=== PATIENT | female | born 1955 | race Caucasian/White ===

== ENCOUNTER → 2021-01-30 15:25 | Outpatient (BNVA) | payer OTHER, SELFPAY | PROVIDERS: PCP Physician Assistant Medical; Visit Provider Anesthesiology ==

== ENCOUNTER 2021-05-16 10:35 | Day surgery (SDC) | payer OTHER, SELFPAY ==
[2021-05-08 15:32] VITALS: BMI 35.6
--- NOTE | 2021-05-14 13:18 | P.CONAN_ITS ---
Documented by User: Patricia Cabreraney 05/14/21 13:19 HPI - Anesthesia Eval Consult details Narrative: 65yo F for Right Diagnostic Sacroiliac Joint Innervation Injection chronic prn opioids PMFSH Active Problems Active Problems: All Active Problems (Updated 05/08/21 @ 15:35 by Nieves Blake) Sacroiliitis (Acute) Chronic pain syndrome (Acute) Spondylosis (Acute) Postlaminectomy syndrome of lumbar region (Acute) Past Medical History Medical History Arrhythmia Back pain Chronic pain syndrome GERD (gastroesophageal reflux disease) HTN (hypertension) Hx of migraine headaches Hx of seasonal allergies Postlaminectomy syndrome of lumbar region Sacroiliitis Sleep apnea Spondylosis Surgical History Surgical History H/O colonoscopy History of back surgery Hx of cholecystectomy Hx of foot surgery Social History Social History Are you a primary specialist wound care to a significant other at home: No Do you presently have visiting nurse or other home services: No Patient Tobacco Use Status: Never used Tobacco Use of substances other than those prescribed or required for medical reasons: No Have you been hit, kicked, punched, or otherwise hurt by someone within the past year? If so, by whom?: No Are you DNR?: No Advance Directives Information Provided: No Recently lost weight without trying: No Eating poorly because of decreased appetite: No Nutrition Risks: No Nutritional Risk Patient : No Poor oral hygiene: No Meds Allergies Allergy/AdvReac Type Severity Reaction Status Date / Time sulfamethoxazole Allergy Intermediate HIVES Verified 05/08/21 15:03 [From Bactrim] trimethoprim [From Bactrim] Allergy Intermediate HIVES Verified 05/08/21 15:03 COMBID Allergy Intermediate EYE Uncoded 05/08/21 15:03 MUSCLES AFFECTED Home Medications Medication Instructions Recorded Confirmed Last Taken Type colestipol 1 gram tablet 1 g PO BID 01/30/21 05/08/21 Unknown History diclofenac sodium 1 % topical gel TOPICAL 01/30/21 01/30/21 Unknown History duloxetine 60 mg capsule,delayed 60 mg PO DAILY 01/30/21 05/08/21 Unknown History release lidocaine 5 % topical patch 1 patch TOPICAL DAILY 01/30/21 05/08/21 Unknown History losartan 50 mg tablet 100 mg PO DAILY 01/30/21 05/08/21 Unknown History montelukast 10 mg tablet 10 mg PO BEDTIME 01/30/21 05/08/21 Unknown History omeprazole 20 mg capsule,delayed 20 mg PO DAILY 01/30/21 05/08/21 Unknown History release oxycodone-acetaminophen 10 mg-325 1 tab PO TID PRN 01/30/21 05/08/21 Unknown History mg tablet topiramate 100 mg tablet 100 mg PO BEDTIME 01/30/21 05/08/21 Unknown History amlodipine 2.5 mg PO DAILY 05/08/21 05/08/21 Unknown History fexofenadine [Sonja] 180 mg PO BEDTIME 05/08/21 05/08/21 Unknown History naratriptan 2.5 mg PO Q4H PRN 05/08/21 05/08/21 Unknown History triamcinolone acetonide [Nasacort] 1 spray INTRANASAL DAILY 05/08/21 05/08/21 Unknown History Exam Exam Date and Time: May 14, 2021 1318 Height,Weight and Vital Signs: Height 5 ft 2 in Weight 88.451 kg Assessment and Plan Assessment Anesthesia Assessment: Chart Reviewed Documented by User: Gisselle Shaw 05/16/21 11:26 [facility] Past Medical History Medical History Arrhythmia Back pain Chronic pain syndrome GERD (gastroesophageal reflux disease) HTN (hypertension) Hx of migraine headaches Hx of seasonal allergies Postlaminectomy syndrome of lumbar region Sacroiliitis Sleep apnea Spondylosis Family History Family history of problems with anesthesia: No Surgical History Surgical History H/O colonoscopy History of back surgery Hx of cholecystectomy Hx of foot surgery History of Problems with Anesthesia: No Social History Social History Are you a primary specialist wound care to a significant other at home: No Do you presently have visiting nurse or other home services: No Patient Tobacco Use Status: Never used Tobacco Use of substances other than those prescribed or required for medical reasons: No Have you been hit, kicked, punched, or otherwise hurt by someone within the past year? If so, by whom?: No Are you DNR?: No Advance Directives Information Provided: No Recently lost weight without trying: No Eating poorly because of decreased appetite: No Nutrition Risks: No Nutritional Risk Patient : No Poor oral hygiene: No Meds Allergies Allergy/AdvReac Type Severity Reaction Status Date / Time sulfamethoxazole Allergy Intermediate HIVES Verified 05/08/21 15:03 [From Bactrim] trimethoprim [From Bactrim] Allergy Intermediate HIVES Verified 05/08/21 15:03 COMBID Allergy Intermediate EYE Uncoded 05/08/21 15:03 MUSCLES AFFECTED Home Medications Medication Instructions Recorded Confirmed Last Taken Type colestipol 1 gram tablet 1 g PO BID 01/30/21 05/08/21 Unknown History diclofenac sodium 1 % topical gel TOPICAL 01/30/21 01/30/21 Unknown History duloxetine 60 mg capsule,delayed 60 mg PO DAILY 01/30/21 05/08/21 Unknown History release lidocaine 5 % topical patch 1 patch TOPICAL DAILY 01/30/21 05/08/21 Unknown History losartan 50 mg tablet 100 mg PO DAILY 01/30/21 05/08/21 Unknown History montelukast 10 mg tablet 10 mg PO BEDTIME 01/30/21 05/08/21 Unknown History omeprazole 20 mg capsule,delayed 20 mg PO DAILY 01/30/21 05/08/21 Unknown History release oxycodone-acetaminophen 10 mg-325 1 tab PO TID PRN 01/30/21 05/08/21 Unknown History mg tablet topiramate 100 mg tablet 100 mg PO BEDTIME 01/30/21 05/08/21 Unknown History amlodipine 2.5 mg PO DAILY 05/08/21 05/08/21 Unknown History fexofenadine [Sonja] 180 mg PO BEDTIME 05/08/21 05/08/21 Unknown History naratriptan 2.5 mg PO Q4H PRN 05/08/21 05/08/21 Unknown History triamcinolone acetonide [Nasacort] 1 spray INTRANASAL DAILY 05/08/21 05/08/21 Unknown History Exam Height,Weight and Vital Signs: Vital Signs Temp Pulse Resp BP Pulse Ox 05/16/21 11:18 98.5 F 89 16 152/70 H 99 Airway Mallampati Class: II TM Dist: >3cm Neck ROM: Full Loose/Missing/Broken Teeth: Yes (Extractions) Heart: RRR Lungs: CTAB Assessment and Plan Assessment Anesthesia Assessment: Anesthesia Plan Discussed and Chart Reviewed Final Anesthetic Review NPO: Yes ASA Class: III Final Preanesthetic Review: No Changes in Pt Med Stat, Meds/Allgs Chart Reviewed, Consent Obtained/Reviewed and Anes Risks/Benef Reviewed Patient Risk: Intermediate Procedure Risk: Low Assessment/Block/Sedation in SS: Assess/Block/Sedation-SS Anesthetic Plan Anesthetic Plan: GA and MAC: Disposition: Standard PACU
--- NOTE | ~2021-05-16 | FL_ITS ---
EXAMINATION: XR FLUOROSCOPY WITH IMAGES CLINICAL INFORMATION: SI joint innervation/injection. COMPARISON: None. TECHNIQUE: Fluoroscopy performed by Dr. Manolo Tesfaye. Fluoroscopy time: 0.4 minutes DAP: 5.70 mGycm2 Images: 1 FINDINGS: There is normal symmetry of bilateral SI joints without any bony erosive changes. No visible acute fracture or lytic process seen. There are bilateral pedicular screws at L5 vertebra interconnecting kirsten superiorly. There is a disc prosthesis at the L4-L5 disc level. There are small metallic wires overlying the left sacrum. Fluoroscopy was provided for pain management. FL/FL guidance in OR IMPRESSION: Fluoroscopy was provided to referring physician for SI joint injection/pain management.
[2021-05-16 11:18] VITALS: BP 152/70; PULSE 89; RESP 16; TEMP 36.9; O2SAT 99
[2021-05-16] MEDS: Lactated Ringers 1,000 ML 100 ML IVCONT (11:41)
--- NOTE | 2021-05-16 12:50 | MHC.SHP ---
Pre-Procedural Eval Section A Date of Service: 05/16/21 Section B Chief Complaint: Postlaminectomy syndrome of lumbar region Details of Present Illness: postlaminectomy syndrome. sacroiliitis . Allergies: Allergies Allergy/AdvReac Type Severity Reaction Status Date / Time sulfamethoxazole Allergy Intermediate HIVES Verified 05/08/21 15:03 [From Bactrim] trimethoprim [From Bactrim] Allergy Intermediate HIVES Verified 05/08/21 15:03 COMBID Allergy Intermediate EYE Uncoded 05/08/21 15:03 MUSCLES AFFECTED Review of Systems Sugical H&P ROS: Negative: Cardiovascular, Neurological, Psychiatric, Hem-Onc, Allergic/Immunologic, Gastrointestinal, Genitourinary, Integumentary, Endocrine and Eyes/Ears/Nose/Throat and Yes, Specify: Constitution ( Obesity), Respiratory ( obstructive sleep apnea) and Musculoskeletal ( sacroiliitis) Exam Surgical H&P Exam: Normal: HEENT, Normal: Heart, Normal: Lungs, Normal: Extremities, Normal: Abdomen, Normal: Skin and Normal: Neurological Plan Diagnosis/Plan: Unchanged I have reviewed the history and physical and performed a pertinent physical examination on my patient. No changes have occurred unless specified.
[2021-05-16 14:00] VITALS: BP 158/97; PULSE 97; RESP 24; TEMP 36.2; O2SAT 96
[2021-05-16 14:05] VITALS: BP 122/80; PULSE 97; RESP 16; O2SAT 96
--- NOTE | 2021-05-16 14:05 | PM.OP ---
Brief Operative Note Date of Service: 05/16/21 Pre-op diagnosis: Postlaminectomy syndrome. Sacroiliitis Post-op diagnosis: same Procedure: right sacroiliac joint innervation injection. Implants: None Surgeon: Manolo Tesfaye MD Anesthesia: GETA Was an Employee Training Specialist used for this Procedure?: No Estimated blood loss (mL): 2 Condition: stable Disposition: PACU
--- NOTE | 2021-05-16 14:06 | P.OP_ITS ---
Operative Note Operative Note Date of Service: 05/16/21 Narrative: Right SI joint innervation injection. Informed consent was explained thoroughly to the patient. All questions about benefits and risks for the procedure were answered. Patient came to the operating room she was positioned prone on the operating table with the pillow under her pelvis. [employer] [place] [employer]hes[employer] monitors were applied and patient was induced with GETA and transfered prone on the ORT. All pressure points were protected. Opioids and ketamine were avoided during the sedation. Her lower back and buttocks was prepped with ChloraPrep prepped and draped with sterile towels. Sterilely draped C-arm was brought over the operating field and sq picture of patient's pelvis was demonstrated on the screen. extensive hardware was noted in the lumbar spine Hardware was obstructing the view of the right L5 pedicle and surrounding area of the right transvers and superior articilar process. The point of interests were delineated 1st: Point A as Right S1 superior articular process at it's connection with sacral alae. The point B was determined as the lowest point of the Right sacroiliac joint on sacral side of the joint. The rest of the point of interests were determined as the line between the point a endpoint be . The needles between point a endpoint bewere planned to insert in the straight line in palisade fashion. The skin in the projection of the points of interest were injected with small amount of local lidocaine 2%, after that 22 gauge 3-1/2 inch needles were driven to the point of interest in tunnel vision fashion. When needles gently contacted the bone- the each point of interest small amount of bupivacaine 0.5% less than 1 cc was injected each needle. Upon completion of the injections the needles were removed sterile dressing was applied. The patient tolerated procedure well. She went outside of the operating room to PACU where she recovered uneventfully. She went home without immediate complications.
[2021-05-16 14:10] VITALS: BP 141/93; PULSE 86; RESP 16; O2SAT 96
[2021-05-16 14:16] VITALS: BP 116/62; PULSE 98; RESP 16; O2SAT 96
[2021-05-16 14:30] VITALS: BP 136/74; PULSE 87; RESP 16; TEMP 36.2; O2SAT 96
== END 2021-05-16 14:58 | disposition home or self-care (01) ==
PROVIDERS: PCP Physician Assistant Medical; Visit Provider Anesthesiology
PROC: (CPT 64451; principal; 2021-05-16 11:30)
DX: M96.1 Postlaminectomy syndrome, not elsewhere classified (principal); M46.1 Sacroiliitis, not elsewhere classified; G89.29 Other chronic pain; I10 Essential (primary) hypertension; G47.33 Obstructive sleep apnea (adult) (pediatric); Z79.899 Other long term (current) drug therapy; Z99.89 Dependence on other enabling machines and devices
CPT/HCPCS: 64451; J0330; J1100; J2250; J2405

== ENCOUNTER → 2021-05-22 09:36 | Outpatient (BNVA) | payer OTHER, SELFPAY | PROVIDERS: PCP Physician Assistant Medical; Visit Provider Anesthesiology ==

== ENCOUNTER 2021-07-11 08:53 | Day surgery (SDC) | payer OTHER, SELFPAY ==
--- NOTE | 2021-07-10 17:12 | MHC.SHP ---
Pre-Procedural Eval Section A Date of Service: 07/11/21 Section B Chief Complaint: Sacroiliac Joint Dysfunction of Right Side Details of Present Illness: as above Relevant Family History (Specify if Yes): No Relevant Social History: None Present Medications: see Short Stay Collaborative assessment Medical History: No relevant PMH History of Previous Operations: No relevant previous surgery Allergies: Allergies Allergy/AdvReac Type Severity Reaction Status Date / Time sulfamethoxazole Allergy Intermediate HIVES Verified 05/22/21 09:37 [From Bactrim] trimethoprim [From Bactrim] Allergy Intermediate HIVES Verified 05/22/21 09:37 COMBID Allergy Intermediate EYE Uncoded 05/08/21 15:03 MUSCLES AFFECTED Review of Systems Sugical H&P ROS: Negative: Constitution, Cardiovascular, Respiratory, Neurological, Psychiatric, Hem-Onc, Allergic/Immunologic, Gastrointestinal, Genitourinary, Musculoskeletal, Integumentary, Endocrine and Eyes/Ears/Nose/Throat Exam Surgical H&P Exam: Normal: HEENT, Normal: Heart, Normal: Lungs, Normal: Extremities, Normal: Abdomen, Normal: Skin and Normal: Neurological Plan Diagnosis/Plan: Unchanged I have reviewed the history and physical and performed a pertinent physical examination on my patient. No changes have occurred unless specified.
--- NOTE | ~2021-07-11 | FL_ITS ---
EXAMINATION: XR FLUOROSCOPY WITH IMAGES CLINICAL INFORMATION: SI joint fusion. COMPARISON: Previous exam May 2021 TECHNIQUE: Fluoroscopy performed by Dr. Manolo Tesfaye. Fluoroscopy time: 1.1 minutes DAP: 13 mGy-cm2 Images: 2 FINDINGS: There is posterior fusion hardware in the lower lumbar spine. There is a new surgical device projecting over the proximal right sacroiliac joint. FL/FL guidance in OR IMPRESSION: Fluoroscopic guidance for sacroiliac joint procedure.
[2021-07-11 09:11] VITALS: BMI 35.6
[2021-07-11 09:17] VITALS: BP 171/77; PULSE 85; RESP 16; TEMP 36.4; O2SAT 98
--- NOTE | 2021-07-11 09:53 | HO.ANESPROP2 ---
HPI - Anesthesia Eval Consult details Narrative: Chronic SI joint pain PMFSH Active Problems Active Problems: All Active Problems (Updated 05/22/21 @ 10:01 by Manolo Tesfaye MD) Sacroiliac joint dysfunction of right side (Acute) Sacroiliitis (Acute) Chronic pain syndrome (Acute) Spondylosis (Acute) Postlaminectomy syndrome of lumbar region (Acute) Past Medical History Medical History Arrhythmia Back pain Chronic pain syndrome GERD (gastroesophageal reflux disease) HTN (hypertension) Hx of migraine headaches Hx of seasonal allergies Postlaminectomy syndrome of lumbar region Sacroiliac joint dysfunction of right side Sacroiliitis Sleep apnea Spondylosis Family History Family history of problems with anesthesia: No Surgical History Surgical History H/O colonoscopy History of back surgery Hx of cholecystectomy Hx of foot surgery History of Problems with Anesthesia: No Social History Social History Are you a primary child day care teacher to a significant other at home: No Do you presently have visiting nurse or other home services: No Patient Tobacco Use Status: Never used Tobacco Use of substances other than those prescribed or required for medical reasons: No Are you DNR?: No Advance Directives: No Advance Directives Information Provided: Yes Meds Allergies Allergy/AdvReac Type Severity Reaction Status Date / Time sulfamethoxazole Allergy Intermediate HIVES Verified 07/11/21 09:11 [From Bactrim] trimethoprim [From Bactrim] Allergy Intermediate HIVES Verified 07/11/21 09:11 COMBID Allergy Intermediate EYE Uncoded 05/08/21 15:03 MUSCLES AFFECTED Active Medications: Current Medications Generic Name Dose Route Start Last Admin Trade Name Freq PRN Reason Stop Dose Admin Fentanyl 50 mcg 07/11/21 09:51 Fentanyl Citrate/Pf 100 Mcg/2 Ml Vial IVPUSH Q5M PRN Pain, Severe (Pain Scale 7-10) Protocol Hydromorphone HCl 0.5 mg 07/11/21 09:51 Hydromorphone Hcl 0.5 Mg/0.5 Ml Syringe IVPUSH Q5M PRN Pain, Severe (Pain Scale 7-10) Protocol Lactated Ringer's 1,000 mls @ 50 mls/hr 07/11/21 10:00 Lr IVCONT .Q20H JESSICA Promethazine HCl 6.25 mg/ 50.25 mls @ 201 mls/hr 07/11/21 09:51 Sodium Chloride IV ONCE PRN Nausea and Vomiting Ondansetron HCl 4 mg 07/11/21 09:51 Ondansetron Hcl 4 Mg/2 Ml Vial IVPUSH ONCE PRN Nausea and Vomiting Oxycodone HCl 10 mg 07/11/21 09:51 Oxycodone Hcl Immed Release 5 Mg Tablet PO ONCE PRN Pain, Severe (Pain Scale 7-10) Home Medications Medication Instructions Recorded Confirmed Last Taken Type colestipol 1 gram tablet 1 g PO BID 01/30/21 05/08/21 Unknown History diclofenac sodium 1 % topical gel TOPICAL 01/30/21 01/30/21 Unknown History duloxetine 60 mg capsule,delayed 60 mg PO DAILY 01/30/21 05/08/21 07/11/21 06:30 History release lidocaine 5 % topical patch 1 patch TOPICAL DAILY 01/30/21 05/08/21 Unknown History losartan 50 mg tablet 100 mg PO DAILY 01/30/21 05/08/21 Unknown History montelukast 10 mg tablet 10 mg PO BEDTIME 01/30/21 05/08/21 Unknown History omeprazole 20 mg capsule,delayed 20 mg PO DAILY 01/30/21 05/08/21 07/11/21 06:30 History release oxycodone-acetaminophen 10 mg-325 1 tab PO TID PRN 01/30/21 05/08/21 07/11/21 08:30 History mg tablet Half 0630, Half 0830 topiramate 100 mg tablet 100 mg PO BEDTIME 01/30/21 05/08/21 Unknown History amlodipine 2.5 mg tablet 2.5 mg PO DAILY 05/08/21 05/08/21 05/16/21 09:00 History fexofenadine 180 mg tablet 180 mg PO BEDTIME 05/08/21 05/08/21 Unknown History naratriptan 2.5 mg tablet 2.5 mg PO Q4H PRN 05/08/21 05/08/21 Unknown History triamcinolone acetonide 55 mcg 1 spray INTRANASAL DAILY 05/08/21 05/08/21 Unknown History nasal spray aerosol (Nasacort) Exam Exam Date and Time: July 11, 2021 0953 Height,Weight and Vital Signs: Height 5 ft 2 in Weight 88.451 kg Last Vital Signs Temp 97.5 F 07/11/21 09:17 Pulse 85 07/11/21 09:17 Resp 16 07/11/21 09:17 BP 171/77 H 07/11/21 09:17 Pulse Ox 98 07/11/21 09:17 Airway Mallampati Class: II TM Dist: >3cm Neck ROM: Full Loose/Missing/Broken Teeth: No Heart: [id number] Lungs: cta b/l Assessment and Plan Assessment Anesthesia Assessment: Anesthesia Plan Discussed, PAT Visit and Chart Reviewed Final Anesthetic Review Family History of Problems with Anesthesia: No History of Problems with Anesthesia: No NPO: Yes ASA Class: III Final Preanesthetic Review: No Changes in Pt Med Stat, Meds/Allgs Chart Reviewed, Consent Obtained/Reviewed and Anes Risks/Benef Reviewed Patient Risk: Intermediate Procedure Risk: Low Assessment/Block/Sedation in SS: Assess/Block/Sedation-SS Anesthetic Plan Anesthetic Plan: GA and Agree w/ Assess. and Plan Disposition: Standard PACU
[2021-07-11] MEDS: Lactated Ringers 1,000 ML 50 ML IVCONT (09:54)
--- NOTE | 2021-07-11 12:46 | PM.OP ---
Brief Operative Note Date of Service: 07/11/21 Pre-op diagnosis: Postlaminectomy syndrome sacroiliitis right Procedure: Sacroiliac joint fusion right Implants: Cadaver bone sacroiliac joint wedge. Surgeon: Manolo Tesfaye MD Anesthesia: GETA Was an Soaking Tank Worker used for this Procedure?: No Estimated blood loss (mL): 85 Pathology: none sent Condition: stable Disposition: PACU
[2021-07-11 12:50] VITALS: BP 110/64; PULSE 91; RESP 14; TEMP 36.2; O2SAT 97
[2021-07-11 12:55] VITALS: BP 123/64; PULSE 98; RESP 16; O2SAT 98
--- NOTE | 2021-07-11 12:56 | W.PM.OPN ---
Operative Note Operative Note Date of Service: 07/11/21 Narrative: Sacroiliac joint stabilisation procedure. 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 The patient was administered 2 grams cefazolin IV approximately 15 minutes before the start of the procedure.?Time-out was performed delineating correct site, side, and nature of the procedure, name and date of of the patient, risk of fire, need for DVT prophylaxis, need for antibiotics.? The patient was transferred?on?radiolucent table. All pressure points were protected again. Lower back and bilateral buttocks were prepped with ChloraPrep and draped with full body drape. 3. 5 cm posterior midline incision over the projection of the right S1 foramina was performed.? Soft tissue dissection done to sacroiliac joint and thorough blind dissection was made in the direction of the?sacroiliac joint.? K-wire pin was inserted into the sacroiliac joint and guiding instrument was inserted into the joint using the pin as a guide and advanced into the joint on the intermittent anterior posterior and lateral views.??? After that pin was removed and rasping device was inserted to broach and rasp sacroiliac joint.? Once joint was prepared and inserted the structural allograft implant was hammered into the joint . It was packed with ortho biologics in and around the implant to provide better opportunity? for bones fusion.? Surgery was concluded by performing standard suture closing technique.? The position of the allograft was confirmed radiographically.? The wound was irrigated hemostasis was achieved wound was closed in 2 layers. Five mary were applied. Sterile?dressing was applied with bacitracin ointment The patient tolerated procedure well she was awaken and taken outside of the operating room to PACU where she recovered uneventfully. She went home without immediate complications. She will be wearing an SI joint fixation belt for the 6 weeks after the procedure.
[2021-07-11 13:00] VITALS: BP 109/62; PULSE 86; RESP 16; O2SAT 96
[2021-07-11 13:05] VITALS: BP 118/64; PULSE 90; RESP 16; O2SAT 98
[2021-07-11] MEDS: oxyCODONE HCl Immed Release 5 MG TABLET 10 MG PO (13:19)
[2021-07-11 13:20] VITALS: BP 139/66; PULSE 98; RESP 16; TEMP 36.2; O2SAT 97
== END 2021-07-11 14:03 | disposition home or self-care (01) ==
PROVIDERS: PCP Physician Assistant Medical; Visit Provider Anesthesiology
PROC: (CPT 27279; principal; 2021-07-11 10:30)
DX: M53.3 Sacrococcygeal disorders, not elsewhere classified (principal); M46.1 Sacroiliitis, not elsewhere classified; G89.4 Chronic pain syndrome; M96.1 Postlaminectomy syndrome, not elsewhere classified; I10 Essential (primary) hypertension; G47.33 Obstructive sleep apnea (adult) (pediatric); Z79.899 Other long term (current) drug therapy; Z88.2 Allergy status to sulfonamides
CPT/HCPCS: 27279; C1713; J0690; J1100; J2250; J2370; J2405; J3010; J3370

== ENCOUNTER → 2021-07-17 10:56 | Outpatient (BNVA) | payer OTHER, SELFPAY | PROVIDERS: PCP Physician Assistant Medical; Visit Provider Anesthesiology ==

== ENCOUNTER → 2021-07-23 13:37 | Outpatient (BNVA) | payer OTHER, SELFPAY | PROVIDERS: PCP Physician Assistant Medical; Visit Provider Anesthesiology ==

== ENCOUNTER → 2021-08-25 12:59 | Outpatient (BNVA) | payer OTHER, SELFPAY | PROVIDERS: PCP Physician Assistant Medical; Visit Provider Anesthesiology ==

== ENCOUNTER 2021-09-15 08:42 | Outpatient (REF) | payer OTHER, SELFPAY ==
--- NOTE | ~2021-09-15 | XR_ITS ---
EXAMINATION: XR PELVIS CLINICAL INFORMATION: Sacrococcygeal disorder, not elsewhere classified. COMPARISON: None TECHNIQUE: AP view of the pelvis. FINDINGS: The bony alignments are intact. The cortices are intact. Both SI joints and hip joints as well as symphysis pubis appear unremarkable. Postsurgical changes are noted within the included visualized lower lumbar spine. There is a radiopaque density seen projecting over the right-sided ala of the sacrum, not optimally evaluated on this single frontal view. The soft tissues are unremarkable. XR/XR pelvis min 3V IMPRESSION: 1. Single frontal view of the pelvis shows postsurgical changes within the lower lumbar spine with intact visualized hardware. 2. Radiopaque density projecting over the right-sided ala of the sacrum, not optimally evaluated on this single frontal projection 3. Unremarkable radiographic appearance of both SI joints, symphysis pubis and both hips. 4. Unremarkable soft tissues.
== END 2021-09-15 08:43 | disposition home or self-care (01) ==
LOC: HO.XRAY 08:42
PROVIDERS: PCP Physician Assistant Medical; Visit Provider Anesthesiology
DX: M53.3 Sacrococcygeal disorders, not elsewhere classified (principal); M54.2 Cervicalgia; Z98.1 Arthrodesis status; Z98.890 Other specified postprocedural states
CPT/HCPCS: 72190

== ENCOUNTER 2021-09-22 12:27 | Outpatient (REF) | payer MEDICARE, SELFPAY ==
--- NOTE | ~2021-09-22 | XR_ITS ---
EXAMINATION: XR PELVIS CLINICAL INFORMATION: Pain COMPARISON: Previous x-ray 09/15/2021 TECHNIQUE: Lateral view of the pelvis FINDINGS: There is orthopedic hardware with posterior rods and interpedicular screws in the lower spine at L4 and L5. The sacrum and coccyx are normal-appearing. The radiopaque density projecting over the right proximal sacrum on 09/15/2021 AP pelvis x-ray is not identified on the lateral view. XR/XR pelvis 1-2V IMPRESSION: Postsurgical changes to the lower lumbar spine. Normal-appearing sacrum.
== END 2021-09-22 12:28 | disposition home or self-care (01) ==
LOC: HO.XRAY 12:27
PROVIDERS: PCP Physician Assistant Medical; Visit Provider Anesthesiology
DX: M53.3 Sacrococcygeal disorders, not elsewhere classified (principal); M46.1 Sacroiliitis, not elsewhere classified; G89.4 Chronic pain syndrome
CPT/HCPCS: 72170

== ENCOUNTER → 2021-09-29 09:18 | Outpatient (BNVA) | payer MEDICARE, SELFPAY | PROVIDERS: PCP Physician Assistant Medical; Visit Provider Anesthesiology | DX: Z51.81 Encounter for therapeutic drug level monitoring (principal); M53.3 Sacrococcygeal disorders, not elsewhere classified | CPT/HCPCS: 99212 ==

== ENCOUNTER 2021-09-30 06:32 | Outpatient (REF) | payer MEDICARE, SELFPAY | END 2021-09-30 06:33 | disposition home or self-care (01) | LOC: HO.RADIR 06:32 | PROVIDERS: Visit Provider Anesthesiology | DX: Z13.89 Encounter for screening for other disorder (principal) ==

== ENCOUNTER 2025-06-01 10:59 | Outpatient (AMB) | payer MEDICARE, SELFPAY ==
--- NOTE | 2025-06-01 11:02 | A.SPINEOV_ITS ---
Vital Signs 06/01/25 11:06 Height 5 ft 2 in Weight 230 lb BMI 42.1 Intake Visit Reasons: pain left side of back going leg Intake Note: Ms. Styles is here today c/o Low back pain on the left side going down the leg. 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 Allergies sulfamethoxazole (From Bactrim) Allergy (Intermediate, Verified 06/01/25 11:07) HIVES trimethoprim (From Bactrim) Allergy (Intermediate, Verified 06/01/25 11:07) HIVES COMBID Allergy (Intermediate, Uncoded 05/08/21 15:03) EYE MUSCLES AFFECTED Physical Exam Vital Signs: BMI result Body Mass Index 42.1 Assessment & Plan Assessment & Plan (1) Lumbar back pain with radiculopathy affecting left lower extremity: Code(s): M54.16 - Radiculopathy, lumbar region Category: Medical (2) Neural foraminal stenosis of lumbar spine: Code(s): M48.061 - Spinal stenosis, lumbar region without neurogenic claudication Category: Medical Plan Dear colleague Thank you for referring Martha Styles to the office today with a chief complaint of left leg pain. HPI: This 69-year-old female is status post 3 level lumbar fusion 2018. She states that proximally 3 months ago she developed left leg pain that radiates into the groin to the outside of her thigh lower leg and to the top of her foot. The pain is severe and constant. No numbness or weakness. A 2nd complaint is bilateral pain in the SI joint regions. She can not lay on her side. The pain wakes her up at night. She had a bilateral nerve block done by Dr. Monsalve but has not noted any difference. She opted her oxycodone from her half tablet they to 1.5 tablets a day to control her pain. In addition she uses Voltaren cream, Cymbalta PMH: Hypertension, prediabetes and allergies Medications: Vitamin-B, buprenorphine, coenzyme Q10, diclofenac gel, duloxetine, fexofenadine, indapamide, lidocaine 5% patch, losartan, montelukast, nasal cord p.r.n., omeprazole, oxycodone 08/10/2025, pregabalin, tirzepatide weekly Allergies: Combid and Bactrim Social history: . Nonsmoker Physical Exam: Pleasant female in agony. She walks with a flexed position. Straight leg raise produces pain down her left leg in an L5 distribution. There is pain over the bilateral SI joints. However provocative SI joint tests are negative. No motor or sensory deficits. Radiological Studies: MRI done at [facility] on 01/08/2025 shows status post L2-L5 lumbar fusion. More importantly there is severe left L5 foraminal stenosis due to bone spur. Impression/Plan: This patient is suffering from a left L5 lumbar radiculopathy explained by a left L5 foraminal stenosis. She also is experiencing some symptoms of sacroiliitis. However the left lumbar radiculopathy is new and debilitating to the patient. I offered her foraminotomy to decompress the nerve root. She is tentatively scheduled for 07/12/2025. She will get preoperative clearance from the primary care physician. She needs to stop her tirzepatide 1 week prior to surgery Thank you for allowing me to participate in your patients care. total time spent was 50 minutes in counseling ,coordination of plan, personal review of imaging, surgical decision making and subsequent plan Juarez Elizabeth MD, PhD Spine Fellowship Trained Neurosurgeon Director, [facility] Coding Level of Care Code New Pt Level 4 (32210) Diagnoses Lumbar back pain with radiculopathy affecting left lower extremity M54.16 Neural foraminal stenosis of lumbar spine M48.061
[2025-06-01 11:06] VITALS: BMI 42.1
--- OUTSIDE RECORDS SUMMARY | 2025-06-01 11:09 | XMS_ITS | Patient Health Record ---
[facility] [place] Address [address] [place] [id number] Care Team Providers Care Demo Coordinator Name Role Phone Colin Leiva MD Primary Care Provider Ricardo Lo Unavailable [phone] Allergies Allergen (clinical drug ingredient) Drug/Non Drug Allergy documented on EMR Reaction Allergy Type Onset Date Status Information temporarily unavailable combid eye trouble Drug Allergy Active Information temporarily unavailable sulfa hives Drug Allergy Active Reason For Referral No Information Medications Medication SIG (Take, Route, Frequency, Duration) Notes Start Date End Date Status Nabumetone 750 MG 1 tablet Orally ONCE A DAY WITH FOOD; Duration: 30 day(s) Active Sonja Active Topamax 100 mg qd Activ e hydroCHLOROthiazide 25 mg qd Active Fluticasone Furoate 27.5 MCG/SPRAY 2 puffs in each nostril Nasally Once a day; Duration: 30 day(s) Active Physical Therapy 3-4x per week for 3- 4 weeks 10/28/2011 Active Problems Problem Type SNOMED Code ICD Code Onset Dates Problem Status W/U Status Risk Notes Problem Plantar Fasciitis (728.71) Active confirmed Plan Of Treatment Pending Test Test Name Order Date [id number] TENDON SHEATH/LIGAMENT 1 12/16/2010 Insurance Providers Payer Name Payer Address Payer Phone Subscriber Number Group Number Insured Name Patient Relationship to Insured Coverage Start Date Coverage End Date [facility] [address] [place] [address] [phone] [id number] Martha Styles Self - patient is the insured Medical (General) History Medical History History ICD Code mumps measles hypertension headaches/migraines back, hip, knee pain asthma Surgical History Surgery Date(Month/Year) cholecystectomy tubal ligation topaz left foot
--- OUTSIDE RECORDS SUMMARY | 2025-06-01 11:09 | XMS_ITS | Clinical Summary ---
Author Organization [facility] [address] [place] [address] [place] [phone] Phone Care Team Providers Care Medical Transcription Supervisor Name Role Phone Petros Wren Primary Care Provider [phone] Allergies Active Allergy Reactions Criticality Noted Date Comments Other Other 02/10/2006 Combid, Eyes rolled back in head Sulfa (Sulfonamide Antibiotics) Hives Medium 12/17/2006 RASH Medications MULTIVITAMIN ORAL Take by mouth 1 (one) time each day. With iron Active diclofenac (VOLTAREN) 1 % topical gel Apply 3 g topically 3 (three) times a day. 11/12/19 23 Active fexofenadine (ROXANE) 180 mg tablet Take 1 tablet (180 mg total) by mouth 1 (one) time each day. Active lidocaine (LIDODERM) 5 % patch Place 3 patches on the skin 1 (one) time each day. for 360 days. Apply for no more than 12 hours in any 24 hour period. 05/17/20 23 Active oxyCODONE-acet aminophen (PERCOCET) 10-325 mg per tablet Take 1 tablet by mouth every 8 (eight) hours if needed (Pain). 01/28/20 24 Active triamcinolone (Nasacort) 55 mcg nasal inhaler Administer 1 spray into affected nostril(s) 1 (one) time each day. 12/22/19 17 Active buprenorphine (BUTRANS) 20 mcg/hour Place 1 patch on the skin 1 (one) time per week. Active indapamide (LOZOL) 2.5 mg tablet Take 1 tablet (2.5 mg total) by mouth 1 (one) time each day in the morning. 90 tablet 3 09/25/20 Active montelukast (SINGULAIR) 10 mg tablet Take 1 tablet (10 mg total) by mouth 1 (one) time each day. 90 tablet 3 09/25/20 24 Active DULoxetine (CYMBALTA) [address] capsule Take 1 capsule (60 mg total) by mouth 1 (one) time each day. 90 capsule 3 09/25/20 24 Active coenzyme Q-10 30 mg capsule Take 1 capsule (30 mg total) by mouth 1 (one) time each day. Active B complex tablet Take 1 tablet by mouth 1 (one) time each day. Active magnesium oxide (MAG-OX) 400 mg magnesium tablet Take 1 tablet (400 mg total) by mouth 1 (one) time each day. Active pregabalin (LYRICA) 100 mg capsule 1 capsule (100 mg total) 3 (three) times a day. 03/01/20 Active tiZANidine (ZANAFLEX) 4 mg tablet 03/01/20 Active tirzepatide (MOUNJARO) 2.5 mg/0.5 mL injection Inject 0.5 mL (2.5 mg total) under the skin every 7 (seven) days. 6 mL 3 03/26/20 Active Additional Information Patient not taking.Reported on 05/17/2025 losartan (COZAAR) 100 mg tablet TAKE 1 TABLET BY MOUTH DAILY 90 tablet 1 05/24/20 Active omeprazole (PriLOSEC) [address] capsule TAKE 1 CAPSULE BY MOUTH DAILY 90 capsule 1 05/24/20 25 Active losartan (COZAAR) 100 mg tablet Take 1 tablet (100 mg total) by mouth 1 (one) time each day. 03/21/20 025 Discontinued omeprazole (PriLOSEC) [address] capsule Take 1 capsule (20 mg total) by mouth 1 (one) time each day. 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 S/p 30 day loop 09/2018. Normal TTE 08/2018 Migraine 06/28/2018 Class 2 obesity 06/09/2018 Nocturnal hypoxemia 04/13/2017 Obstructive sleep apnea 04/12/2017 Overview (08/15/2024): Allergy 05/18/2016 Overview (08/15/2024): Dr ya Levoscoliosis 04/17/2016 Lumbar degenerative disc disease 04/17/2016 Osteoarthritis of spine with radiculopathy, lumb ar region 04/17/2016 Heartburn 05/21/2014 Plantar fasciitis 03/20/2011 Overview (08/15/2024): FOLLOWED BY DR JENNIFER ESTEVEZ Essential hypertension, benign 10/22/2005 Headache 10/22/2005 Encounters Date Type Department Care Team Description 05/29/2025 8:47 AM EDT Anesthesia Event [facility] [address] [place] [phone] Lion Teran MD Gomes, Sheldon B, MD 05/29/2025 8:35 AM EDT - 05/29/2025 11:59 PM EDT Hospital Encounter [facility] Xray [address] [place] [phone] Pain Discharge Disposition: Home or Self Care 05/29/2025 7:37 AM EDT Hospital Encounter [facility] [address] [place] [phone] Nasir Monsalve DO Slanda, Summer, STONE OPERATOR Radiculopathy, lumbar region 05/04/2025 [facility] [place] [address] [phone] Perla Cordero MD dme request 03/26/2025 10:30 AM EDT Office Visit [address] [phone] Petros Wren PA Type 2 diabetes mellitus without complication, without long-term current use of insulin (CMS/[facility] V24, CMS/[facility] V28) (Primary Dx); Obstructive sleep apnea; Essential hypertension, benign; Heartburn; PAC (premature atrial contraction); Class 2 obesity from Last 3 Months Immunizations Name Administration Dates Next Due Influenza Quadravalent, MDCK , 0.5ml, preservative free (Flucelvax) 6mo and older 08/05/2022,09/09/2021,09/30/2020,09/25,10/05/2018 Influenza trivalent, 0.5mL ( Fluad) 65yo and older 09/25/2024 Moderna SARS-CoV-2 COVID-19, mRNA, LNP-S, preservative free 12/08/2021,07/06/2021,06/08/2021 Pneumococcal conjugate 20 va lent (Prevnar 20, PCV 20) 2mo and older 02/10/2023 Pneumococcal polysaccharide 23 valent (Pneumovax 23) 2yo and older 11/18/2016 Td Tetanus diptheria (Tdvax) 7yo and older 09/30/2020 Tdap Tetanus diptheria acell ular pertussis (Boostrix; Adacel) 7yo and older 09/15/2010 Zoster recombinant (Shingrix ) 19yo and older 08/09/2019,06/10/2019 Surgical History Surgery Date Site/Laterality Comments CHOLECYSTECTOMY PROCEDURE: HISTORICAL CHOLECYSTECTOMY; COMMENT: 2004 OTHER SURGICAL HISTORY 12/15/11 PROCEDURE: HISTORY OTHER; COMMENT: left partial plantar fasciectomy - Dr. Carson TUBAL LIGATION PROCEDURE: HISTORICAL TUBAL LIGATION ELBOW SURGERY Right PROCEDURE: HISTORICAL ELBOW SURGERY; COMMENT: right FOOT SURGERY Left PROCEDURE: HISTORICAL FOOT SURGERY; COMMENT: left tarsal tunnel WISDOM TOOTH EXTRACTION PROCEDURE: HISTORICAL WISDOM TEETH EXTRACTION BACK SURGERY 01/2019 PROCEDURE: HISTORICAL BACK SURGERY; COMMENT: Fusion L3/4/5 COLONOSCOPY 07/11/2019 PROCEDURE: HISTORICAL COLONOSCOPY; COMMENT: normal Medical History Medical History Date Comments Obesity, unspecified 10/22/2005 DX:Obesity, unspecified Essential hypertension, benign 10/22/2005 D X:Essential hypertension, benign Headache(784.0) 10/22/2005 DX:Headache(784. 0) Otalgia, unspecified 10/22/2005 DX:Otalgia, unspecified Plantar fasciitis 03/20/2011 DX:Plantar fas ciitis Chronic low back pain 11/26/2015 DX:Chronic low back pain Allergy 05/18/2016 DX:Allergy; COMM ENT: Dr ya PAC (premature atrial contraction) 10/05/2018 DX:PAC (premature atrial contraction); COMMENT: No atrial fib. S/p 30 day loop 09/2018. Normal TTE 08/2018 Sleep apnea GERD (gastroesophageal reflux disease) Joint pain Arthritis Levoscoliosis of lumbar spine Family History Medical History Relation Name Comments Hypertension Brother 1 Coronary artery disease Brother 2 had a stent, [place] Coronary artery disease Father DC @ 58 Stroke Maternal Grandmother Arthritis Mother Hypertension Mother Brain Aneurysm Paternal Grandmother Arthritis Sister 1 Other: prediabetes Sister 2 Breast cancer Neg Hx Colon cancer Neg Hx Ovarian cancer Neg Hx Relation Name Status Comments Brother 1 Alive htn Brother 2 Alive cad stent Father (Age 58) mi Maternal Grandmother Mother (Age 81) renal fail ure dm htn Paternal Grandmother Sister 1 Alive Sister 2 Alive diabetic Social History Tobacco Use Types Packs/Day Years Used Date Smoking Tobacco: Never Smokeless Tobacco: Never Tobacco Cessation:Counseling Given: Not Answered Alcohol Use Standard Drinks/Week Comments No 0 (1 standard drink = 0.6 oz pur e alcohol) Housing Instability Answer Date Recorde d Are you worried that in the next 2 months you may not have stable housing? No 03/26/2025 Food Access & Nutrition Answer Date Rec orded Do you have access to a vari ety of food including fruits and vegetables? Yes 03/26/2025 Health Literacy Answer Date Recorded How often do you need to hav e someone help you when you read instructions, pamphlets, or other written material from your doctor or pharmacy? Never 03/26/2025 Caregiver: How often do you need to have someone help you when you read instructions, pamphlets, or other written material from your doctor or pharmacy? Not on file 03/26/2025 Financial Risk Answer Date Recorded How hard is it for you to pa y for the very basics like food, housing, medical care, and air conditioning / heating? Not very hard 03/26/2025 Transportation Answer Date Recorded Has the lack of transportati on kept you from meetings, work, or from getting things needed for daily living? No Has the lack of transportati on kept you from medical appointments or from getting medications? No 03/26/2025 Social Isolation Answer Date Recorded How often do you feel lonely or isolated from th ose around you? Never 03/26/2025 Food Risk Answer Date Recorded Within the past 12 months we worried whether our food would run out before we got money to buy more. Never true 03/26/2025 Within the past 12 months th e food we bought just didn't last and we didn't have money to get more. Never true 03/26/2025 Dependent Care Answer Date Recorded Do you need help finding or paying for care for your loved ones. For example, child care associate or elderly care for an older adult? No 03/26/2025 Education Answer Date Recorded Do you think completing more education or training, like finishing a GED, going to college, or learning a trade, would be helpful for you? No 03/26/2025 Employment and Income Answer Date Recor ded During the last four weeks, have you been actively looking for work? No 03/26/2025 Living Situation Answer Date Recorded What is your living situation? 0 03/26/2025 Interpersonal Safety Answer Date Record ed Physical Abuse 05/29/2025 Verbal Abuse 05/29/2025 Comments No Sex and Gender Information Value Date Recorded Sex Assigned at Female 12/04/2024 3:23 PM EST Legal Sex Female 1:28 AM EST Gender Identity Female 12/04/2024 3:23 PM EST Sexual Orientation Straight 12/05/2024 6: 30 AM EST Obstetrics History Para Term AB IAB SAB Ectopic Multiple Livin g Live Births 2 2 2 2 Date Outcome GA Total Labor Labor/2nd/3rd Weight Sex Type Anes PTL Beti A1 A5 Name Clin Term Term Last Filed Vital Signs Vital Sign Reading Time Taken Comments Blood Pressure 145/95 05/29/2025 9:21 AM EDT Pulse 74 05/29/2025 9:21 AM EDT Temperature 36.5 C (97.7 F) 05/29/2025 9:11 AM EDT Respiratory Rate 18 05/29/2025 9:11 AM EDT Oxygen Saturation 97% 05/29/2025 9:21 AM EDT Inhaled Oxygen Concentration - - Weight 104 kg (230 lb) 05/29/2025 7:49 AM EDT Height 157.5 cm (5' 2 ) 05/29/2025 7:49 AM EDT Body Mass Index 42.07 05/29/2025 7:49 AM EDT Plan of Treatment Upcoming Encounters Date Type Department Care Team (Late st Contact Info) Description 06/08/2025 10:45 AM EDT Office Visit Pulmonolgy - [place] [facility] [address] [place] [phone] Perla Cordero MD [address] [address] 10/01/2025 10:30 AM EST Office Visit [facility] - [address] [phone] Petros Wren PA [address] [place] [phone] 02/20/2026 10:40 AM EDT Appointment Radiology Department - [address] [phone] Health Maintenance Due Date Last Done Comments RSV Immunization Adult Patients (1 - Risk 60-74 years 1-dose series) 2017 Medicare Annual Wellness Visit 10/17/2022 COVID-19 Vaccine ( season) 2024 12/08/2021, 07/06/2021, 06/08/2021 Diabetes: Annual Foot Exam 07/06/2025 07/06/2024 Influenza Vaccine (#1) 2025 , 08/05/2022, 09/09/2021, Additional history exists Diabetes: Blood Sugar Control Test (HGBA1C) 09/26/2025 03/26/2025, 10/26/2024, 07/06/2024, Additional history exists Diabetes: Annual Retina Eye Exam 03/21/2026 03/21/2025, 03/15/2024 Diabetes: Annual Urine Albumin-Creatinine Ratio (uACR) 03/26/2026 03/26/2025, 10/26/2024, 03/21/2024 Diabetes: Annual GFR (Glomerular Filtration Rate) 03/26/2026 03/26/2025, 10/26/2024, 03/21/2024, Additional history exists Hypertension/CHF/CAD Annual BMP Blood Test 03/26/2026 03/26/2025, 10/26/2024, 03/21/2024, Additional history exists Social Influencers of Health Screening 03/26/2026 03/26/2025 Falls Risk Assessment 05/29/2026 05/29/2025 Breast Cancer Screening 02/16/2027 02/17/20 25, 02/07/2024, 01/28/2023, Additional history exists Colorectal Cancer Screening: Colonoscopy 07/11/2029 07/11/2019 Cholesterol Screening (Lipid Panel) 03/26/2030 03/26/2025, 10/26/2024, 03/21/2024, Additional history exists DTaP,Tdap,and Td Vaccines (3 - Td or Tdap) 09/30/2030 09/30/2020, 09/15/2010 Osteoporosis Screening (Bone Density Screening) 01/26/2033 01/26/2023 Hepatitis C Screening Completed 05/17/2013 Zoster Vaccines Completed 08/09/2019, 06/10/2019 Pneumococcal Vaccine: 50+ Years Completed 02/10/2023, 11/18/2016 Depression Screening Completed 03/26/2025 HIB Vaccines Aged Out No longer eligi ble based on patient's age to complete this topic HPV Vaccines Aged Out No longer eligi ble based on patient's age to complete this topic Hepatitis A Vaccines Aged Out No long er eligible based on patient's age to complete this topic Hepatitis B Vaccines Aged Out No long er eligible based on patient's age to complete this topic IPV Vaccines Aged Out No longer eligi ble based on patient's age to complete this topic MMR Vaccines Aged Out No longer eligi ble based on patient's age to complete this topic Meningococcal ACWY Vaccine Aged Out N o longer eligible based on patient's age to complete this topic Meningococcal B Vaccine Aged Out No l onger eligible based on patient's age to complete this topic RSV Immunization Patients Under 20 months Aged Out No longer eligible based on patient's age to complete this topic Varicella Vaccines Aged Out No longer eligible based on patient's age to complete this topic Procedures Procedure Name Priority Date/Time Associated Diagnosis Comments LIPID PANEL WITH REFLEX TO DIRECT LDL Routine 03/26/2025 11:15 AM EDT Type 2 diabetes mellitus without complication, without long-term current use of insulin ([facility] V24, [facility] V28) Obstructive sleep apnea Essential hypertension, benign Heartburn PAC (premature atrial contraction) Class 2 obesity MICROALBUMIN CREATININE URINE RATIO Routine 03/26/2025 11:15 AM EDT Type 2 diabetes mellitus without complication, without long-term current use of insulin ([facility] V24, [facility] V28) Obstructive sleep apnea Essential hypertension, benign Heartburn PAC (premature atrial contraction) Class 2 obesity COMPREHENSIVE METABOLIC PANEL Routine 03/26/2025 11:15 AM EDT Type 2 diabetes mellitus without complication, without long-term current use of insulin ([facility] V24, [facility] V28) Obstructive sleep apnea Essential hypertension, benign Heartburn PAC (premature atrial contraction) Class 2 obesity HEMOGLOBIN A1C Routine 03/26/2025 11:15 AM EDT Type 2 diabetes mellitus without complication, without long-term current use of insulin ([facility] V24, [facility] V28) Obstructive sleep apnea Essential hypertension, benign Heartburn PAC (premature atrial contraction) Class 2 obesity MG MAMMO DIGITAL SCREENING W AKHIL BILAT Routine 02/16/2025 10:24 AM EDT Encounter for screening mammogram for breast cancer DIABETES FOOT EXAM Routine 07/06/2024 DIABETES EYE EXAM Routine 03/15/2024 DXA BONE DENSITY STUDY 1+ SITS AXIAL SKEL Routine 01/26/2023 11:11 AM EDT Abnormal findings on diagnostic imaging of other parts of musculoskeletal system COLONOSCOPY Routine 07/11/2019 HEPATITIS C SCREENING Routine 05/17/2013 from Last 3 Months or Most Recently Relevant to Health Maintenance Results * (ABNORMAL) Lipid panel with reflex to direct LDL (03/26/2025 11:15 AM EDT) Cholesterol 212(H) 0 - 200 mg/dL LAB CHEMISTRY METHOD 03/26/2025 6:20 PM EDT [facility] Triglycerides 125 0 - 150 mg/dL LAB CHEMISTRY METHOD 03/26/2025 6:20 PM EDT [facility] HDL 85 >=40 mg/dL LAB CHEMISTRY METHOD 03/26/2025 6:20 PM EDT [facility] LDL Calculated 102(H) 0 - 100 mg/dL LAB CHEMISTRY METHOD 03/26/2025 6:20 PM EDT [facility] VLDL Cholesterol Ramesh 25 mg/dL LAB CHEMISTRY METHOD 03/26/2025 6:20 PM EDT [facility] Non HDL Chol. (LDL+VLDL) 127 <145 mg/dL LAB CHEMISTRY METHOD 03/26/2025 6:20 PM EDT [facility] Chol/HDL Ratio 2.5 0.0 - 4.4 LAB CHEMISTRY METHOD 03/26/2025 6:20 PM EDT [facility] Blood Venous blood specimen / Unknown Venipuncture / Unknown 03/26/2025 11:15 AM EDT 03/26/2025 11:15 AM EDT us Petros OGDEN LAB BLOOD ORDERABLES Brissa sorensen Result [facility] [address] [place] [address], * (ABNORMAL) Microalbumin creatinine urine ratio (03/26/2025 11:15 AM EDT) Creatinine, Urine 16.0 mg/dL LAB CHEMISTRY METHOD 03/26/2025 2:51 PM EDT [facility] Microalb, Ur 5.0 0.0 - 29.0 mg/L LAB CHEMISTRY METHOD 03/26/2025 2:51 PM EDT [facility] Microalb/Creat Ratio 31(H) <30 mg/g creat LAB CHEMISTRY METHOD 03/26/2025 2:51 PM EDT [facility] Urine Urine specimen obtained by clean catch procedure / Unknown Non-blood Collection / Unknown 03/26/2025 11:15 AM EDT 03/26/2025 11:15 AM EDT Petros OGDEN LAB URINE ORDERABLES Brissa l Result Performing Organization Address City/[facility]/ZIP Co de Phone Number [facility] [address] [place] [address], [place] [phone] * (ABNORMAL) Hemoglobin A1c (03/26/2025 11:15 AM EDT) [facility] Hemoglobin A1C 6.8(H) <6.5 % LAB CHEMISTRY METHOD 03/26/2025 9:54 PM EDT [facility] Mean Bld Glu Estim. 148 mg/dL LAB CHEMISTRY METHOD 03/26/2025 9:54 PM EDT [facility] Blood Venous blood specimen / Unknown Venipuncture / Unknown 03/26/2025 11:15 AM EDT 03/26/2025 11:15 AM EDT Petros OGDEN LAB BLOOD ORDERABLES Brissa l Result [facility] [address] [place] [address], [place] [phone] * (ABNORMAL) Comprehensive metabolic panel (03/26/2025 11:15 AM EDT) Sodium 137 133 - 145 mmol/L LAB CHEMISTRY METHOD 03/26/2025 6:15 PM [facility] Potassium 4.2 3.5 - 5.5 mmol/L LAB CHEMISTRY METHOD 03/26/2025 6:15 PM [facility] Chloride 99 96 - 110 mmol/L LAB CHEMISTRY METHOD 03/26/2025 6:15 PM [facility] CO2 32 21 - 32 mmol/L LAB CHEMISTRY METHOD 03/26/2025 6:15 PM [facility] Anion Gap 6 3 - 11 LAB CHEMISTRY METHOD 03/26/2025 6:15 PM [facility] Glucose 85 70 - 100 mg/dL LAB CHEMISTRY METHOD 03/26/2025 6:15 PM [facility] BUN 12 5 - 25 mg/dL LAB CHEMISTRY METHOD 03/26/2025 6:15 PM [facility] Creatinine 0.64 0.50 - 1.10 mg/dL LAB CHEMISTRY METHOD 03/26/2025 6:15 PM [facility] eGFR 97 >=60 mL/min/1. 73m2 LAB CHEMISTRY METHOD 03/26/2025 6:15 PM [facility] Comment:Calculation based on the Chronic Kidney Disease Epidemiology Collaboration (CKD-EPI) equation refit without adjustment for race. BUN/Creatinine Ratio 18.8 LAB CHEMISTRY METHOD 03/26/2025 6:15 PM [facility] Calcium 9.5 8.5 - 10.5 mg/dL LAB CHEMISTRY METHOD 03/26/2025 6:15 PM [facility] AST (SGOT) 21 10 - 42 unit/L LAB CHEMISTRY METHOD 03/26/2025 6:15 PM [facility] ALT (SGPT) 34 10 - 60 unit/L LAB CHEMISTRY METHOD 03/26/2025 6:15 PM [facility] Alkaline Phosphatase 161(H) 42 - 121 unit/L LAB CHEMISTRY METHOD 03/26/2025 6:15 PM EDT [facility] Total Protein 7.7 6.0 - 8.0 g/dL LAB CHEMISTRY METHOD 03/26/2025 6:15 PM EDT [facility] Albumin 3.9 3.2 - 5.0 g/dL LAB CHEMISTRY METHOD 03/26/2025 6:15 PM EDT [facility] Total Bilirubin 0.4 0.0 - 1.4 mg/dL LAB CHEMISTRY METHOD 03/26/2025 6:15 PM EDT [facility] Blood Venous blood specimen / Unknown Venipuncture / Unknown 03/26/2025 11:15 AM EDT 03/26/2025 11:15 AM EDT Petros OGDEN LAB BLOOD ORDERABLES Brissa sorensen Result [facility] [address] [place] [address], [place] [phone] * MG Mammo Digital Screening w Akhil bilat (02/16/2025 10:24 AM EDT) Anatomical Region Laterality Modality Breast Bilateral Mammography 02/16/2025 2:20 PM EDT Impressions 02/16/2025 2:25 PM EDT Benign. BI-RADS CATEGORY: 1 - NEGATIVE RECOMMENDATION: Screening bilateral mammogram is recommended in 1 year. Mammo Location: [facility], [address] [place] [address], [phone], . -------- FINAL REPORT -------- Dictated By: Aline Pro Dictated Date: 02/16/2025 14:20 ET Assigned Physician: Aline Pro Reviewed and Electronically Signed By: Aline Pro Signed Date: 02/16/2025 14:25 ET Workstation ID: [id number] Transcribed By: Self Edit Transcribed Date: 02/16/2025 14:20 ET Narrative 02/16/2025 2:25 PM EDT CLINICAL: 69 years old, Female, routine annual exam. COMPARISON: Mammograms dating back to 10/08/2020... Recent of 02/07/2024. TECHNIQUE: Bilateral MLO and CC views were obtained digitally with 3-D mammogram (digital breast tomosynthesis). Computer-aided detection was utilized in evaluation of this exam (CAD). FINDINGS: There is no evidence of suspicious mass or architectural distortion. No worrisome calcifications are evident. Benign asymmetric densities in both breasts are again noted. There has been no significant change from prior exam(s). BREAST DENSITY: B - There are scattered areas of fibroglandular density. Procedure Note Aline Pro MD - 02/16/2025 CLINICAL: 69 years old, Female, routine annual exam. COMPARISON: Mammograms dating back to 10/08/2020... Recent of 02/07/2024. TECHNIQUE: Bilateral MLO and CC views were obtained digitally with 3-Dmammogram (digital breast tomosynthesis). Computer-aided detection wasutilized in evaluation of this exam (CAD). FINDINGS: There is no evidence of suspicious mass or architectural distortion. Noworrisome calcifications are evident. Benign asymmetric densities in bothbreasts are again noted. There has been no significant change from priorexam(s). BREAST DENSITY: B - There are scattered areas of fibroglandular density. IMPRESSION: Benign. BI-RADS CATEGORY: 1 - NEGATIVE RECOMMENDATION: Screening bilateral mammogram is recommended in 1 year. Mammo Location: [facility], [address] [place] [address], [phone], . -------- FINAL REPORT -------- Dictated By: Aline Pro Dictated Date: 02/16/2025 14:20 ET Assigned Physician: Aline Pro Reviewed and Electronically Signed By: Aline Pro Signed Date: 02/16/2025 14:25 ET Workstation ID: [id number] Transcribed By: Self Edit Transcribed Date: 02/16/2025 14:20 ET us Petros D Starop[place] PA IMG BI PROCEDURES Final R esult * Diabetes Foot Exam (07/06/2024) Pathologist [facility] Diabetes: Annual Foot Exam Abstracted Historical Provider MD HEALTH MAINTENANCE Final Result * Diabetes Eye Exam (03/15/2024) Pathologist [facility] Diabetes: Annual Retina Eye Exam Abstracted Historical Provider PR HEALTH MAINTENANCE Final Result * DXA BONE DENSITY STUDY 1+ SITS AXIAL SKEL (01/26/2023 11:11 AM EDT) Anatomical Region Laterality Modality Bone Densitometr y 11/12/2022 10:5 7 AM EST Narrative 01/26/2023 3:38 PM EDT BONE DENSITY LEFT WRIST T-score is +2.4 (SD relative to 20-29 y/o adult) Z-score is +4.0 (SD relative to age matched peers) This is normal by criteria defined by the WHO. Left Hip T-score is +2.7 Z-score is +3.9 This is normal by criteria defined by the WHO. Comparison exam(s): significant decrease in bone density of hip when compared to most recent bone density examination Confidence level is +/-95%. Impression: Based on the World Health Organization criteria, Martha Styles should be classified as having normal bone density. The [facility] Department of Internal Medicine recommends using National Osteoporosis Foundation (NOF) guidelines in treatment decisions related to osteoporosis. NOF guidelines suggest considering treatment for postmenopausal women and men aged 50 or older presenting with the following: History of hip or vertebral fracture. T-score less than or equal to -2.5 (DXA) at the femoral neck, total hip, or spine, after appropriate evaluation to exclude secondary causes. Low bone mass (T-score between -1.0 and -2.5 at the femoral neck or spine) AND a 10-year probability of a hip fracture greater than or equal to 3% OR a 10-year probability of a major osteoporosis-related fracture greater than or equal to 20% based on the [place]-adapted WHO algorithm Please note that all treatment decisions require clinical judgment and consideration of individual patient factors, including patient preferences, co-morbidities, previous drug use, risk factors not captured in the FRAX model (e.g., frailty, falls, vitamin D deficiency, increased bone turnover, interval significant decline in bone density) and possible under- or over-estimation of fracture risk by FRAX. Procedure Note Irma Knowles MD - 12/13/2023 BONE DENSITY LEFT WRIST T-score is +2.4 (SD relative to 20-29 y/o adult) Z-score is +4.0 (SD relative to age matched peers) This is normal by criteria defined by the WHO. Left Hip T-score is +2.7 Z-score is +3.9 This is normal by criteria defined by the WHO. Comparison exam(s): significant decrease in bone density of hip whencompared to most recent bone density examination Confidence level is +/-95%. Impression: Based on the World Health Organization criteria, Martha Styles should beclassified as having normal bone density. The [facility] Department of Internal Medicine recommendsusing National Osteoporosis Foundation (NOF) guidelines in treatmentdecisions related to osteoporosis. NOF guidelines suggest consideringtreatment for postmenopausal women and men aged 50 or older presentingwith the following: History of hip or vertebral fracture. T-score less than or equal to -2.5 (DXA) at the femoral neck, total hip,or spine, after appropriate evaluation to exclude secondary causes. Low bone mass (T-score between -1.0 and -2.5 at the femoral neck or spine)AND a 10-year probability of a hip fracture greater than or equal to 3% ORa 10-year probability of a major osteoporosis-related fracture greaterthan or equal to 20% based on the [place]-adapted WHO algorithm Please note that all treatment decisions require clinical judgment andconsideration of individual patient factors, including patientpreferences, co-morbidities, previous drug use, risk factors not capturedin the FRAX model (e.g., frailty, falls, vitamin D deficiency, increasedbone turnover, interval significant decline in bone density) and possibleunder- or over-estimation of fracture risk by FRAX. us Sarai Alan BERNAL DXA PROCEDURES Final Result * Colonoscopy (07/11/2019) Colonoscopy No interpretation , abstracted Anatomical Region Laterality Modality Other Historical Provider HEALTH MAINTENANCE Final Result * Hepatitis C Screening (05/17/2013) Hepatitis C Screening Abstracted Historical Provider HEALTH MAINTENANCE Final Result from Last 3 Months or Most Recently Relevant to Health Maintenance Insurance [place] [address] Advance Directives Documents on File Type Date Recorded Patient Rest Room Maid Expl anation Health Care Decision (hx) 01/28/2019 AD KAPOOR DIRECTIVE Health Care Decision (hx) 01/28/2019 AD KAPOOR DIRECTIVE Health Care Decision (hx) 01/28/2019 AD KAPOOR DIRECTIVE Health Care Decision (hx) 01/28/2019 AD KAPOOR DIRECTIVE Health Care Decision (hx) 01/28/2019 AD KAPOOR DIRECTIVE Health Care Decision (hx) 01/28/2019 AD KAPOOR DIRECTIVE Health Care Decision (hx) 01/28/2019 AD KAPOOR DIRECTIVE Health Care Decision (hx) 01/28/2019 AD KAPOOR DIRECTIVE Health Care Decision (hx) 01/26/2019 AD KAPOOR DIRECTIVE Health Care Decision (hx) 01/26/2019 AD KAPOOR DIRECTIVE Health Care Decision (hx) 01/26/2019 AD KAPOOR DIRECTIVE Health Care Decision (hx) 01/26/2019 AD KAPOOR DIRECTIVE Health Care Decision (hx) 01/26/2019 AD KAPOOR DIRECTIVE Health Care Decision (hx) 01/26/2019 AD KAPOOR DIRECTIVE Health Care Decision (hx) 01/26/2019 AD KAPOOR DIRECTIVE Health Care Decision (hx) 01/26/2019 AD KAPOOR DIRECTIVE Care Teams Medical Transcription Supervisor Relationship Specialty Start Date End Date Petros Wren PA [address] [place] [address] PCP - General Internal Medicine 09/25/24
--- OUTSIDE RECORDS SUMMARY | 2025-06-01 11:09 | XMS_ITS | Clinical Summary ---
Author Organization [facility] Address [address] [place] [address] Care Team Providers Care Channel Turner Name Role Phone Colin Leiva MD Primary Care Provider [phone] Social History Tobacco Use Types Packs/Day Years Used Date Smoking Tobacco: Never Assessed Sex and Gender Information Value Date Recorded Sex Assigned at Not on file Gender Identity Not on file Sexual Orientation Not on file Job Start Date Occupation Industry Not on file Not on file Not on file Plan of Treatment Health Maintenance Due Date Last Done Comments Hepatitis C Screening 1957 COVID-19 Vaccine (#1) 03/04/1958 Depression Screening 1969 Preventative Health Evaluation 1975 DTap / Tdap / Td (1 - Tdap) 1976 Colon Cancer Screening (Colonoscopy) 2002 Breast Cancer Screening (Mammogram) 2007 Shingrix-Zoster Vaccine (1 of 2) 2007 Fall Risk Assessment 2022 Osteoporosis Screening (DEXA Scan) 2022 Pneumococcal Vaccine (1 of 1 - PCV) 2022 Influenza Vaccine (#1) 2025 RSV Adult > 60+ Yrs or Pregn ant (1 - 1-dose 75+ series) 2032 Hepatitis B Vaccines Aged Out No long er eligible based on patient's age to complete this topic RSV Ped < 20 months Aged Out No longe r eligible based on patient's age to complete this topic Care Teams Channel Turner Relationship Specialty Start Date End Date Colin Leiva MD PCP - General Nanotechnology Technician 10/07/18
== END 2025-06-01 12:08 | disposition home or self-care (01) ==
LOC: HO.HNS 11:00
PROVIDERS: PCP Physician Assistant Medical; Visit Provider Neurological Surgery
DX: M54.16 Radiculopathy, lumbar region (principal); M48.061 Spinal stenosis, lumbar region without neurogenic claudication
CPT/HCPCS: 99204

== ENCOUNTER → 2025-06-01 10:59 | Outpatient (BNVA) | payer MEDICARE, SELFPAY | PROVIDERS: PCP Physician Assistant Medical; Visit Provider Neurological Surgery | DX: M54.16 Radiculopathy, lumbar region (principal); M48.061 Spinal stenosis, lumbar region without neurogenic claudication | CPT/HCPCS: 99202 ==

== ENCOUNTER 2025-06-25 11:52 | Outpatient (AMB) | payer MEDICARE, SELFPAY ==
--- OUTSIDE RECORDS SUMMARY | 2025-06-25 13:09 | XMS_ITS | Encounter Summary ---
Author Organization [facility] Address [address] [place] [address] Care Team Providers Care Furnace Installer Helper Name Role Phone Petros Wren Primary Care Provider [phone] Reason for Visit * Reason Onset Date Comments Pre-op Visit 06/01/2025 Encounter Details Date Type Department Care Team (Late st Contact Info) Description 06/01/2025 Telephone Adult Medicine [facility] [address] [place] [phone] Petros Wren PA [address] [place] [address] Pre-op Visit Social History Tobacco Use Types [...] for your loved ones. For example, child protection specialist or elderly care for an older [...] Dr.Fredrick Donovan Office phone number of surgeon: [phone] Fax # for surgeons office: [phone] (Required) Where is surgery being performed? [facility] Diagnosis/problem for surgery: foraminotomy Is an EKG required for the pre-op workup? yes PCP: MELVI Gunn Did you verify that the insurance below is correct? yes Patients insurance: Payor: [employer] MEDICARE / Plan: [employer] MEDICARE ADVANTAGE / Product Type: *No Product type* / documented in this encounter Plan of Treatment Upcoming Encounters Date Type Department Care Team (Late st Contact Info) Description 06/27/2025 10:00 AM EDT Consult Adult Medicine [address] [phone] Petros Wren PA [address] [place] [address] 10/01/2025 10:30 AM EST Office Visit Adult Medicine [address] [phone] Petros Wren PA [address] [place] [address] 02/20/2026 10:40 AM EDT Appointment Radiology Department - [address] [phone] 06/07/2026 10:00 AM EDT Office Visit Pulmonolgy - [place] 175 [facility] [address] [place] [phone] Perla Cordero MD 175 [facility] [place] [facility] [address] [place] [address] documented as of this encounter Visit Diagnoses Not on filedocumented in this encounter Additional Health Concerns Assessment Noted Time PHQ-9 Depression Total Score: 0 03/26/20 10:35 AM EDT documented as of this encounter Care Teams Furnace Installer Helper Relationship Specialty Start Date End Date Petros Wren PA [address] [place] [address] PCP - General Internal Medicine 09/25/24 documented as of this encounter
--- OUTSIDE RECORDS SUMMARY | 2025-06-25 13:10 | XMS_ITS | Clinical Summary ---
Author Organization [facility] Address [address] [place] [address] Care Team Providers Care Rn X Ray Name Role Phone Colin Leiva MD Primary Care Provider [phone] Social History Tobacco Use Types Packs/Day Years [...] age to complete this topic Care Teams Rn X Ray Relationship Specialty Start Date End Date Colin Leiva MD PCP - General Ship Erector 10/07/18
--- OUTSIDE RECORDS SUMMARY | 2025-06-25 13:10 | XMS_ITS | Patient Health Record ---
Author Organization [facility] [place] Address [address] [place] [phone] Care Team Providers Care Scarf And Anneal Operator Name Role Phone Colin Leiva MD Primary Care Provider Ricardo Lo Unavailable [phone] Allergies Allergen (clinical drug ingredient) Drug/Non Drug [...] Treatment Pending Test Test Name Order Date [id number] TENDON SHEATH/LIGAMENT 1 12/16/2010 Insurance Providers Payer Name Payer Address Payer Phone Subscriber Number Group Number Insured Name Patient Relationship to Insured Coverage Start Date Coverage End Date [facility] [address] [place] [address] [phone] [id number] Martha Styles Self - patient is the insured Medical (General) History Medical History History ICD Code mumps measles hypertension headaches/migraines back, hip, knee pain asthma Surgical History Surgery Date(Month/Year) cholecystectomy tubal ligation topaz left foot
== END 2025-06-25 11:53 | disposition home or self-care (01) ==
LOC: HO.HMGAL 11:52
PROVIDERS: PCP Physician Assistant Medical; Visit Provider Registered Nurse Emergency
DX: J30.89 Other allergic rhinitis (principal)
CPT/HCPCS: 95117; 95165

== ENCOUNTER 2025-07-12 06:54 | Day surgery (SDC) | payer MEDICARE, SELFPAY ==
--- OUTSIDE RECORDS SUMMARY | 2025-06-05 12:18 | XMS_ITS | Encounter Summary ---
Author Organization [facility] Address [address] [place] [address] Care Team Providers Care Sales Program Coordinator Name Role Phone Petros Wren Primary Care Provider [phone] Reason for Visit * Reason Onset Date Comments Pre-op Visit 06/01/2025 Encounter Details Date Type Department Care Team (Late st Contact Info) Description 06/01/2025 Telephone Adult Medicine [facility] [address] [place] [phone] Petros Wren PA [address] [place] [address] Pre-op Visit Social History Tobacco Use Types Packs/Day Years Used Date Smoking Tobacco: Never Smokeless Tobacco: Never Alcohol Use Standard Drinks/Week Comments No 0 [...] care for your loved ones. For example, early childhood specialist or elderly care for an older adult? [...] Orientation Straight 12/05/2024 6: 30 AM EST documented as of this encounter Progress Notes * Avni Monk - 06/01/2025 2:37 PM EDT Patient requires Preoperative Assessment: Date of surgery: July 12 2025 What surgery is patient having (gall bladder, cataract, appendix, etc...)?: Left l5 foraminotomy Surgeon's name: Dr.Fredrick Donovan Office phone number of surgeon: [phone] Fax # for surgeons office: [phone] (Required) Where is surgery being performed? [facility] Diagnosis/problem for surgery: foraminotomy Is an EKG required for the pre-op workup? yes PCP: MELVI Gunn Did you verify that the insurance below is correct? yes Patients insurance: Payor: [employer] MEDICARE / Plan: [facility] MEDICARE ADVANTAGE / Product Type: *No Product type* / documented in this encounter Plan of Treatment Upcoming Encounters Date Type Department Care Team (Late st Contact Info) Description 06/08/2025 10:45 AM EDT Office Visit Pulmonolgy - [place] [address] [facility] [address] [place] [phone] Perla Cordero MD [address] [address] 06/27/2025 10:00 AM EDT Consult Adult Medicine [address] [phone] Petros Wren PA [address] [place] [address] 10/01/2025 10:30 AM EST Office Visit Adult Medicine [address] [phone] Petros Wren PA [address] [place] [address] 02/20/2026 10:40 AM EDT Appointment Radiology Department - [address] [phone] documented as of this encounter Visit Diagnoses Not on filedocumented in this encounter Additional Health Concerns Assessment Noted Time PHQ-9 Depression Total Score: 0 03/26/20 10:35 AM EDT documented as of this encounter Care Teams Sales Program Coordinator Relationship Specialty Start Date End Date Petros Wren PA [address] [place] [address] PCP - General Internal Medicine 09/25/24 documented as of this encounter
--- OUTSIDE RECORDS SUMMARY | 2025-06-05 12:18 | XMS_ITS | Clinical Summary ---
Author Organization [facility] Address [address] [place] [address] Care Team Providers Care Signal Engineer Name Role Phone Colin Leiva MD Primary Care Provider [phone] Social History Tobacco Use Types Packs/Day Years [...] age to complete this topic Care Teams Signal Engineer Relationship Specialty Start Date End Date Colin Leiva MD PCP - General Instructor Bridge 10/07/18
--- OUTSIDE RECORDS SUMMARY | 2025-06-05 12:18 | XMS_ITS | Patient Health Record ---
[facility] Address [address] [place] [phone] Care Team Providers Care Offset Lithographic Press Setter Name Role Phone Colin Leiva MD Primary Care Provider Ricardo Lo Unavailable [phone] Allergies Allergen (clinical drug ingredient) Drug/Non Drug [...] Treatment Pending Test Test Name Order Date [id number] TENDON SHEATH/LIGAMENT 1 12/16/2010 Insurance Providers Payer Name Payer Address Payer Phone Subscriber Number Group Number Insured Name Patient Relationship to Insured Coverage Start Date Coverage End Date [facility] [address] [place] [address] [phone] [id number] Martha Styles Self - patient is the insured Medical (General) History Medical History History ICD Code mumps measles hypertension headaches/migraines back, hip, knee pain asthma Surgical History Surgery Date(Month/Year) cholecystectomy tubal ligation topaz left foot
[2025-07-05 12:18] VITALS: BP 165/79; PULSE 71; RESP 20; O2SAT 96; BMI 42.7
[2025-07-05 13:45] LABS: Hematocrit 35.3 % (37.0-47.0); Hemoglobin 10.8 g/dl (12.0-16.0); Mean Corpuscular HGB Conc 30.6 g/dl (31.0-35.0); Mean Corpuscular Hemoglobin 23.8 pg (27.0-33.0); Mean Corpuscular Volume 77.9 fL (80.0-98.0); NRBC Abs Auto 0.000 X10*3/uL (0.0-0.012); NRBC Pct Auto 0.0 /100WBC (0.0-0.2); Platelet Count 410 X10*3/uL (160-400); Red Blood Count 4.53 X10*6/uL (4.20-5.50); White Blood Count 7.7 X10*3/uL (4.8-10.8)
[2025-07-12] VITALS (7 sets, daily range): BP systolic 135–170; BP diastolic 63–92; PULSE 66–85; RESP 15–20; TEMP 36.2–36.4; O2SAT 94–100; BMI 42.6
--- NOTE | ~2025-07-12 | FL_ITS ---
EXAMINATION: XR FLUOROSCOPY WITH IMAGES CLINICAL INFORMATION: Left L5 foraminotomy. COMPARISON: None available. TECHNIQUE: Fluoroscopy provided to: Dr. Elizabeth Fluoroscopy time: 0.0 minutes DAP: 0.737 Gycm2 Images: 1 FINDINGS: Solitary spot image obtained during left L5 foraminotomy. Please refer to the full operative report for details. FL/FL guidance in OR IMPRESSION: Fluoroscopic guidance. Electronically signed by: Duane Rivera MD 07/12/2025 10:21 AM EDT
--- NOTE | 2025-07-12 07:19 | P.HPSUR_ITS ---
Pre-Procedural Eval Section A - 24 Hr Update-Section A only Date of Service: 07/12/25 The patient is an INPATIENT: No Changes since office visit: No Cold of Flu in the past 2 weeks, No New Medical Problems, No Changes in Medication and No Patient answered all questions The patient has been examined within 24 hours of the surgical procedure. The History & Physical has been completed within 30 days and I have reviewed it.: No Section B - Complete if H&P > 30 days Chief Complaint: Spinal stenosis, lumbar region without neurogenic Allergies: Allergies Allergy/AdvReac Type Severity Reaction Status Date / Time sulfamethoxazole (From Allergy Intermediate HIVES Verified 06/01/25 11:07 Bactrim) trimethoprim (From Bactrim) Allergy Intermediate HIVES Verified 06/01/25 11:07 COMBID Allergy Intermediate eye Uncoded 07/05/25 12:04 muscles affected Review of Systems Sugical H&P ROS: Negative: Constitution, Cardiovascular, Respiratory, Neurological, Psychiatric, Hem-Onc, Allergic/Immunologic, Gastrointestinal, Genitourinary, Musculoskeletal, Integumentary, Endocrine and Eyes/Ears/Nose/T hroat Exam Surgical H&P Exam: Normal: HEENT, Normal: Heart, Normal: Lungs, Normal: Extremities, Normal: Abdomen, Normal: Skin and Normal: Neurological (awake, alert,oriented x 3 ) Plan Diagnosis/Plan: Unchanged left L5 foraminotomy Time Spent With Patient Time: Total time managing care of this patient today _5___ minutes.
[2025-07-12] MEDS: Lactated Ringers 1,000 ML 100 ML IVCONT (07:31)
--- NOTE | 2025-07-12 08:06 | HO.ANESPROP2 ---
Documented by User: Patricia Hinson NP 07/06/25 13:49 HPI - Anesthesia Eval Consult details Narrative: 69yo F for Left L5 Foraminotomy Medically optimized per PCP Follows Kelin turner for PATRICIA (on CPAP) PMFSH Active Problems Active Problems: All Active Problems Neural foraminal stenosis of lumbar spine (Acute) Lumbar back pain with radiculopathy affecting left lower extremity (Acute) Coccydynia (Acute) Sacroiliac joint dysfunction of left side (Acute) Sacroiliac joint dysfunction of right side (Acute) Sacroiliitis (Acute) Chronic pain syndrome (Acute) Spondylosis (Acute) Postlaminectomy syndrome of lumbar region (Acute) Past Medical History Medical History Pre-diabetes Asthma PAC (premature atrial contraction) Hiatal hernia Arthritis Coccydynia Sacroiliac joint dysfunction of left side Sacroiliac joint dysfunction of right side Back pain Sleep apnea Arrhythmia GERD (gastroesophageal reflux disease) HTN (hypertension) Sacroiliitis Chronic pain syndrome Spondylosis Postlaminectomy syndrome of lumbar region Family History Family history of problems with anesthesia: No Surgical History Surgical History History of esophagogastroduodenoscopy (EGD) Hx of elbow surgery History of surgery Hx of cholecystectomy H/O colonoscopy History of back surgery Hx of foot surgery History of Problems with Anesthesia: No Social History Social History Are you a primary day care worker to a significant other at home: No Do you presently have visiting nurse or other home services: No Patient Tobacco Use Status: Never used Tobacco Use of substances other than those prescribed or required for medical reasons: No Have you been hit, kicked, punched, or otherwise hurt by someone within the past year? If so, by whom?: No Spiritual Healthcare Practices: no Restorationism Healthcare Practices: no Cultural Healthcare Practices: no Are you DNR?: No Advance Directives on File: No FDLMP: n/a Poor oral hygiene: No (temporary [id number] left) Meds Allergies Allergy/AdvReac Type Severity Reaction Status Date / Time sulfamethoxazole (From Allergy Intermediate HIVES Verified 07/12/25 07:35 Bactrim) trimethoprim (From Bactrim) Allergy Intermediate HIVES Verified 07/12/25 07:35 COMBID Allergy Intermediate eye Uncoded 07/05/25 12:04 muscles affected Home Medications ?Medication ?Instructions ?Recorded ?Confirmed ?Last Taken ?Type diclofenac sodium 1 % topical gel 1 ea topical DAILY 01/30/21 07/05/25 Unknown History duloxetine 60 mg capsule,delayed 60 mg PO QAM 01/30/21 07/05/25 07/11/21 06:30 History release lidocaine 5 % topical patch 1 patch topical DAILY 01/30/21 07/05/25 Unknown History losartan 50 mg tablet 100 mg PO QAM 01/30/21 07/05/25 Unknown History montelukast 10 mg tablet 10 mg PO BEDTIME allergy symptoms 01/30/21 07/05/25 Unknown History omeprazole 20 mg capsule,delayed 20 mg PO QAM 01/30/21 07/05/25 07/12/25 06:15 History release oxycodone-acetaminophen 10 mg-325 1 tab PO TID PRN Pain 01/30/21 07/05/25 07/11/21 08:30 History mg tablet Half 0630, Half 0830 fexofenadine 180 mg tablet 180 mg PO BEDTIME 05/08/21 07/05/25 Unknown History albuterol sulfate 90 mcg/actuation 2 puff inhalation Q4H PRN 07/04/25 07/05/25 Unknown History aerosol inhaler Shortness Of Breath Or Wheezing buprenorphine 20 mcg/hour weekly 1 patch topical QWEEK pain 07/04/25 07/05/25 Unknown History transdermal patch indapamide 2.5 mg tablet 2.5 mg PO QAM 07/04/25 07/05/25 Unknown History pregabalin 100 mg capsule 100 mg PO BID 07/04/25 07/05/25 Unknown History tizanidine 4 mg tablet 4 mg PO BEDTIME 07/04/25 07/05/25 Unknown History coenzyme Q10 30 mg capsule (Co 30 mg PO DAILY 07/05/25 07/05/25 Unknown History Q-10) magnesium oxide 400 mg PO DAILY 07/05/25 07/05/25 Unknown History multivitamin 1 tab PO DAILY 07/05/25 07/05/25 Unknown History vitamin B complex 1 tab PO DAILY 07/05/25 07/05/25 Unknown History Exam Height,Weight and Vital Signs: Height 5 ft 2 in Weight 106 kg Last Vital Signs Pulse 71 07/05/25 12:18 Resp 20 07/05/25 12:18 BP 165/79 H 07/05/25 12:18 Pulse Ox 96 07/05/25 12:18 O2 Del Method Room Air 07/05/25 12:18 Pertinent Lab Results Pertinent Lab Results: Laboratory Tests 07/05/25 12:58 WBC 7.7 RBC 4.53 Hgb 10.8 L Hct 35.3 L MCV 77.9 L MCH 23.8 L MCHC 30.6 L RDW 17.5 H Plt Count 410 H MPV 8.8 L Absolute Nucleated RBC 0.000 Nucleated RBC % (auto) 0.0 CMP from Kelin 06/27/25 WNL Narrative Narrative: EKG 06/2025 NSR @ 69 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) Assessment and Plan Assessment Anesthesia Assessment: Chart Reviewed Final Anesthetic Review Family History of Problems with Anesthesia: No History of Problems with Anesthesia: No Documented by User: Sarah Valdez DO 07/12/25 08:08 [facility] Past Medical History Medical History Pre-diabetes Asthma PAC (premature atrial contraction) Hiatal hernia Arthritis Coccydynia Sacroiliac joint dysfunction of left side Sacroiliac joint dysfunction of right side Back pain Sleep apnea Arrhythmia GERD (gastroesophageal reflux disease) HTN (hypertension) Sacroiliitis Chronic pain syndrome Spondylosis Postlaminectomy syndrome of lumbar region Family History Family history of problems with anesthesia: No Surgical History Surgical History History of esophagogastroduodenoscopy (EGD) Hx of elbow surgery History of surgery Hx of cholecystectomy H/O colonoscopy History of back surgery Hx of foot surgery History of Problems with Anesthesia: No Social History Social History Are you a primary day care worker to a significant other at home: No Do you presently have visiting nurse or other home services: No Patient Tobacco Use Status: Never used Tobacco Use of substances other than those prescribed or required for medical reasons: No Have you been hit, kicked, punched, or otherwise hurt by someone within the past year? If so, by whom?: No Spiritual Healthcare Practices: no Restorationism Healthcare Practices: no Cultural Healthcare Practices: no Are you DNR?: No Advance Directives on File: No FDLMP: n/a Poor oral hygiene: No (temporary [id number] left) Meds Allergies Allergy/AdvReac Type Severity Reaction Status Date / Time sulfamethoxazole (From Allergy Intermediate HIVES Verified 07/12/25 07:35 Bactrim) trimethoprim (From Bactrim) Allergy Intermediate HIVES Verified 07/12/25 07:35 COMBID Allergy Intermediate eye Uncoded 07/05/25 12:04 muscles affected Home Medications ?Medication ?Instructions ?Recorded ?Confirmed ?Last Taken ?Type diclofenac sodium 1 % topical gel 1 ea topical DAILY 01/30/21 07/05/25 Unknown History duloxetine 60 mg capsule,delayed 60 mg PO QAM 01/30/21 07/05/25 07/11/21 06:30 History release lidocaine 5 % topical patch 1 patch topical DAILY 01/30/21 07/05/25 Unknown History losartan 50 mg tablet 100 mg PO QAM 01/30/21 07/05/25 Unknown History montelukast 10 mg tablet 10 mg PO BEDTIME allergy symptoms 01/30/21 07/05/25 Unknown History omeprazole 20 mg capsule,delayed 20 mg PO QAM 01/30/21 07/05/25 07/12/25 06:15 History release oxycodone-acetaminophen 10 mg-325 1 tab PO TID PRN Pain 01/30/21 07/05/25 07/11/21 08:30 History mg tablet Half 0630, Half 0830 fexofenadine 180 mg tablet 180 mg PO BEDTIME 05/08/21 07/05/25 Unknown History albuterol sulfate 90 mcg/actuation 2 puff inhalation Q4H PRN 07/04/25 07/05/25 Unknown History aerosol inhaler Shortness Of Breath Or Wheezing buprenorphine 20 mcg/hour weekly 1 patch topical QWEEK pain 07/04/25 07/05/25 Unknown History transdermal patch indapamide 2.5 mg tablet 2.5 mg PO QAM 07/04/25 07/05/25 Unknown History pregabalin 100 mg capsule 100 mg PO BID 07/04/25 07/05/25 Unknown History tizanidine 4 mg tablet 4 mg PO BEDTIME 07/04/25 07/05/25 Unknown History coenzyme Q10 30 mg capsule (Co 30 mg PO DAILY 07/05/25 07/05/25 Unknown History Q-10) magnesium oxide 400 mg PO DAILY 07/05/25 07/05/25 Unknown History multivitamin 1 tab PO DAILY 07/05/25 07/05/25 Unknown History vitamin B complex 1 tab PO DAILY 07/05/25 07/05/25 Unknown History Exam Exam Date and Time: 07/12/25 0805 Height,Weight and Vital Signs: Height 5 ft 2 in Weight 106 kg Last Vital Signs Pulse 71 07/05/25 12:18 Resp 20 07/05/25 12:18 BP 165/79 H 07/05/25 12:18 Pulse Ox 96 07/05/25 12:18 O2 Del Method Room Air 07/05/25 12:18 Vital Signs Pulse Rate 71 07/05/25 12:18 Respiratory Rate 20 07/05/25 12:18 Blood Pressure 165/79 H 07/05/25 12:18 Pulse Oximetry 96 07/05/25 12:18 Oxygen Delivery Method Room Air 07/05/25 12:18 Temperature 97.2 F 07/12/25 07:33 Pulse Rate 77 07/12/25 07:33 Respiratory Rate 15 07/12/25 07:33 Blood Pressure 170/92 H 07/12/25 07:33 Pulse Oximetry 94 07/12/25 07:33 Oxygen Delivery Method Room Air 07/12/25 07:33 Airway Mallampati Class: I TM Dist: <=3cm Neck ROM: Limited Loose/Missing/Broken Teeth: Yes (bonded temporary #11-12) Heart: S1S2 Lungs: CTAB Assessment and Plan Assessment Anesthesia Assessment: Anesthesia Plan Discussed and Chart Reviewed Final Anesthetic Review Family History of Problems with Anesthesia: No History of Problems with Anesthesia: No NPO: Yes ASA Class: III Final Preanesthetic Review: No Changes in Pt Med Stat, Meds/Allgs Chart Reviewed, Consent Obtained/Reviewed and Anes Risks/Benef Reviewed Patient Risk: Intermediate Procedure Risk: Intermediate Anesthetic Plan Anesthetic Plan: GA and Agree w/ Assess. and Plan Disposition: Standard PACU
--- NOTE | 2025-07-12 09:21 | PM.DS ---
DS: Providers Provider Date of Service: 07/12/25 Date of discharge: 07/12/25 Primary care physician: MELVI Ly Admitting clinician: Juarez Elizabeth DS: Diagnosis Discharge Diagnosis (1) Lumbar back pain with radiculopathy affecting left lower extremity: Status: Acute DS: Summary Time Attestation Discharge Coordination Time (in mins): 4 Quality: Safe Use of Opioids Does Pt have an Active Cancer Diagnosis on the Problem List?: No Quality: Stroke Does the patient have a stroke diagnosis?: No Physical Exam Vital Signs: Vital Signs: Last Vital Signs Temp 97.2 F 07/12/25 07:33 Pulse 77 07/12/25 07:33 Resp 15 07/12/25 07:33 BP 170/92 H 07/12/25 07:33 Pulse Ox 94 07/12/25 07:33 O2 Del Method Room Air 07/12/25 07:33 BMI result Body Mass Index 42.6 Discharge Plan Discharge Patient Disposition: Home, Self-Care Referrals: Petros Wren PA [Primary Care Provider, Internal Medicine] - 1 Week Discharge Medications: Continued fexofenadine 180 mg Tablet 180 mg PO BEDTIME indapamide 2.5 mg tablet 2.5 mg PO QAM tizanidine 4 mg tablet 4 mg PO BEDTIME albuterol sulfate 90 mcg/actuation HFA aerosol inhaler 2 puff inhalation Q4H PRN (Reason: Shortness Of Breath Or Wheezing) pregabalin 100 mg capsule 100 mg PO BID Rx Instructions: takes 1 in am & 2 at bedtime buprenorphine 20 mcg/hour patch weekly 1 patch topical QWEEK vitamin B complex Tablet 1 tab PO DAILY coenzyme Q10 [Co Q-10] 30 mg Capsule 30 mg PO DAILY magnesium oxide 400 mg magnesium Tablet 400 mg PO DAILY multivitamin Tablet 1 tab PO DAILY duloxetine 60 mg capsule,delayed release(DR/EC) 60 mg PO QAM losartan 50 mg tablet 100 mg PO QAM montelukast 10 mg tablet 10 mg PO BEDTIME oxycodone-acetaminophen 10-325 mg tablet 1 tab PO TID PRN (Reason: Pain) diclofenac sodium 1 % gel 1 ea topical DAILY omeprazole 20 mg capsule,delayed release(DR/EC) 20 mg PO QAM lidocaine 5 % adhesive patch,medicated 1 patch topical DAILY Discharge Orders: Discharge Order (Routine); Ordered 07/12/25 Ordered By: Petros Warren Diet: Advance to usual diet Activity on Discharge: As tolerated Activity Restrictions/Additional Instructions: After your spinal surgery we ask you to observe the following restrictions/guidelines: Activity: It is normal to feel some discomfort as you increase your activity, but that will improve with time. We ask you avoid heavy lifting or acitivities that cause pain. As a general rule, 8lbs is a safe limit for lifting right after surgery. Walk as much as you feel comfortable but not to exhaustion. You will feel extra tired the first few days after surgery. Stay well hydrated. It is OK to walk up and down stairs You may return to driving when you are off narcotics (such as vicodin, oxycodone, dilaudid, etc), and you are back to normal functional capacity. If you have any concerns please check with office before driving. Return to work is specific to each patient and each surgery, so please speak with your doctor/PA at first follow up. Please bring paperwork such as FMLA at that time if you need it filled out. Medications: For optimum pain control, it is best to start with a combination of 500 mg of Tylenol every 4 hours with 600 mg of Motrin every 8 hours, and use narcotics as needed in between for breakthrough pain. We will give you a short supply of narcotics after surgery (usually one weeks worth). If you need more please call the office but do not use more than prescribed. You will need to give our office 48 hours notice if you need narcotics refilled and we do not fill narcotics on weekends or evenings. If you are on a narcotic, it is a good idea to take a stool softener such as colace or senna to avoid constipation If you take blood thinner such as aspirin, Plavix, Coumadin, Effient, Eliquis etc for conditions such as Afib, DVT, Pulmonary embolus, coronary disease, stents etc please speak with your surgeon about specific details as to when you can resume these medications. Follow up: Please call the office, , after surgery to arrange a 3 week follow up for wound check. Wound Care: You may remove your dressing on the first day after surgery. ?You may ?leave open to air. Please do not remove the steri strips underneath. they will fall off on their own in one week. IT IS NORMAL FOR THE WOUND TO OOZE OR BE BLOODY FOR A FEW DAYS AFTER SURGERY. ?IF THIS HAPPENS JUST PLACE NEW DRESSING OVER IT TO AVOID STAINING CLOTHES. You may shower on post op day # 1 We ask that you do not let the water soak the wound. If it does get wet, just towel dry lightly. Please do not scrub your incision or place any type of chemical/ointment on the wound. No tub baths, pools or jacuzzis for one month. If you have any leaking or redness from your wound, or fevers, please call office Print Language: Kyrgyz
--- NOTE | 2025-07-12 10:13 | W.PM.OPN ---
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 I have explained the nature, purpose and benefits of the operation. I have discussed the risks and benefit of the operation including possible complications or adverse events with patient/family. Alternative(s) were discussed with the patient with their relative benefits and risks as well as the consequences of not accepting the operation were included in obtaining consent. Surgeon: YENI WOLFF MD, PHD Procedure Assisted By: ray Goetz Description of Procedure This patient is suffering from a left L5 radiculopathy due to neuroforaminal stenosis The patient was offered a decompression of the nervous structures. The procedure complications were explained. The patient was consented. The patient was brought to the operating room and endotracheally intubated. The patient was turned in prone position on the Oli frame. Prep and drape was done followed by timeout. Physician assistant elementary teacher provided access. A mid lumbar incision was made followed by release of the paravertebral muscle on the left side to expose the L5 lamina and facet joint. An intraoperative x-ray was obtained to confirm the correct level. The microscope was brought in. I took over the procedure. The high-speed drill was used to do a L5 laminotomy. #2 Kerrison was used to further remove the lamina towards the L5 foramen. With a nerve hook the medial wall of the L5 pedicle was palpated as well as the beginning of the L5 foramen. The facet joint was partially drilled down after which with a #2 Kerrison a foraminotomy was done. Finally a foraminotomy Kerrison was used to complete the foraminotomy. A long nerve hook could be easily passed lateral and dorsally from the nerve root, a sign of relief of the neuroforaminal stenosis and decompression of the nerve root . The microscope was removed. Hemostasis was done. Incision was closed in 2 layers. Steri-Strips were used to approximate incision. An OpSite with Tegaderm was used to cover the incision. All sponge needle counts were correct. Patient was extubated and transported in stable is to recovery room. Anesthesia: General Estimated Blood Loss (ml): Minimal Duration of Surgery: Under 60 Minutes Postoperative Plan: Discharge to home
== END 2025-07-12 12:01 | disposition home or self-care (01) ==
PROVIDERS: Nurse Practitioner; PCP Physician Assistant Medical; Visit Provider Neurological Surgery
PROC: (CPT 63030; principal; 2025-07-12 09:30)
DX: M48.061 Spinal stenosis, lumbar region without neurogenic claudication (principal); M54.16 Radiculopathy, lumbar region; M96.1 Postlaminectomy syndrome, not elsewhere classified; G89.4 Chronic pain syndrome; M79.605 Pain in left leg; R26.2 Difficulty in walking, not elsewhere classified; M53.3 Sacrococcygeal disorders, not elsewhere classified; I10 Essential (primary) hypertension; R73.03 Prediabetes; G47.33 Obstructive sleep apnea (adult) (pediatric); J45.909 Unspecified asthma, uncomplicated; Z79.899 Other long term (current) drug therapy; Z79.891 Long term (current) use of opiate analgesic; Z99.89 Dependence on other enabling machines and devices; Z98.1 Arthrodesis status; Z88.2 Allergy status to sulfonamides; Z98.890 Other specified postprocedural states
CPT/HCPCS: 63030; 36415; 85027; J0131; J0690; J1100; J2003; J2250; J2371; J2405; J2704; J3010

== ENCOUNTER → 2025-07-12 06:54 | Outpatient (BNV) | payer MEDICARE, SELFPAY | PROVIDERS: PCP Physician Assistant Medical; Visit Provider Neurological Surgery | DX: M54.16 Radiculopathy, lumbar region (principal); M48.062 Spinal stenosis, lumbar region with neurogenic claudication | CPT/HCPCS: 63047; 99499 ==

== ENCOUNTER 2025-07-18 10:50 | Outpatient (AMB) | payer MEDICARE, SELFPAY ==
--- OUTSIDE RECORDS SUMMARY | 2025-07-18 13:31 | XMS_ITS | Clinical Summary ---
Author Organization [facility] Address [address] [place] [address] Care Team Providers Care Vice President [employer] Name Role Phone Colin Leiva MD Primary Care Provider Social History Tobacco Use Types Packs/Day Years [...] age to complete this topic Care Teams Vice President [employer] Relationship Specialty Start Date End Date Colin Leiva MD PCP - General Boom Cat Operator 10/07/18
--- OUTSIDE RECORDS SUMMARY | 2025-07-18 13:32 | XMS_ITS | Patient Health Record ---
[facility] [place] Address [address] [place] [id number] Care Team Providers Care Injection Molding Machine Offbearer Name Role Phone Colin Leiva MD Primary Care Provider Ricardo Lo Unavailable [phone] Allergies Allergen (clinical drug ingredient) Drug/Non Drug [...] Status W/U Status Risk Notes Problem Plantar fasciitis ([id number]) Plantar Fasciitis (728.71) Active confirmed Plan Of Treatment Pending Test Test Name Order Date [id number] TENDON SHEATH/LIGAMENT 1 12/16/2010 Insurance Providers Payer Name Payer Address Payer Phone Subscriber Number Group Number Insured Name Patient Relationship to Insured Coverage Start Date Coverage End Date [facility] [address] [place] [address] [phone] [id number] Martha Styles Self - patient is the insured Medical (General) History Medical History History ICD Code mumps measles hypertension headaches/migraines back, hip, knee pain asthma Surgical History Surgery Date(Month/Year) cholecystectomy tubal ligation topaz left foot
== END 2025-07-18 10:52 | disposition home or self-care (01) ==
LOC: HO.HMGAL 10:50
PROVIDERS: PCP Physician Assistant Medical; Visit Provider Registered Nurse Emergency
DX: J30.89 Other allergic rhinitis (principal)
CPT/HCPCS: 95117; 95165

== ENCOUNTER 2025-08-01 10:57 | Outpatient (AMB) | payer MEDICARE, SELFPAY ==
--- OUTSIDE RECORDS SUMMARY | 2025-08-01 14:03 | XMS_ITS | Patient Health Record ---
[facility] Address [address] [place] [id number] Care Team Providers Care Animal Care Attendant Name Role Phone Colin Leiva MD Primary Care Provider Ricardo Lo Unavailable [phone] Allergies Allergen (clinical drug ingredient) Drug/Non Drug [...] W/U Status Risk Notes Problem Plantar fasciitis ([id number]) Plantar Fasciitis (728.71) Active confirmed Plan Of Treatment Pending Test Test Name Order Date [id number] TENDON SHEATH/LIGAMENT 1 12/16/2010 Insurance Providers Payer Name Payer Address Payer Phone Subscriber Number Group Number Insured Name Patient Relationship to Insured Coverage Start Date Coverage End Date [facility] [address] [place] [address] [phone] [id number] Martha Styles Self - patient is the insured Medical (General) History Medical History History ICD Code mumps measles hypertension headaches/migraines back, hip, knee pain asthma Surgical History Surgery Date(Month/Year) cholecystectomy tubal ligation topaz left foot
--- OUTSIDE RECORDS SUMMARY | 2025-08-01 14:03 | XMS_ITS | Clinical Summary ---
Author Organization [facility] Address [address] [place] [address] Care Team Providers Care Tire Center Manager Name Role Phone Colin Leiva MD Primary [...] age to complete this topic Care Teams Tire Center Manager Relationship Specialty Start Date End Date Colin Leiva MD PCP - General Rotary Engine Assembler 10/07/18
--- OUTSIDE RECORDS SUMMARY | 2025-08-01 14:03 | XMS_ITS | Clinical Summary ---
Author Organization [facility] [address] [place] [address] [place] [phone] Phone Care Team Providers Care Broomcorn Sorter Name Role Phone Petros Wren Primary Care Provider [phone] Allergies Active Allergy Reactions Criticality Noted Date Comments Other Other 02/10/2006 Combid, Eyes rolled back in head Sulfa (Sulfonamide Antibiotics) Hives Medium 12/17/2006 RASH Sulfamethoxazole-Trimethop rim 06/08/2025 hives Medications MULTIVITAMIN ORAL Take by mouth 1 (one) time each day. With iron Active diclofenac (VOLTAREN) 1 % topical gel Apply 3 g topically 3 (three) times a day. 3 Active fexofenadine (ROXANE) 180 mg tablet Take 1 tablet (180 mg total) by mouth 1 (one) time each day. Active lidocaine (LIDODERM) 5 % patch Place 3 patches on the skin 1 (one) time each day. for 360 days. Apply for no more than 12 hours in any 24 hour period. 3 Active oxyCODONE-acetam inophen (PERCOCET) 10-325 mg per tablet Take 1 tablet by mouth every 8 (eight) hours if needed (Pain). 4 Active triamcinolone (Nasacort) 55 mcg nasal inhaler Administer 1 spray into affected nostril(s) 1 (one) time each day. 7 Active buprenorphine (BUTRANS) 20 mcg/hour Place 1 patch on the skin 1 (one) time per week. Active indapamide (LOZOL) 2.5 mg tablet Take 1 tablet (2.5 mg total) by mouth 1 (one) time each day in the morning. 90 tablet 3 4 Active montelukast (SINGULAIR) 10 mg tablet Take 1 tablet (10 mg total) by mouth 1 (one) time each day. 90 tablet 3 4 Active DULoxetine (CYMBALTA) [address] capsule Take 1 capsule (60 mg total) by mouth 1 (one) time each day. 90 capsule 3 4 Active coenzyme Q-10 30 mg capsule Take [...] mg total) 3 (three) times a day. 5 Active tiZANidine (ZANAFLEX) 4 mg tablet 5 Active tirzepatide (MOUNJARO) 2.5 mg/0.5 mL injection Inject 0.5 mL (2.5 mg total) under the skin every 7 (seven) days. 6 mL 3 5 Active losartan (COZAAR) 100 mg tablet TAKE 1 TABLET BY MOUTH DAILY 90 tablet 1 5 Active omeprazole (PriLOSEC) [address] capsule TAKE 1 CAPSULE BY MOUTH DAILY 90 capsule 1 5 Active albuterol HFA (PROAIR HFA ; PROVENTIL HFA ; VENTOLIN HFA) 90 mcg/actuation inhalerIndicatio ns:Mild persistent asthma, unspecified whether complicated Inhale 2 puffs by mouth every 6 (six) hours if needed for wheezing or shortness of breath. 1 each 5 06/08/20 26 Active Active Problems Problem Noted Date Diagnosed Date Plantar fasciitis 06/08/2025 Disorder of sacroiliac joint 06/08/2025 Localized primary osteoarthritis of left hand Primary osteoarthritis, right hand 01/05/2024 Type 2 diabetes mellitus (CMS/HCC V24, [facility] V 28) 12/14/2023 Hiatal hernia 02/02/2022 Chronic [...] Encounters Date Type Department Care Team Description 06/27/2025 11:00 AM EDT - 06/27/2025 11:59 PM EDT Hospital Encounter [address] [phone] Preoperative cardiovascular examination; Degeneration of intervertebral disc of lumbar region, unspecified whether pain present; Type 2 diabetes mellitus without complication, without long-term current use of insulin (CMS/HCC V24, CMS/HCC V28); Acute pain of left shoulder Discharge Disposition: Home or Self Care 06/27/2025 10:00 AM EDT Consult Adult Medicine [address] [phone] Petros Wren PA Preoperative cardiovascular examination (Primary Dx); Degeneration of intervertebral disc of lumbar region, unspecified whether pain present; Type 2 diabetes mellitus without complication, without long-term current use of insulin ([facility] V24, [facility] V28); Acute pain of left shoulder 06/08/2025 10:45 AM EDT Office Visit Pulmonology [facility] [address] [phone] Perla Cordero MD PATRICIA on CPAP (Primary Dx); Mild persistent asthma, unspecified whether complicated; Scoliosis, unspecified scoliosis type, unspecified spinal region 06/08/2025 Telephone Pulmonology [facility] [address] [phone] Alondra Carroll [place] 06/01/2025 Telephone Adult Medicine [address] [phone] Petros Wren PA 05/29/2025 8:47 AM EDT Anesthesia Event [facility] [address] [place] [phone] Lion Teran MD Gomes, Sheldon B, MD 05/29/2025 8:35 AM EDT - 05/29/2025 11:59 PM EDT Hospital Encounter [facility] X[facility] [address] [place] [phone] Pain Discharge Disposition: Home or Self Care 05/29/2025 7:37 AM EDT - 05/29/2025 11:59 PM EDT Hospital Encounter [facility] [address] [place] [phone] Nasir Monsalve DO Slanda, Summer, CRNA Radiculopathy, lumbar region Discharge Disposition: Home or Self Care 05/04/2025 Telephone Pulmonology [facility] [address] [phone] Perla Cordero MD from Last 3 Months Immunizations Name Administration [...] artery disease Brother 2 had a stent, [place] Coronary artery disease Father [place] @ 58 Stroke Maternal Grandmother Arthritis Mother [...] for your loved ones. For example, child support specialist or elderly care for an older [...] Sign Reading Time Taken Comments Blood Pressure 130/70 06/27/2025 11:38 AM EDT Pulse 73 06/27/2025 10:06 AM EDT Temperature 35.9 C (96.6 F) 06/27/2025 10:06 AM EDT Respiratory Rate 15 06/27/2025 10:06 AM EDT Oxygen Saturation 96% 06/27/2025 10:06 AM EDT Inhaled Oxygen Concentration - - Weight 104 kg (228 lb 9.6 oz) 06/27/2025 10:06 A M EDT Height 157.5 cm (5' 2 ) 06/27/2025 10:06 AM EDT Body Mass Index 41.81 06/27/2025 10:06 AM EDT Plan of Treatment Upcoming Encounters Date Type Department Care Team (Late st Contact Info) Description 10/01/2025 10:30 AM EST Office Visit Adult Medicine [address] [phone] Petros Wren PA [address] [place] [phone] 02/20/2026 10:40 AM EDT Appointment Radiology Department - [address] [phone] 06/07/2026 10:00 AM EDT Office Visit Pulmonology - [address] [place] [phone] Perla Cordero MD [address] [place] [address] Health Maintenance Due Date Last Done Comments RSV Immunization Adult Patients (1 - Risk 60-74 years 1-dose series) 2017 Medicare Annual Wellness Visit 10/17/2022 Diabetes: Annual Foot Exam 07/06/2025 07/06/2024 COVID-19 Vaccine ( season) 2025 12/08/2021, 07/06/2021, 06/08/2021 Influenza Vaccine (#1) 2025 , 08/05/2022, 09/09/2021, Additional history exists Diabetes: Blood Sugar Control Test (HGBA1C) 12/28/2025 06/27/2025, 03/26/2025, 10/26/2024, Additional history exists Diabetes: Annual Retina Eye Exam 03/21/2026 03/21/2025, 03/15/2024 Diabetes: Annual Urine Albumin-Creatinine Ratio (uACR) 03/26/2026 03/26/2025, 10/26/2024, 03/21/2024 Social Influencers of Health Screening 03/26/2026 03/26/2025 Falls Risk Assessment 05/29/2026 05/29/2025 Diabetes: Annual GFR (Glomerular Filtration Rate) 06/27/2026 06/27/2025, 03/26/2025, 10/26/2024, Additional history exists Hypertension/CHF/CAD Annual BMP Blood Test 06/27/2026 06/27/2025, 03/26/2025, 10/26/2024, Additional history exists Breast Cancer Screening 02/16/2027 02/17/20, 02/07/2024, 01/28/2023, Additional history exists Colorectal Cancer Screening: Colonoscopy 07/11/2029 07/11/2019 Cholesterol Screening (Lipid Panel) 06/27/2030 06/27/2025, 03/26/2025, 10/26/2024, Additional history exists DTaP,Tdap,and Td Vaccines (3 [...] Procedure Name Priority Date/Time Associated Diagnosis Comments EXTERNAL XRAY REPORT 07/12/2025 EXTERNAL XRAY REPORT 07/12/2025 ECG 12-LEAD TRACING ONLY Routine 06/27/2025 11:40 AM EDT Preoperative cardiovascular examination Degeneration of intervertebral disc of lumbar region, unspecified whether pain present Type 2 diabetes mellitus without complication, without long-term current use of insulin ([facility] V24, [facility] V28) XR SHOULDER 2+ VIEWS LEFT Routine 06/27/2025 11:14 AM EDT Preoperative cardiovascular examination Degeneration of intervertebral disc of lumbar region, unspecified whether pain present Type 2 diabetes mellitus without complication, without long-term current use of insulin ([facility] V24, [facility] V28) Acute pain of left shoulder LIPID PANEL WITH REFLEX TO DIRECT LDL Routine 06/27/2025 10:55 AM EDT Preoperative cardiovascular examination Degeneration of intervertebral disc of lumbar region, unspecified whether pain present Type 2 diabetes mellitus without complication, without long-term current use of insulin ([facility] V24, [facility] V28) COMPREHENSIVE METABOLIC PANEL Routine 06/27/2025 10:55 AM EDT Preoperative cardiovascular examination Degeneration of intervertebral disc of lumbar region, unspecified whether pain present Type 2 diabetes mellitus without complication, without long-term current use of insulin ([facility] V24, [facility] V28) HEMOGLOBIN A1C Routine 06/27/2025 10:55 AM EDT Preoperative cardiovascular examination Degeneration of intervertebral disc of lumbar region, unspecified whether pain present Type 2 diabetes mellitus without complication, without long-term current use of insulin ([facility] V24, [facility] V28) MICROALBUMIN CREATININE URINE RATIO Routine 03/26/2025 11:15 AM EDT Type 2 diabetes mellitus without complication, without long-term current use of insulin ([facility] V24, [facility] V28) Obstructive sleep apnea Essential hypertension, benign [...] Recently Relevant to Health Maintenance Results * External Xray Report (07/12/2025) Only the most recent of2 resultswithin the time period is included. Anatomical Region Laterality Modality Radiographic Barbara ging Provider [facility] IMG XR PROCEDURES Final Result * ECG 12 lead Tracing Only (06/27/2025 11:40 AM EDT) Petros OGDEN ECG ORDERABLES Final Res ult * XR Shoulder 2+ Views Left (06/27/2025 11:14 AM EDT) Anatomical Region Laterality Modality Upper Extremities, Shoulder Left Radi ographic Imaging 06/27/2025 11:4 0 AM EDT Narrative 06/27/2025 11:41 AM EDT Left shoulder, 4 views. History pain. There are degenerative changes in the AC joint and glenohumeral joint. There is coarse calcification adjacent to the greater tuberosity. No evidence of fractures or dislocations. CONCLUSIONS: Degenerative changes. Calcific tendinitis/bursitis. -------- FINAL REPORT -------- Dictated By: Irma Knowles Dictated Date: 06/27/2025 11:40 ET Assigned Physician: Irma Knowles Reviewed and Electronically Signed By: Irma Knowles Signed Date: 06/27/2025 11:41 ET Workstation ID: [id number] Transcribed By: Self Edit Transcribed Date: 06/27/2025 11:40 ET Procedure Note Irma Knowles MD - 06/27/2025 Left shoulder, 4 views. History pain. There are degenerative changes in the AC joint and glenohumeral joint.There is coarse calcification adjacent to the greater tuberosity. Noevidence of fractures or dislocations. CONCLUSIONS: Degenerative changes. Calcific tendinitis/bursitis. -------- FINAL REPORT -------- Dictated By: Irma Knowles Dictated Date: 06/27/2025 11:40 ET Assigned Physician: Irma Knowles Reviewed and Electronically Signed By: Irma Knowles Signed Date: 06/27/2025 11:41 ET Workstation ID: [id number] Transcribed By: Self Edit Transcribed Date: 06/27/2025 11:40 ET Petros OGDEN IMG XR PROCEDURES Final R esult * (ABNORMAL) Lipid panel with reflex to direct LDL (06/27/2025 10:55 AM EDT) Cholesterol 201(H) 0 - 200 mg/dL LAB CHEMISTRY METHOD 06/27/2025 4:57 PM EDT [facility] Triglycerides 109 0 - 150 mg/dL LAB CHEMISTRY METHOD 06/27/2025 4:57 PM EDT [facility] HDL 97 >=40 mg/dL LAB CHEMISTRY METHOD 06/27/2025 4:57 PM EDT [facility] LDL Calculated 82 0 - 100 mg/dL LAB CHEMISTRY METHOD 06/27/2025 4:57 PM EDT [facility] Comment:Estimated LDL Calcul ated using equation: Total cholesterol - HDL cholesterol - (Triglycerides/5) VLDL Cholesterol Ramesh 21.8 mg/dL LAB CHEMISTRY METHOD 06/27/2025 4:57 PM EDT [facility] Non HDL Chol. (LDL+VLDL) 104 <145 mg/dL LAB CHEMISTRY METHOD 06/27/2025 4:57 PM EDT [facility] Chol/HDL Ratio 2.1 0.0 - 4.4 LAB CHEMISTRY METHOD 06/27/2025 4:57 PM EDT [facility] Blood Venous blood specimen / Unknown Venipuncture / Unknown 06/27/2025 10:55 AM EDT 06/27/2025 10:55 AM EDT Petros OGDEN LAB BLOOD ORDERABLES Brissa l Result Performing Organization Address City/[facility]/ZIP Co de Phone Number [facility] [address] [place] [address], * (ABNORMAL) Hemoglobin A1c (06/27/2025 10:55 AM EDT) [facility] Hemoglobin A1C 6.6(H) <6.5 % LAB CHEMISTRY METHOD 06/27/2025 1:04 PM EDT [facility] Mean Bld Glu Estim. 143 mg/dL LAB CHEMISTRY METHOD 06/27/2025 1:04 PM EDT [facility] Blood Venous blood specimen / Unknown Venipuncture / Unknown 06/27/2025 10:55 AM EDT 06/27/2025 10:55 AM EDT Petros OGDEN LAB BLOOD ORDERABLES Brissa l Result Performing Organization Address [facility]/ZIP Co de Phone Number [facility] [address] [place] [address], * (ABNORMAL) Comprehensive metabolic panel (06/27/2025 10:55 AM EDT) [facility] Sodium 138 133 - 145 mmol/L LAB CHEMISTRY METHOD 06/27/2025 4:54 PM EDT [facility] Potassium 4.6 3.5 - 5.5 mmol/L LAB CHEMISTRY METHOD 06/27/2025 4:54 PM EDT [facility] Chloride 100 96 - 110 mmol/L LAB CHEMISTRY METHOD 06/27/2025 4:54 PM EDT [facility] CO2 33(H) 21 - 32 mmol/L LAB CHEMISTRY METHOD 06/27/2025 4:54 PM EDT [facility] Anion Gap 5 3 - 11 LAB CHEMISTRY METHOD 06/27/2025 4:54 PM EDT [facility] Glucose 82 70 - 100 mg/dL LAB CHEMISTRY METHOD 06/27/2025 4:54 PM [facility] BUN 14 5 - 25 mg/dL LAB CHEMISTRY METHOD 06/27/2025 4:54 PM [facility] Creatinine 0.68 0.50 - 1.10 mg/dL LAB CHEMISTRY METHOD 06/27/2025 4:54 PM [facility] eGFR 96 >=60 mL/min/1. 73m2 LAB CHEMISTRY METHOD 06/27/2025 4:54 PM [facility] Comment:Calculation based on the Chronic Kidney Disease Epidemiology Collaboration (CKD-EPI) equation refit without adjustment for race. BUN/Creatinine Ratio 20.6 LAB CHEMISTRY METHOD 06/27/2025 4:54 PM [facility] Calcium 9.2 8.5 - 10.5 mg/dL LAB CHEMISTRY METHOD 06/27/2025 4:54 PM [facility] AST (SGOT) 16 10 - 42 unit/L LAB CHEMISTRY METHOD 06/27/2025 4:54 PM [facility] ALT (SGPT) 31 10 - 60 unit/L LAB CHEMISTRY METHOD 06/27/2025 4:54 PM [facility] Alkaline Phosphatase 150(H) 42 - 121 unit/L LAB CHEMISTRY METHOD 06/27/2025 4:54 PM [facility] Total Protein 7.1 6.0 - 8.0 g/dL LAB CHEMISTRY METHOD 06/27/2025 4:54 PM [facility] Albumin 3.7 3.2 - 5.0 g/dL LAB CHEMISTRY METHOD 06/27/2025 4:54 PM [facility] Total Bilirubin 0.3 0.0 - 1.4 mg/dL LAB CHEMISTRY METHOD 06/27/2025 4:54 PM [facility] Blood Venous blood specimen / Unknown Venipuncture / Unknown 06/27/2025 10:55 AM EDT 06/27/2025 10:55 AM EDT Petros OGDEN LAB BLOOD ORDERABLES Brissa l Result [facility] [address] [place] [address], [place] [phone] * (ABNORMAL) Microalbumin creatinine urine ratio (03/26/2025 11:15 AM EDT) Creatinine, Urine 16.0 mg/dL LAB CHEMISTRY METHOD 03/26/2025 2:51 PM EDT [facility] Microalb, Ur 5.0 0.0 - 29.0 mg/L LAB CHEMISTRY METHOD 03/26/2025 2:51 PM EDT [facility] Microalb/Creat Ratio 31(H) <30 mg/g creat LAB CHEMISTRY METHOD 03/26/2025 2:51 PM EDT [facility] Urine Urine specimen obtained by clean catch procedure / Unknown Non-blood Collection / Unknown 03/26/2025 11:15 AM EDT 03/26/2025 11:15 AM EDT Petros OGDEN LAB URINE ORDERABLES Brissa l Result Performing Organization Address City/[facility]/ZIP Co de Phone Number [facility] [address] [place] [address], [place] [phone] * MG Mammo Digital Screening w Akhil bilat (02/16/2025 10:24 AM EDT) Anatomical Region Laterality Modality Breast Bilateral Mammography 02/16/2025 2:20 PM EDT Impressions 02/16/2025 2:25 PM EDT Benign. BI-RADS CATEGORY: 1 - NEGATIVE RECOMMENDATION: Screening bilateral mammogram is recommended in 1 year. Mammo Location: [facility], [address] [place] [address], [id number], . -------- FINAL REPORT -------- Dictated By: Aline Pro Dictated Date: 02/16/2025 14:20 ET Assigned Physician: Aline Pro Reviewed and Electronically Signed By: Aline Pro Signed Date: 02/16/2025 14:25 ET Workstation ID: [id number] Transcribed By: Self Edit Transcribed Date: 02/16/2025 [...] is recommended in 1 year. Mammo Location: [facility], [address] [place] [address], [phone], . -------- FINAL REPORT -------- Dictated By: Aline Pro Dictated Date: 02/16/2025 14:20 ET Assigned Physician: Aline Pro Reviewed and Electronically Signed By: Aline Pro Signed Date: 02/16/2025 14:25 ET Workstation ID: [id number] Transcribed By: Self Edit Transcribed Date: 02/16/2025 14:20 ET Petros OGDEN IMG BI PROCEDURES Final R esult * Diabetes Foot Exam (07/06/2024) [facility] Diabetes: Annual Foot Exam Abstracted Historical Provider MD HEALTH MAINTENANCE Final Result * Diabetes Eye Exam (03/15/2024) [facility] Diabetes: Annual Retina Eye Exam Abstracted Historical Provider MD HEALTH MAINTENANCE Final Result * DXA BONE [...] classified as having normal bone density. The [facility] Department of Internal Medicine recommends using National [...] beclassified as having normal bone density. The [facility] Department of Internal Medicine recommendsusing National Osteoporosis [...] or over-estimation of fracture risk by FRAX. Sarai BERNAL DXA PROCEDURES Final Result * Colonoscopy (07/11/2019) Colonoscopy No interpretation , abstracted Anatomical Region Laterality Modality Other Historical Provider HEALTH MAINTENANCE Final Result * Hepatitis C Screening (05/17/2013) Hepatitis C Screening Abstracted Historical Provider HEALTH MAINTENANCE Final Result from Last 3 Months or Most Recently Relevant to Health Maintenance Insurance [employer] MEDICARE Advance Directives Documents on File Type Date Recorded Patient Call Out Operator Expl anation Health Care Decision (hx) 01/28/2019 [...] (hx) 01/26/2019 AD KAPOOR DIRECTIVE Care Teams Broomcorn Sorter Relationship Specialty Start Date End Date Petros Wren PA [address] [place] [id number] PCP - General Internal Medicine 09/25/24
== END 2025-08-01 11:04 | disposition home or self-care (01) ==
LOC: HO.HMGAL 10:57
PROVIDERS: PCP Physician Assistant Medical; Visit Provider Registered Nurse Emergency
DX: J30.89 Other allergic rhinitis (principal)
CPT/HCPCS: 95117; 95165

== ENCOUNTER 2025-08-02 09:03 | Outpatient (AMB) | payer MEDICARE, SELFPAY ==
--- NOTE | 2025-08-02 09:07 | HO.SPINEOV ---
Intake Visit Reasons: 1st post op Intake Note: Mrs. Styles is here today for her 1st post op. [employer] Instructor Required: No Allergies sulfamethoxazole (From Bactrim) Allergy (Intermediate, Verified 07/12/25 07:35) HIVES trimethoprim (From Bactrim) Allergy (Intermediate, Verified 07/12/25 07:35) HIVES COMBID Allergy (Intermediate, Uncoded 07/05/25 12:04) eye muscles affected Assessment & Plan Assessment & Plan (1) S/P lumbar laminectomy: Code(s): Z98.890 - Other specified postprocedural states Category: Surgical Plan Operation: Left L5 Laminotomy Martha is a pleasant 69-year-old female who comes in today for 1st postoperative visit after having a left-sided L5 laminotomy completed by Dr. Elizabeth a few weeks ago. She reports that overall her pain has lessened fairly significantly since surgery, however she does still state that she has some continued left-sided ?sciatic? pain. Given this, she has remained fairly static since surgery. She is able to ambulate independently, however often times utilizes a walker at home. I stressed the importance of getting up and ambulating throughout the day. I recommended attempting to ambulate in total about 1 mile per day, likely best achieved through multiple attempts to walk throughout the day vs. completing this all at once. She asked several questions regarding the postoperative healing course, all of which I answered to the best of my ability. No new neurological deficits. The patient ambulates well and rises from seated position without difficulty. Her posterior incision site is closed and well healing. I would like to follow up with Martha again in 6 weeks for his 2nd postoperative visit. Maik Elizabeth MD,PhD [facility] Coding Level of Care Code Global (70114) Diagnoses S/P lumbar laminectomy Z98.890
--- OUTSIDE RECORDS SUMMARY | 2025-08-02 09:49 | XMS_ITS | Clinical Summary ---
Author Organization [facility] [address] [place] [address] [place] [phone] Phone Care Team Providers Care Transmission Tester Name Role Phone Petros Wren Primary Care Provider [phone] Allergies Active Allergy Reactions Criticality Noted Date [...] 01/05/2024 Type 2 diabetes mellitus (CMS/HCC V24, CMS/[facility] V 28) 12/14/2023 Hiatal hernia 02/02/2022 [...] - 06/27/2025 11:59 PM EDT Hospital Encounter [address] [phone] Preoperative cardiovascular examination; Degeneration of intervertebral disc of lumbar region, unspecified whether pain present; Type 2 diabetes mellitus without complication, without long-term current use of insulin (CMS/HCC V24, CMS/HCC V28); Acute pain of left shoulder Discharge Disposition: Home or Self Care 06/27/2025 10:00 AM EDT Consult Adult Medicine [address] [phone] Petros Wren PA Preoperative cardiovascular examination (Primary Dx); Degeneration of intervertebral disc of lumbar region, unspecified whether pain present; Type 2 diabetes mellitus without complication, without long-term current use of insulin ([facility] V24, [facility] V28); Acute pain of left shoulder 06/08/2025 10:45 AM EDT Office Visit Pulmonology [facility] [address] [phone] Perla Cordero MD PATRICIA on CPAP (Primary Dx); Mild persistent asthma, unspecified whether complicated; Scoliosis, unspecified scoliosis type, unspecified spinal region 06/08/2025 Telephone Pulmonology [facility] [address] [phone] Alondra Carroll [place] 06/01/2025 Telephone Adult Medicine [address] [phone] Petros Wren PA 05/29/2025 8:47 AM EDT Anesthesia Event [facility] [address] [place] [phone] Lion Teran MD Gomes, Sheldon B, MD 05/29/2025 8:35 AM EDT - 05/29/2025 11:59 PM EDT Hospital Encounter [facility] Xray [address] [place] [phone] Pain Discharge Disposition: Home or Self Care 05/29/2025 7:37 AM EDT - 05/29/2025 11:59 PM EDT Hospital Encounter [facility] [address] [place] [phone] Nasir Monsalve DO Slanda, Summer, CRNA Radiculopathy, lumbar region Discharge Disposition: Home or Self Care 05/04/2025 Telephone Pulmonology [facility] [address] [phone] Perla Cordero MD from Last 3 Months [...] artery disease Brother 2 had a stent, MD Coronary artery disease Father MD @ 58 Stroke Maternal Grandmother Arthritis Mother [...] care for your loved ones. For example, children's tutor or elderly care for an older adult? [...] 10:30 AM EST Office Visit Adult Medicine [address] [phone] Petros Wren PA [address] [place] [phone] 02/20/2026 10:40 AM EDT Appointment Radiology Department - [address] [phone] 06/07/2026 10:00 AM EDT Office Visit Pulmonology - [address] [place] [phone] Perla Cordero MD 175 [facility] [address] [place] [address] Health Maintenance Due Date Last Done Comments [...] complication, without long-term current use of insulin ([facility] V24, [facility] V28) XR SHOULDER 2+ VIEWS LEFT Routine 06/27/2025 11:14 AM EDT Preoperative cardiovascular examination Degeneration of intervertebral disc of lumbar region, unspecified whether pain present Type 2 diabetes mellitus without complication, without long-term current use of insulin ([facility] V24, CMS/[facility] V28) Acute pain of left shoulder LIPID PANEL WITH REFLEX TO DIRECT LDL Routine 06/27/2025 10:55 AM EDT Preoperative cardiovascular examination Degeneration of intervertebral disc of lumbar region, unspecified whether pain present Type 2 diabetes mellitus without complication, without long-term current use of insulin ([facility] V24, CMS/[facility] V28) COMPREHENSIVE METABOLIC PANEL Routine 06/27/2025 10:55 AM EDT Preoperative cardiovascular examination Degeneration of intervertebral disc of lumbar region, unspecified whether pain present Type 2 diabetes mellitus without complication, without long-term current use of insulin ([facility] V24, CMS/[facility] V28) HEMOGLOBIN A1C Routine 06/27/2025 10:55 AM EDT Preoperative cardiovascular examination Degeneration of intervertebral disc of lumbar region, unspecified whether pain present Type 2 diabetes mellitus without complication, without long-term current use of insulin ([facility] V24, CMS/[facility] V28) MICROALBUMIN CREATININE URINE RATIO Routine 03/26/2025 11:15 AM EDT Type 2 diabetes mellitus without complication, without long-term current use of insulin ([facility] V24, CMS/[facility] V28) Obstructive sleep apnea Essential hypertension, [...] Signed Date: 06/27/2025 11:41 ET Workstation ID: [id number] Transcribed By: Self Edit Transcribed Date: 06/27/2025 [...] Signed Date: 06/27/2025 11:41 ET Workstation ID: [id number] Transcribed By: Self Edit Transcribed Date: 06/27/2025 11:40 ET Petros OGDEN IMG XR PROCEDURES Final R esult * (ABNORMAL) Lipid panel with reflex to direct LDL (06/27/2025 10:55 AM EDT) Cholesterol 201(H) 0 - 200 mg/dL LAB CHEMISTRY METHOD 06/27/2025 4:57 PM EDT [facility] Triglycerides 109 0 - 150 mg/dL LAB CHEMISTRY METHOD 06/27/2025 4:57 PM EDT [facility] HDL 97 >=40 mg/dL LAB CHEMISTRY METHOD 06/27/2025 4:57 PM EDT [facility] LDL Calculated 82 0 - 100 mg/dL LAB CHEMISTRY METHOD 06/27/2025 4:57 PM EDT [facility] Comment:Estimated LDL Calcul ated using equation: Total cholesterol - HDL cholesterol - (Triglycerides/5) VLDL Cholesterol Ramesh 21.8 mg/dL LAB CHEMISTRY METHOD 06/27/2025 4:57 PM EDT [facility] Non HDL Chol. (LDL+VLDL) 104 <145 mg/dL LAB CHEMISTRY METHOD 06/27/2025 4:57 PM EDT [facility] Chol/HDL Ratio 2.1 0.0 - 4.4 LAB CHEMISTRY METHOD 06/27/2025 4:57 PM EDT [facility] Blood Venous blood specimen / Unknown Venipuncture / Unknown 06/27/2025 10:55 AM EDT 06/27/2025 10:55 AM EDT Petros OGDEN LAB BLOOD ORDERABLES Brissa l Result Performing Organization Address City/[facility]/ZIP Co de Phone Number [facility] [address] [place] [address], * (ABNORMAL) Hemoglobin A1c (06/27/2025 10:55 AM EDT) [facility] Hemoglobin A1C 6.6(H) <6.5 % LAB CHEMISTRY METHOD 06/27/2025 1:04 PM EDT [facility] Mean Bld Glu Estim. 143 mg/dL LAB CHEMISTRY METHOD 06/27/2025 1:04 PM EDT [facility] Blood Venous blood specimen / Unknown Venipuncture / Unknown 06/27/2025 10:55 AM EDT 06/27/2025 10:55 AM EDT Petros OGDEN LAB BLOOD ORDERABLES Brissa l Result Performing Organization Address [facility]/ZIP Co de Phone Number [facility] [address] [place] [address], * (ABNORMAL) Comprehensive metabolic panel (06/27/2025 10:55 AM EDT) [facility] Sodium 138 133 - 145 mmol/L LAB CHEMISTRY METHOD 06/27/2025 4:54 PM EDT [facility] Potassium 4.6 3.5 - 5.5 mmol/L LAB CHEMISTRY METHOD 06/27/2025 4:54 PM EDT [facility] Chloride 100 96 - 110 mmol/L LAB CHEMISTRY METHOD 06/27/2025 4:54 PM EDT [facility] CO2 33(H) 21 - 32 mmol/L LAB CHEMISTRY METHOD 06/27/2025 4:54 PM EDT [facility] Anion Gap 5 3 - 11 LAB CHEMISTRY METHOD 06/27/2025 4:54 PM EDT [facility] Glucose 82 70 - 100 mg/dL LAB CHEMISTRY METHOD 06/27/2025 4:54 PM [facility] BUN 14 5 - 25 mg/dL LAB CHEMISTRY METHOD 06/27/2025 4:54 PM [facility] Creatinine 0.68 0.50 - 1.10 mg/dL LAB CHEMISTRY METHOD 06/27/2025 4:54 PM [facility] eGFR 96 >=60 mL/min/1. 73m2 LAB CHEMISTRY METHOD 06/27/2025 4:54 PM [facility] Comment:Calculation based on the Chronic Kidney Disease Epidemiology Collaboration (CKD-EPI) equation refit without adjustment for race. BUN/Creatinine Ratio 20.6 LAB CHEMISTRY METHOD 06/27/2025 4:54 PM [facility] Calcium 9.2 8.5 - 10.5 mg/dL LAB CHEMISTRY METHOD 06/27/2025 4:54 PM [facility] AST (SGOT) 16 10 - 42 unit/L LAB CHEMISTRY METHOD 06/27/2025 4:54 PM [facility] ALT (SGPT) 31 10 - 60 unit/L LAB CHEMISTRY METHOD 06/27/2025 4:54 PM [facility] Alkaline Phosphatase 150(H) 42 - 121 unit/L LAB CHEMISTRY METHOD 06/27/2025 4:54 PM [facility] Total Protein 7.1 6.0 - 8.0 g/dL LAB CHEMISTRY METHOD 06/27/2025 4:54 PM [facility] Albumin 3.7 3.2 - 5.0 g/dL LAB CHEMISTRY METHOD 06/27/2025 4:54 PM [facility] Total Bilirubin 0.3 0.0 - 1.4 mg/dL LAB CHEMISTRY METHOD 06/27/2025 4:54 PM [facility] Blood Venous blood specimen / Unknown Venipuncture / Unknown 06/27/2025 10:55 AM EDT 06/27/2025 10:55 AM EDT Petros OGDEN LAB BLOOD ORDERABLES Brissa l Result [facility] [address] [place] [address], [place] [phone] * (ABNORMAL) Microalbumin creatinine urine ratio (03/26/2025 11:15 AM EDT) Creatinine, Urine 16.0 mg/dL LAB CHEMISTRY METHOD 03/26/2025 2:51 PM EDT [facility] Microalb, Ur 5.0 0.0 - 29.0 mg/L LAB CHEMISTRY METHOD 03/26/2025 2:51 PM EDT [facility] Microalb/Creat Ratio 31(H) <30 mg/g creat LAB CHEMISTRY METHOD 03/26/2025 2:51 PM EDT [facility] Urine Urine specimen obtained by clean catch procedure / Unknown Non-blood Collection / Unknown 03/26/2025 11:15 AM EDT 03/26/2025 11:15 AM EDT Petros OGDEN LAB URINE ORDERABLES Brissa l Result Performing Organization Address City/[facility]/ZIP Co de Phone Number [facility] [address] [place] [address], [place] [phone] * MG Mammo Digital Screening w Akhil bilat (02/16/2025 10:24 AM EDT) Anatomical Region Laterality Modality Breast Bilateral Mammography 02/16/2025 2:20 PM EDT Impressions 02/16/2025 2:25 PM EDT Benign. BI-RADS CATEGORY: 1 - NEGATIVE RECOMMENDATION: Screening bilateral mammogram is recommended in 1 year. Mammo Location: [facility], [address] [place] [address], [phone], . -------- FINAL REPORT -------- Dictated By: Aline Pro Dictated Date: 02/16/2025 14:20 ET Assigned Physician: Aline Pro Reviewed and Electronically Signed By: Aline Pro Signed Date: 02/16/2025 14:25 ET Workstation ID: [id number] Transcribed By: Self Edit Transcribed Date: 02/16/2025 [...] is recommended in 1 year. Mammo Location: [facility], [address] [place] [address], [phone], . -------- FINAL REPORT -------- Dictated By: Aline Pro Dictated Date: 02/16/2025 14:20 ET Assigned Physician: Aline Pro Reviewed and Electronically Signed By: Aline Pro Signed Date: 02/16/2025 14:25 ET Workstation ID: [id number] Transcribed By: Self Edit Transcribed Date: 02/16/2025 14:20 ET Petros OGDEN IMG BI PROCEDURES Final R esult * Diabetes Foot Exam (07/06/2024) [facility] Diabetes: Annual Foot Exam Abstracted Historical Provider MD HEALTH MAINTENANCE Final Result * Diabetes Eye Exam (03/15/2024) [facility] Diabetes: Annual Retina Eye Exam Abstracted Historical [...] classified as having normal bone density. [facility] Department of Internal Medicine recommends using National [...] beclassified as having normal bone density. [facility] Department of Internal Medicine recommendsusing National Osteoporosis [...] Documents on File Type Date Recorded Patient College Administrator Expl anation Health Care Decision (hx) 01/28/2019 [...] (hx) 01/26/2019 AD KAPOOR DIRECTIVE Care Teams Transmission Tester Relationship Specialty Start Date End Date Petros Wren PA [address] [place] [id number] PCP - General Internal Medicine 09/25/24
--- OUTSIDE RECORDS SUMMARY | 2025-08-02 09:49 | XMS_ITS | Clinical Summary ---
Author Organization [facility] Address [address] [place] [address] Care Team Providers Care Program Architect Name Role Phone Colin Leiva MD Primary Care Provider [phone] Social History Tobacco Use Types Packs/Day Years [...] age to complete this topic Care Teams Program Architect Relationship Specialty Start Date End Date Colin Leiva MD PCP - General Central Office Supervisor 10/07/18
--- OUTSIDE RECORDS SUMMARY | 2025-08-02 09:49 | XMS_ITS | Patient Health Record ---
Author Organization [facility] Address [address] [place] [phone] Care Team Providers Care Auto Leasing Manager Name Role Phone Colin Leiva MD Primary Care Provider Ricardo Lo Unavailable [phone] Allergies Allergen (clinical drug ingredient) Drug/Non Drug [...] W/U Status Risk Notes Problem Plantar fasciitis (817414448) Plantar Fasciitis (728.71) Active confirmed Plan Of Treatment Pending Test Test Name Order Date [id number] TENDON SHEATH/LIGAMENT 1 12/16/2010 Insurance Providers Payer Name Payer Address Payer Phone Subscriber Number Group Number Insured Name Patient Relationship to Insured Coverage Start Date Coverage End Date [facility] [address] [place] [address] [phone] [id number] Martha Styles Self - patient is the insured Medical (General) History Medical History History ICD Code mumps measles hypertension headaches/migraines back, hip, knee pain asthma Surgical History Surgery Date(Month/Year) cholecystectomy tubal ligation topaz left foot
== END 2025-08-02 09:27 | disposition home or self-care (01) ==
LOC: HO.HNS 09:04
PROVIDERS: PCP Physician Assistant Medical; Visit Provider Physician Assistant
DX: Z98.890 Other specified postprocedural states (principal)
CPT/HCPCS: 99024

== ENCOUNTER → 2025-08-02 09:03 | Outpatient (BNVA) | payer MEDICARE, SELFPAY | PROVIDERS: PCP Physician Assistant Medical; Visit Provider Physician Assistant | DX: M54.9 Dorsalgia, unspecified (principal); Z98.890 Other specified postprocedural states | CPT/HCPCS: 99212 ==

== ENCOUNTER 2025-08-13 10:41 | Outpatient (AMB) | payer MEDICARE, SELFPAY ==
--- OUTSIDE RECORDS SUMMARY | 2025-08-13 12:44 | XMS_ITS | Clinical Summary ---
Author Organization [facility] Address [address] [place] [address] Care Team Providers Care Removable Prosthodontist Name Role Phone Colin Leiva MD Primary Care Provider [phone] Social History Tobacco Use Types Packs/Day Years [...] age to complete this topic Care Teams Removable Prosthodontist Relationship Specialty Start Date End Date Colin Leiva MD PCP - General Used Car Renovator 10/07/18
--- OUTSIDE RECORDS SUMMARY | 2025-08-13 12:44 | XMS_ITS | Clinical Summary ---
Author Organization [facility] [address] [place] [address] [place] [phone] Phone Care Team Providers Care Manager Landscape Name Role Phone Petros Wren Primary Care Provider [phone] Allergies Active Allergy Reactions Criticality Noted Date [...] Type 2 diabetes mellitus (CMS/HCC V24, CMS/[facility] V 28) 12/14/2023 Hiatal hernia 02/02/2022 Chronic [...] - 06/27/2025 11:59 PM EDT Hospital Encounter [address] [phone] Preoperative cardiovascular examination; Degeneration of intervertebral disc of lumbar region, unspecified whether pain present; Type 2 diabetes mellitus without complication, without long-term current use of insulin (CMS/HCC V24, CMS/HCC V28); Acute pain of left shoulder Discharge Disposition: Home or Self Care 06/27/2025 10:00 AM EDT Consult Adult Medicine [address] [phone] Petros Wren PA Preoperative cardiovascular examination (Primary Dx); Degeneration of intervertebral disc of lumbar region, unspecified whether pain present; Type 2 diabetes mellitus without complication, without long-term current use of insulin ([facility] V24, [facility] V28); Acute pain of left shoulder 06/08/2025 10:45 AM EDT Office Visit Pulmonology [facility] [address] [phone] Perla Cordero MD PATRICIA on CPAP (Primary Dx); Mild persistent asthma, unspecified whether complicated; Scoliosis, unspecified scoliosis type, unspecified spinal region 06/08/2025 Telephone Pulmonology [facility] [address] [phone] Alondra [place] 06/01/[address] [facility] [address] [place] [phone] Petros Wren PA 05/29/2025 8:47 AM EDT Anesthesia Event [facility] [address] [place] [phone] Lion Teran MD Gomes, Sheldon B, MD 05/29/2025 8:35 AM EDT - 05/29/2025 11:59 PM EDT Hospital Encounter [facility] Xray [address] [place] [phone] Pain Discharge Disposition: Home or Self Care 05/29/2025 7:37 AM EDT - 05/29/2025 11:59 PM EDT Hospital Encounter [facility] [address] [place] [phone] Nasir Monsalve DO Slanda, Summer, CRNA Radiculopathy, lumbar region Discharge Disposition: Home or Self Care from Last 3 Months Immunizations Immunization Administration Dates Next Due Influenza Quadravalent, MDCK [...] artery disease Brother 2 had a stent, MS Coronary artery disease Father MS @ 58 Stroke Maternal Grandmother Arthritis Mother [...] your loved ones. For example, child care nurse or elderly care for an older adult? [...] Date Recorded What is your living situation? Unrecognized valu e 03/26/2025 Interpersonal Safety Answer Date Record ed Physical Abuse Unrecognized value 05/29/2025 Verbal Abuse Unrecognized value 05/29/2025 Comments No Sex and Gender Information [...] 10:30 AM EST Office Visit Adult Medicine [address] [phone] Petros Wren PA [address] [place] [phone] 02/20/2026 10:40 AM EDT Appointment Radiology Department - [address] [phone] 06/07/2026 10:00 AM EDT Office Visit Pulmonology - [address] [phone] Perla Cordero MD 175 [facility] [address] [place] [address] Health Maintenance Due Date Last Done Comments [...] complication, without long-term current use of insulin ([facility] V24, [facility] V28) XR SHOULDER 2+ VIEWS LEFT Routine 06/27/2025 11:14 AM EDT Preoperative cardiovascular examination Degeneration of intervertebral disc of lumbar region, unspecified whether pain present Type 2 diabetes mellitus without complication, without long-term current use of insulin ([facility] V24, [facility] V28) Acute pain of left shoulder LIPID PANEL WITH REFLEX TO DIRECT LDL Routine 06/27/2025 10:55 AM EDT Preoperative cardiovascular examination Degeneration of intervertebral disc of lumbar region, unspecified whether pain present Type 2 diabetes mellitus without complication, without long-term current use of insulin (CMS/HCC V24, CMS/HCC V28) COMPREHENSIVE METABOLIC PANEL Routine 06/27/2025 10:55 AM EDT Preoperative cardiovascular examination Degeneration of intervertebral disc of lumbar region, unspecified whether pain present Type 2 diabetes mellitus without complication, without long-term current use of insulin (CMS/HCC V24, CMS/HCC V28) HEMOGLOBIN A1C Routine 06/27/2025 10:55 AM EDT Preoperative cardiovascular examination Degeneration of intervertebral disc of lumbar region, unspecified whether pain present Type 2 diabetes mellitus without complication, without long-term current use of insulin (CMS/HCC V24, CMS/HCC V28) MICROALBUMIN CREATININE URINE RATIO Routine 03/26/2025 11:15 AM EDT Type 2 diabetes mellitus without complication, without long-term current use of insulin (CMS/HCC V24, CMS/HCC V28) Obstructive sleep apnea Essential hypertension, benign [...] Signed Date: 06/27/2025 11:41 ET Workstation ID: [id number] Transcribed By: Self Edit Transcribed Date: 06/27/2025 [...] Signed Date: 06/27/2025 11:41 ET Workstation ID: [id number] Transcribed By: Self Edit Transcribed Date: 06/27/2025 [...] Result [facility] [address] [place] [address], [place] [phone] * (ABNORMAL) Hemoglobin A1c (06/27/2025 10:55 AM EDT) [facility] Hemoglobin A1C 6.6(H) <6.5 % LAB CHEMISTRY [...] Result [facility] [address] [place] [address], * (ABNORMAL) Comprehensive metabolic panel (06/27/2025 10:55 AM EDT) [facility] Sodium 138 133 - 145 mmol/L LAB CHEMISTRY METHOD 06/27/2025 4:54 PM [facility] Potassium 4.6 3.5 - 5.5 mmol/L LAB CHEMISTRY METHOD 06/27/2025 4:54 PM [facility] Chloride 100 96 - 110 mmol/L LAB CHEMISTRY METHOD 06/27/2025 4:54 PM T [facility] CO2 33(H) 21 - 32 mmol/L LAB CHEMISTRY METHOD 06/27/2025 4:54 PM [facility] Anion Gap 5 3 - 11 LAB CHEMISTRY METHOD 06/27/2025 4:54 PM [facility] Glucose 82 70 - 100 mg/dL LAB CHEMISTRY METHOD 06/27/2025 4:54 PM [facility] BUN 14 5 - 25 mg/dL LAB CHEMISTRY METHOD 06/27/2025 4:54 PM [facility] Creatinine 0.68 0.50 - 1.10 mg/dL LAB CHEMISTRY METHOD 06/27/2025 4:54 PM [facility] eGFR 96 >=60 mL/min/1. 73m2 LAB CHEMISTRY METHOD 06/27/2025 4:54 PM [facility] Comment:Calculation based on the Chronic Kidney Disease Epidemiology Collaboration (CKD-EPI) equation refit without adjustment for race. BUN/Creatinine Ratio 20.6 LAB CHEMISTRY METHOD 06/27/2025 4:54 PM [facility] Calcium 9.2 8.5 - 10.5 mg/dL LAB CHEMISTRY METHOD 06/27/2025 4:54 PM [facility] AST (SGOT) 16 10 - 42 unit/L LAB CHEMISTRY METHOD 06/27/2025 4:54 PM [facility] ALT (SGPT) 31 10 - 60 unit/L LAB CHEMISTRY METHOD 06/27/2025 4:54 PM [facility] Alkaline Phosphatase 150(H) 42 - 121 unit/L LAB CHEMISTRY METHOD 06/27/2025 4:54 PM [facility] Total Protein 7.1 6.0 - 8.0 g/dL LAB CHEMISTRY METHOD 06/27/2025 4:54 PM [facility] Albumin 3.7 3.2 - 5.0 g/dL LAB CHEMISTRY METHOD 06/27/2025 4:54 PM [facility] Total Bilirubin 0.3 0.0 - 1.4 mg/dL LAB CHEMISTRY METHOD 06/27/2025 4:54 PM [facility] Blood Venous blood specimen / Unknown Venipuncture / Unknown 06/27/2025 10:55 AM EDT 06/27/2025 10:55 AM EDT Petros OGDEN LAB BLOOD ORDERABLES Brissa l Result Performing Organization Address City/State/[facility] de Phone Number [facility] [address] [place] [address], [place] [phone] * (ABNORMAL) Microalbumin creatinine urine ratio (03/26/2025 [...] ORDERABLES Brissa l Result Performing Organization Address [facility] Co de Phone Number [facility] [address] [place] [address], [place] [phone] * MG Mammo Digital Screening w Akhil bilat (02/16/2025 10:24 AM EDT) Anatomical Region Laterality Modality Breast Bilateral Mammography 02/16/2025 2:20 PM EDT Impressions 02/16/2025 2:25 PM EDT Benign. BI-RADS CATEGORY: 1 - NEGATIVE RECOMMENDATION: Screening bilateral mammogram is recommended in 1 year. Mammo Location: [facility], [address] [place] [address], [phone], . -------- FINAL REPORT -------- Dictated By: Aline Pro Dictated Date: 02/16/2025 14:20 ET Assigned Physician: Aline Pro Reviewed and Electronically Signed By: Aline Pro Signed Date: 02/16/2025 14:25 ET Workstation ID: [id number] Transcribed By: Self Edit Transcribed Date: 02/16/2025 [...] is recommended in 1 year. Mammo Location: [facility], [address] [place] [address], [address], . -------- FINAL REPORT -------- Dictated By: Aline Pro Dictated Date: 02/16/2025 14:20 ET Assigned Physician: Aline Pro Reviewed and Electronically Signed By: Aline Pro Signed Date: 02/16/2025 14:25 ET Workstation ID: [id number] Transcribed By: Self Edit Transcribed Date: 02/16/2025 14:20 ET Petros OGDEN IMG BI PROCEDURES Final R esult * Diabetes Foot Exam (07/06/2024) Pathologist [facility] Diabetes: Annual Foot Exam Abstracted Historical Provider HEALTH MAINTENANCE Final Result * Diabetes Eye Exam (03/15/2024) [facility] Diabetes: Annual Retina Eye Exam Abstracted Historical [...] classified as having normal bone density. [facility] Department of Internal Medicine recommends using National [...] beclassified as having normal bone density. [facility] Department of Internal Medicine recommendsusing National Osteoporosis [...] Documents on File Type Date Recorded Patient Exhibits Manager Expl anation Health Care Decision (hx) 01/28/2019 [...] (hx) 01/26/2019 AD KAPOOR DIRECTIVE Care Teams Manager Landscape Relationship Specialty Start Date End Date Petros Wren PA [address] [place] [address] PCP - General Internal Medicine 09/25/24
--- OUTSIDE RECORDS SUMMARY | 2025-08-13 12:44 | XMS_ITS | Patient Health Record ---
Author Organization [facility] Address [address] [place] [phone] Care Team Providers Care Roll Former Name Role Phone Colin Leiva MD Primary Care Provider Ricardo Gallegos Unavailable [phone] Allergies Allergen (clinical drug ingredient) Drug/Non Drug [...] W/U Status Risk Notes Problem Plantar fasciitis (622969148) Plantar Fasciitis (728.71) Active confirmed Plan Of Treatment Pending Test Test Name Order Date [id number] TENDON SHEATH/LIGAMENT 1 12/16/2010 Insurance Providers Payer Name Payer Address Payer Phone Subscriber Number Group Number Insured Name Patient Relationship to Insured Coverage Start Date Coverage End Date [facility] All Others [address] [place] [address] [phone] [id number] Martha Styles Self - patient is the insured Medical (General) History Medical History History ICD Code mumps measles hypertension headaches/migraines back, hip, knee pain asthma Surgical History Surgery Date(Month/Year) cholecystectomy tubal ligation topaz left foot
== END 2025-08-13 10:54 | disposition home or self-care (01) ==
LOC: HO.HMGAL 10:41
PROVIDERS: PCP Physician Assistant Medical; Visit Provider Registered Nurse Emergency
DX: J30.89 Other allergic rhinitis (principal)
CPT/HCPCS: 95117; 95165

== ENCOUNTER 2025-08-27 11:25 | Outpatient (AMB) | payer MEDICARE, SELFPAY ==
--- OUTSIDE RECORDS SUMMARY | 2025-08-27 14:09 | XMS_ITS | Patient Health Record ---
Author Organization [facility] Address [address] [place] [phone] Care Team Providers Care Control And Recovery Special Tactics Name Role Phone Colin Leiva MD Primary Care Provider Ricardo Gallegos Unavailable [phone] Allergies Allergen (clinical drug ingredient) Drug/Non Drug [...] W/U Status Risk Notes Problem Plantar fasciitis ([id number]) Plantar Fasciitis (728.71) Active confirmed Plan Of Treatment Pending Test Test Name Order Date [id number] TENDON SHEATH/LIGAMENT 1 12/16/2010 Insurance Providers Payer Name Payer Address Payer Phone Subscriber Number Group Number Insured Name Patient Relationship to Insured Coverage Start Date Coverage End Date [facility] All Others [address] [place] [address] [phone] [id number] Martha Styles Self - patient is the insured Medical (General) History Medical History History ICD Code mumps measles hypertension headaches/migraines back, hip, knee pain asthma Surgical History Surgery Date(Month/Year) cholecystectomy tubal ligation topaz left foot
--- OUTSIDE RECORDS SUMMARY | 2025-08-27 14:09 | XMS_ITS | Clinical Summary ---
Author Organization [facility] Address [address] [place] [address] Care Team Providers Care Medical Researcher Name Role Phone Colin Leiva MD Primary Care Provider [phone] Social History Tobacco Use Types Packs/Day Years [...] age to complete this topic Care Teams Medical Researcher Relationship Specialty Start Date End Date Colin Leiva MD PCP - General Prorate Clerk 10/07/18
== END 2025-08-27 11:26 | disposition home or self-care (01) ==
LOC: HO.HMGAL 11:25
PROVIDERS: PCP Physician Assistant Medical; Visit Provider Registered Nurse Emergency
DX: J30.89 Other allergic rhinitis (principal)
CPT/HCPCS: 95117; 95165

== ENCOUNTER 2025-09-10 10:31 | Outpatient (AMB) | payer MEDICARE, SELFPAY ==
--- OUTSIDE RECORDS SUMMARY | 2025-09-10 12:44 | XMS_ITS | Clinical Summary ---
Author Organization [facility] [address] [place] [address] [place] [phone] Phone Care Team Providers Care Gold Charmer Name Role Phone Petros Wren Primary Care Provider [phone] Allergies Active Allergy Reactions Criticality Noted Date [...] 01/05/2024 Type 2 diabetes mellitus (CMS/HCC V24, CMS/[facility] V 28) 12/14/2023 Hiatal hernia 02/02/2022 Chronic [...] - 06/27/2025 11:59 PM EDT Hospital Encounter [address] [phone] Preoperative cardiovascular examination; Degeneration of intervertebral disc of lumbar region, unspecified whether pain present; Type 2 diabetes mellitus without complication, without long-term current use of insulin (CMS/HCC V24, CMS/HCC V28); Acute pain of left shoulder Discharge Disposition: Home or Self Care 06/27/2025 10:00 AM EDT Consult Adult Medicine [address] [phone] Petros Wren PA Preoperative cardiovascular examination (Primary Dx); Degeneration of intervertebral disc of lumbar region, unspecified whether pain present; Type 2 diabetes mellitus without complication, without long-term current use of insulin ([facility] V24, [facility] V28); Acute pain of left shoulder from Last 3 Months Immunizations Immunization Administration [...] artery disease Brother 2 had a stent, [place] Coronary artery disease Father [place] @ 58 Stroke Maternal Grandmother Arthritis Mother [...] care for your loved ones. For example, attendant children's institution or elderly care for an older adult? [...] EST Office Visit Adult [facility] - [address] [phone] Petros Wren PA [address] [place] [phone] 02/20/2026 10:40 AM EDT Appointment Radiology Department - [address] [phone] 06/07/2026 10:00 AM EDT Office Visit Pulmonology - [address] [place] [phone] Perla Cordero MD [address] [place] [phone] Health Maintenance Due Date Last Done Comments RSV Immunization Adult Patients (1 - Risk 50-74 years 1-dose series) 2007 Medicare Annual Wellness Visit 10/17/2022 Diabetes: Annual [...] complication, without long-term current use of insulin ([facility] V24, [facility] V28) XR SHOULDER 2+ VIEWS LEFT Routine 06/27/2025 11:14 AM EDT Preoperative cardiovascular examination Degeneration of intervertebral disc of lumbar region, unspecified whether pain present Type 2 diabetes mellitus without complication, without long-term current use of insulin ([facility] V24, [facility] V28) Acute pain of left shoulder LIPID PANEL WITH REFLEX TO DIRECT LDL Routine 06/27/2025 10:55 AM EDT Preoperative cardiovascular examination Degeneration of intervertebral disc of lumbar region, unspecified whether pain present Type 2 diabetes mellitus without complication, without long-term current use of insulin ([facility] V24, [facility] V28) COMPREHENSIVE METABOLIC PANEL Routine 06/27/2025 10:55 AM EDT Preoperative cardiovascular examination Degeneration of intervertebral disc of lumbar region, unspecified whether pain present Type 2 diabetes mellitus without complication, without long-term current use of insulin ([facility] V24, [facility] V28) HEMOGLOBIN A1C Routine 06/27/2025 10:55 AM EDT Preoperative cardiovascular examination Degeneration of intervertebral disc of lumbar region, unspecified whether pain present Type 2 diabetes mellitus without complication, without long-term current use of insulin ([facility] V24, [facility] V28) MICROALBUMIN CREATININE URINE RATIO Routine 03/26/2025 11:15 AM EDT Type 2 diabetes mellitus without complication, without long-term current use of insulin ([facility] V24, [facility] V28) Obstructive sleep apnea Essential hypertension, benign Heartburn PAC (premature atrial contraction) Class 2 obesity MG MAMMO DIGITAL SCREENING W AKHIL BILAT Routine 02/16/2025 10:24 AM EDT Encounter for screening mammogram for breast cancer HM DIABETES FOOT EXAM Routine 07/06/2024 DIABETES EYE [...] Signed Date: 06/27/2025 11:41 ET Workstation ID: [id number] Transcribed By: Self Edit Transcribed Date: 06/27/2025 [...] Signed Date: 06/27/2025 11:41 ET Workstation ID: [id number] Transcribed By: Self Edit Transcribed Date: 06/27/2025 11:40 ET Petros OGDEN IMG XR PROCEDURES Final R esult * (ABNORMAL) Lipid panel with reflex to direct LDL (06/27/2025 10:55 AM EDT) Cholesterol 201(H) 0 - 200 mg/dL LAB CHEMISTRY METHOD 06/27/2025 4:57 PM EDT [facility] Triglycerides 109 0 - 150 mg/dL LAB CHEMISTRY METHOD 06/27/2025 4:57 PM EDT [facility] HDL 97 >=40 mg/dL LAB CHEMISTRY METHOD 06/27/2025 4:57 PM EDT [facility] LDL Calculated 82 0 - 100 mg/dL LAB CHEMISTRY METHOD 06/27/2025 4:57 PM T [facility] Comment:Estimated LDL Calcul ated using equation: Total cholesterol - HDL cholesterol - (Triglycerides/5) VLDL Cholesterol Ramesh 21.8 mg/dL LAB CHEMISTRY METHOD 06/27/2025 4:57 PM [facility] Non HDL Chol. (LDL+VLDL) 104 <145 mg/dL LAB CHEMISTRY METHOD 06/27/2025 4:57 PM EDT [facility] Chol/HDL Ratio 2.1 0.0 - 4.4 LAB CHEMISTRY METHOD 06/27/2025 4:57 PM EDT [facility] Blood Venous blood specimen / Unknown Venipuncture / Unknown 06/27/2025 10:55 AM EDT 06/27/2025 10:55 AM EDT Petros OGDEN LAB BLOOD ORDERABLES Brissa l Result Performing Organization Address [facility]/ZIP Co de Phone Number [facility] [address] [place] [address], [place] [phone] * (ABNORMAL) Hemoglobin A1c (06/27/2025 10:55 AM EDT) Hemoglobin A1C 6.6(H) <6.5 % LAB CHEMISTRY METHOD 06/27/2025 1:04 PM EDT [facility] Mean Bld Glu Estim. 143 mg/dL LAB CHEMISTRY METHOD 06/27/2025 1:04 PM EDT [facility] Blood Venous blood specimen / Unknown Venipuncture / Unknown 06/27/2025 10:55 AM EDT 06/27/2025 10:55 AM EDT Petros OGDEN LAB BLOOD ORDERABLES Brissa l Result Performing Organization Address [facility]/ZIP Co de Phone Number [facility] [address] [place] [address], [place] [phone] * (ABNORMAL) Comprehensive metabolic panel (06/27/2025 10:55 AM EDT) Sodium 138 133 - 145 mmol/L LAB CHEMISTRY METHOD 06/27/2025 4:54 PM EDT [facility] Potassium 4.6 3.5 - 5.5 mmol/L LAB CHEMISTRY METHOD 06/27/2025 4:54 PM EDT [facility] Chloride 100 96 - 110 mmol/L LAB CHEMISTRY METHOD 06/27/2025 4:54 PM [facility] CO2 33(H) 21 - 32 mmol/L LAB CHEMISTRY METHOD 06/27/2025 4:54 PM [facility] Anion Gap 5 3 - 11 LAB CHEMISTRY METHOD 06/27/2025 4:54 PM [facility] Glucose 82 70 - 100 mg/dL LAB CHEMISTRY METHOD 06/27/2025 4:54 PM [facility] BUN 14 5 - 25 mg/dL LAB CHEMISTRY METHOD 06/27/2025 4:54 PM [facility] Creatinine 0.68 0.50 - 1.10 mg/dL LAB CHEMISTRY METHOD 06/27/2025 4:54 PM [facility] eGFR 96 >=60 mL/min/1. 73m2 LAB CHEMISTRY METHOD 06/27/2025 4:54 PM [facility] Comment:Calculation based on the Chronic Kidney Disease Epidemiology Collaboration (CKD-EPI) equation refit without adjustment for race. BUN/Creatinine Ratio 20.6 LAB CHEMISTRY METHOD 06/27/2025 4:54 PM [facility] Calcium 9.2 8.5 - 10.5 mg/dL LAB CHEMISTRY METHOD 06/27/2025 4:54 PM [facility] AST (SGOT) 16 10 - 42 unit/L LAB CHEMISTRY METHOD 06/27/2025 4:54 PM [facility] ALT (SGPT) 31 10 - 60 unit/L LAB CHEMISTRY METHOD 06/27/2025 4:54 PM [facility] Alkaline Phosphatase 150(H) 42 - 121 unit/L LAB CHEMISTRY METHOD 06/27/2025 4:54 PM [facility] Total Protein 7.1 6.0 - 8.0 g/dL LAB CHEMISTRY METHOD 06/27/2025 4:54 PM [facility] Albumin 3.7 3.2 - 5.0 g/dL LAB CHEMISTRY METHOD 06/27/2025 4:54 PM EDT [facility] Total Bilirubin 0.3 0.0 - 1.4 mg/dL LAB CHEMISTRY METHOD 06/27/2025 4:54 PM EDT [facility] Blood Venous blood specimen / Unknown Venipuncture / Unknown 06/27/2025 10:55 AM EDT 06/27/2025 10:55 AM EDT Petros OGDEN LAB BLOOD ORDERABLES Brissa l Result [facility] [address] [place] [address], [place] [phone] * (ABNORMAL) Microalbumin creatinine urine ratio (03/26/2025 11:15 AM EDT) Creatinine, Urine 16.0 mg/dL LAB CHEMISTRY METHOD 03/26/2025 2:51 PM EDT [facility] Microalb, Ur 5.0 0.0 - 29.0 mg/L LAB CHEMISTRY METHOD 03/26/2025 2:51 PM EDT [facility] Microalb/Creat Ratio 31(H) <30 mg/g creat LAB CHEMISTRY METHOD 03/26/2025 2:51 PM EDT [facility] Urine Urine specimen obtained by clean catch procedure / Unknown Non-blood Collection / Unknown 03/26/2025 11:15 AM EDT 03/26/2025 11:15 AM EDT Petros OGDEN LAB URINE ORDERABLES Brissa l Result [facility] [address] [place] [address], [place] [phone] * MG Mammo Digital Screening w Akhil bilat (02/16/2025 10:24 AM EDT) Anatomical Region Laterality Modality Breast Bilateral Mammography 02/16/2025 2:20 PM EDT Impressions 02/16/2025 2:25 PM EDT Benign. BI-RADS CATEGORY: 1 - NEGATIVE RECOMMENDATION: Screening bilateral mammogram is recommended in 1 year. Mammo Location: [facility], [address] [place] [address], [id number], . -------- FINAL REPORT -------- Dictated By: Aline Pro Dictated Date: 02/16/2025 14:20 ET Assigned Physician: Aline Pro Reviewed and Electronically Signed By: Aline Pro Signed Date: 02/16/2025 14:25 ET Workstation ID: [id number] Transcribed By: Self Edit Transcribed Date: 02/16/2025 [...] is recommended in 1 year. Mammo Location: [facility], [address] [place] [address], [id number], . -------- FINAL REPORT -------- Dictated By: Aline Pro Dictated Date: 02/16/2025 14:20 ET Assigned Physician: Aline Pro Reviewed and Electronically Signed By: Aline Pro Signed Date: 02/16/2025 14:25 ET Workstation ID: [id number] Transcribed By: Self Edit Transcribed Date: 02/16/2025 14:20 ET Petros OGDEN IMG BI PROCEDURES Final R esult * Diabetes Foot Exam (07/06/2024) Pathologist [facility] Diabetes: Annual Foot Exam Abstracted Historical Provider MD HEALTH MAINTENANCE Final Result * Diabetes Eye Exam (03/15/2024) Pathologist [facility] Diabetes: Annual Retina Eye Exam Abstracted [facility] Provider MD HEALTH MAINTENANCE Final Result * [...] classified as having normal bone density. [facility] Department of Internal Medicine recommends using National [...] beclassified as having normal bone density. [facility] Department of Internal Medicine recommendsusing National Osteoporosis [...] or over-estimation of fracture risk by FRAX. [facility] Alan BERNAL DXA PROCEDURES Final Result * Colonoscopy (07/11/2019) [facility] Colonoscopy No interpretation , abstracted Anatomical Region Laterality Modality Other Historical Provider HEALTH MAINTENANCE Final Result * Hepatitis C Screening (05/17/2013) [facility] Hepatitis C Screening Abstracted Historical Provider HEALTH MAINTENANCE Final Result from Last 3 Months or Most Recently Relevant to Health Maintenance Insurance [employer] MEDICARE Advance Directives Documents on File Type Date Recorded Patient Reconciliation Analyst Expl anation Health Care Decision (hx) 01/28/2019 [...] (hx) 01/26/2019 AD KAPOOR DIRECTIVE Care Teams Gold Charmer Relationship Specialty Start Date End Date Petros Wren PA [address] [place] [id number] PCP - General Internal Medicine 09/25/24
--- OUTSIDE RECORDS SUMMARY | 2025-09-10 12:44 | XMS_ITS | Patient Health Record ---
Author Organization [facility] Address [address] [place] [phone] Care Team Providers Care Lead Web Application Developer Name Role Phone Colin Leiva MD Primary Care Provider Ricardo Gallegos Unavailable [phone] Allergies Allergen (clinical drug ingredient) Drug/Non Drug [...] W/U Status Risk Notes Problem Plantar fasciitis (921101079) Plantar Fasciitis (728.71) Active confirmed Plan Of Treatment Pending Test Test Name Order Date [id number] TENDON SHEATH/LIGAMENT 1 12/16/2010 Insurance Providers Payer Name Payer Address Payer Phone Subscriber Number Group Number Insured Name Patient Relationship to Insured Coverage Start Date Coverage End Date [facility] All Others [address] [place] [address] [phone] [id number] Martha Styles Self - patient is the insured Medical (General) History Medical History History ICD Code mumps measles hypertension headaches/migraines back, hip, knee pain asthma Surgical History Surgery Date(Month/Year) cholecystectomy tubal ligation topaz left foot
--- OUTSIDE RECORDS SUMMARY | 2025-09-10 12:45 | XMS_ITS | Clinical Summary ---
Author Organization [facility] Address [address] [place] [address] Care Team Providers Care Automatic Brine Mixer Operator Name Role Phone Colin Leiva MD Primary Care Provider [phone] Social History Tobacco Use Types Packs/Day Years [...] age to complete this topic Care Teams Automatic Brine Mixer Operator Relationship Specialty Start Date End Date Colin Leiva MD PCP - General Supervisor Final 10/07/18
== END 2025-09-10 10:32 | disposition home or self-care (01) ==
LOC: HO.HMGAL 10:31
PROVIDERS: PCP Physician Assistant Medical; Visit Provider Registered Nurse Emergency
DX: J30.89 Other allergic rhinitis (principal)
CPT/HCPCS: 95117; 95165

== ENCOUNTER 2025-09-13 09:00 | Outpatient (AMB) | payer MEDICARE, SELFPAY ==
--- NOTE | 2025-09-13 09:03 | HO.SPINEOV ---
Intake Visit Reasons: 2nd post op Intake Note: Mrs. Styles is here today for her 2nd post op. Rigger Apprentice Required: No Allergies sulfamethoxazole (From Bactrim) Allergy (Intermediate, Verified 09/13/25 09:06) HIVES trimethoprim (From Bactrim) Allergy (Intermediate, Verified 09/13/25 09:06) HIVES COMBID Allergy (Intermediate, Uncoded 07/05/25 12:04) eye muscles affected Assessment & Plan Assessment & Plan (1) Lumbar back pain with radiculopathy affecting left lower extremity: Code(s): M54.16 - Radiculopathy, lumbar region Category: Medical Plan Operation: Left L5 Laminotomy Martha is a pleasant 69-year-old female who comes in today for her 2nd postoperative visit after having a left-sided L5 laminotomy completed by Dr. Elizabeth on 07/12/25. During her last visit she did report that the pain she had before surgery had largely resolved, aside from some low-grade sciatic type pain that continued. Unfortunately since her last office visit she reports that her pain slowly returned to what it was prior to surgery. She now states that her pain is almost exactly is it was prior to her operation. Given this, the distribution that she describes sounds different than what she initially described to Dr. Elizabeth at her first office visit. She reported that the pain traveled down her left side and radiated into the groin to the outside of her thigh, to the lower leg and to the top of her foot. When describing her pain today she states it starts in her low back shoots into her left posterior buttocks and travels down the back side of her thigh down toward the gastrocnemius. This sounds more like an S1 radiculopathy vs. L5. Clara's accompanied by her to this visit today, and they both asked several questions regarding the postoperative healing course all of which I answered to the best of my ability. No new neurological deficits. The patient ambulates slowly and slightly hunched over with a slightly antalgic gait favoring the right hand side. She rises from seated position by bracing herself on the chair. (-) Bilateral straight leg raise. I would like to send Martha for a set of dynamic lumbar spine x-rays to ensure she has not developed instability as a result of her foraminotomy. I have low overall clinical suspicion of this but it should be ruled out. Assuming that the patient is not unstable, I would like to order a repeat lumbar MRI with gadolinium to evaluate for any continued or new left-sided nerve impingement since her surgery. Maik Elizabeth MD,PhD [facility] Orders: Orders XR lumbar spine 4V min Today Z98.890 - Other specified postprocedural states Coding Level of Care Code Global (03737) Diagnoses Lumbar back pain with radiculopathy affecting left lower extremity M54.16
--- OUTSIDE RECORDS SUMMARY | 2025-09-13 09:41 | XMS_ITS | Patient Health Record ---
Author Organization [facility] Address [address] [place] [phone] Care Team Providers Care Data Analyst Name Role Phone Colin Leiva MD Primary Care Provider Ricardo Gallegos Unavailable [phone] Allergies Allergen (clinical drug ingredient) Drug/Non Drug [...] W/U Status Risk Notes Problem Plantar fasciitis (108040120) Plantar Fasciitis (728.71) Active confirmed Plan Of Treatment Pending Test Test Name Order Date [id number] TENDON SHEATH/LIGAMENT 1 12/16/2010 Insurance Providers Payer Name Payer Address Payer Phone Subscriber Number Group Number Insured Name Patient Relationship to Insured Coverage Start Date Coverage End Date [facility] All Others [address] [place] [address] [phone] [id number] Martha Styles Self - patient is the insured Medical (General) History Medical History History ICD Code mumps measles hypertension headaches/migraines back, hip, knee pain asthma Surgical History Surgery Date(Month/Year) cholecystectomy tubal ligation topaz left foot
--- OUTSIDE RECORDS SUMMARY | 2025-09-13 09:42 | XMS_ITS | Clinical Summary ---
Author Organization [facility] Address [address] [place] [address] Care Team Providers Care Comb Setter Name Role Phone Colin Leiva MD Primary Care Provider [phone] Social History Tobacco Use Types Packs/Day Years [...] age to complete this topic Care Teams Comb Setter Relationship Specialty Start Date End Date Colin Leiva MD PCP - General Roller Machine Operator 10/07/18
--- OUTSIDE RECORDS SUMMARY | 2025-09-13 09:42 | XMS_ITS | Clinical Summary ---
Author Organization [facility] [address] [place] [address] [place] [phone] Phone Care Team Providers Care Negative Retoucher Name Role Phone Petros Wren Primary Care Provider [phone] Allergies Active Allergy Reactions Criticality Noted Date [...] 01/05/2024 Type 2 diabetes mellitus (CMS/HCC V24, CMS/[facility] V 28) 12/14/2023 Hiatal hernia 02/02/2022 Chronic [...] - 06/27/2025 11:59 PM EDT Hospital Encounter [address] [phone] Preoperative cardiovascular examination; Degeneration of intervertebral disc of lumbar region, unspecified whether pain present; Type 2 diabetes mellitus without complication, without long-term current use of insulin (CMS/HCC V24, CMS/HCC V28); Acute pain of left shoulder Discharge Disposition: Home or Self Care 06/27/2025 10:00 AM EDT Consult Adult Medicine [address] [phone] Petros Wren PA Preoperative cardiovascular examination (Primary Dx); Degeneration of intervertebral disc of lumbar region, unspecified whether pain present; Type 2 diabetes mellitus without complication, without long-term current use of insulin ([facility] V24, [facility] V28); Acute pain of left shoulder from [...] artery disease Brother 2 had a stent, [place] Coronary artery disease Father [place] @ 58 Stroke Maternal Grandmother Arthritis Mother [...] care for your loved ones. For example, childcare director or elderly care for an older adult? [...] EST Office Visit Adult Medicine East - [address] [phone] Petros Wren PA [address] [place] [phone] 02/20/2026 10:40 AM EDT Appointment Radiology Department - [address] [phone] 06/07/2026 10:00 AM EDT Office Visit Pulmonology - [address] [place] [phone] Perla Cordero MD [address] [place] [phone] Health Maintenance Due Date Last Done Comments [...] complication, without long-term current use of insulin ([facility] V24, [facility] V28) XR SHOULDER 2+ VIEWS LEFT Routine 06/27/2025 11:14 AM EDT Preoperative cardiovascular examination Degeneration of intervertebral disc of lumbar region, unspecified whether pain present Type 2 diabetes mellitus without complication, without long-term current use of insulin ([facility] V24, [facility] V28) Acute pain of left shoulder LIPID PANEL WITH REFLEX TO DIRECT LDL Routine 06/27/2025 10:55 AM EDT Preoperative cardiovascular examination Degeneration of intervertebral disc of lumbar region, unspecified whether pain present Type 2 diabetes mellitus without complication, without long-term current use of insulin ([facility] V24, [facility] V28) COMPREHENSIVE METABOLIC PANEL Routine 06/27/2025 10:55 AM EDT Preoperative cardiovascular examination Degeneration of intervertebral disc of lumbar region, unspecified whether pain present Type 2 diabetes mellitus without complication, without long-term current use of insulin ([facility] V24, [facility] V28) HEMOGLOBIN A1C Routine 06/27/2025 10:55 AM EDT Preoperative cardiovascular examination Degeneration of intervertebral disc of lumbar region, unspecified whether pain present Type 2 diabetes mellitus without complication, without long-term current use of insulin ([facility] V24, [facility] V28) MICROALBUMIN CREATININE URINE RATIO Routine 03/26/2025 11:15 AM EDT Type 2 diabetes mellitus without complication, without long-term current use of insulin ([facility] V24, [facility] V28) Obstructive [...] Signed Date: 06/27/2025 11:41 ET Workstation ID: [id number] Transcribed By: Self Edit Transcribed Date: 06/27/2025 [...] Signed Date: 06/27/2025 11:41 ET Workstation ID: [id number] Transcribed By: Self Edit Transcribed Date: 06/27/2025 [...] mg/dL LAB CHEMISTRY METHOD 06/27/2025 4:57 PM [facility] Non HDL Chol. (LDL+VLDL) 104 [...] ORDERABLES Brissa l Result Performing Organization Address [facility]/ZIP Co de Phone Number [facility] [address] [place] [address], [place] [phone] * (ABNORMAL) Hemoglobin A1c (06/27/2025 10:55 AM [...] ORDERABLES Brissa l Result Performing Organization Address [facility]/ZIP Co de Phone Number [facility] [address] [place] [address], [place] [phone] * (ABNORMAL) Comprehensive metabolic panel (06/27/2025 10:55 AM EDT) Sodium 138 133 - 145 mmol/L LAB CHEMISTRY METHOD 06/27/2025 4:54 PM EDT [facility] Potassium 4.6 3.5 - 5.5 mmol/L LAB CHEMISTRY METHOD 06/27/2025 4:54 PM EDT [facility] Chloride 100 96 - 110 mmol/L LAB CHEMISTRY METHOD 06/27/2025 4:54 PM [facility] CO2 33(H) 21 - 32 mmol/L LAB CHEMISTRY METHOD 06/27/2025 4:54 PM [facility] Anion Gap 5 3 - 11 LAB CHEMISTRY METHOD 06/27/2025 4:54 PM [facility] Glucose 82 70 - 100 mg/dL LAB CHEMISTRY METHOD 06/27/2025 4:54 PM [facility] BUN 14 5 - 25 mg/dL LAB CHEMISTRY METHOD 06/27/2025 4:54 PM [facility] Creatinine 0.68 0.50 - 1.10 mg/dL LAB CHEMISTRY METHOD 06/27/2025 4:54 PM [facility] eGFR 96 >=60 mL/min/1. 73m2 LAB CHEMISTRY METHOD 06/27/2025 4:54 PM [facility] Comment:Calculation based on the Chronic Kidney Disease Epidemiology Collaboration (CKD-EPI) equation refit without adjustment for race. BUN/Creatinine Ratio 20.6 LAB CHEMISTRY METHOD 06/27/2025 4:54 PM [facility] Calcium 9.2 8.5 - 10.5 mg/dL LAB CHEMISTRY METHOD 06/27/2025 4:54 PM [facility] AST (SGOT) 16 10 - 42 unit/L LAB CHEMISTRY METHOD 06/27/2025 4:54 PM [facility] ALT (SGPT) 31 10 - 60 unit/L LAB CHEMISTRY METHOD 06/27/2025 4:54 PM [facility] Alkaline Phosphatase 150(H) 42 - 121 unit/L LAB CHEMISTRY METHOD 06/27/2025 4:54 PM [facility] Total Protein 7.1 6.0 - 8.0 g/dL LAB CHEMISTRY METHOD 06/27/2025 4:54 PM [facility] Albumin 3.7 3.2 - 5.0 [...] Result [facility] [address] [place] [address], [place] [phone] * (ABNORMAL) Microalbumin creatinine urine ratio (03/26/2025 [...] Result [facility] [address] [place] [address], [place] [phone] * MG Mammo Digital Screening w Akhil bilat (02/16/2025 10:24 AM EDT) Anatomical Region Laterality Modality Breast Bilateral Mammography 02/16/2025 2:20 PM EDT Impressions 02/16/2025 2:25 PM EDT Benign. BI-RADS CATEGORY: 1 - NEGATIVE RECOMMENDATION: Screening bilateral mammogram is recommended in 1 year. Mammo Location: [facility], [address] [place] [address], [id number], . -------- FINAL REPORT -------- Dictated By: Aline Pro Dictated Date: 02/16/2025 14:20 ET Assigned Physician: Aline Pro Reviewed and Electronically Signed By: Aline Pro Signed Date: 02/16/2025 14:25 ET Workstation ID: [id number] Transcribed By: Self Edit Transcribed Date: 02/16/2025 [...] is recommended in 1 year. Mammo Location: [facility], [address] [place] [address], [address], . -------- FINAL REPORT -------- Dictated By: Aline Pro Dictated Date: 02/16/2025 14:20 ET Assigned Physician: Aline Pro Reviewed and Electronically Signed By: Aline Pro Signed Date: 02/16/2025 14:25 ET Workstation ID: [id number] Transcribed By: Self Edit Transcribed Date: 02/16/2025 14:20 ET Petros OGDEN IMG BI PROCEDURES Final R esult * Diabetes Foot Exam (07/06/2024) Pathologist [facility] Diabetes: Annual Foot Exam Abstracted Historical Provider MD HEALTH MAINTENANCE Final Result * Diabetes Eye Exam (03/15/2024) Pathologist [facility] Diabetes: Annual Retina Eye Exam Abstracted [facility] Provider MD HEALTH MAINTENANCE Final Result * [...] classified as having normal bone density. [facility] Department of Internal Medicine recommends using [...] beclassified as having normal bone density. [facility] Department of Internal Medicine recommendsusing National [...] or over-estimation of fracture risk by FRAX. [facility] Alan BERNAL DXA PROCEDURES Final Result * Colonoscopy (07/11/2019) [facility] Colonoscopy No interpretation , abstracted Anatomical Region Laterality Modality Other Historical Provider HEALTH MAINTENANCE Final Result * Hepatitis C Screening (05/17/2013) [facility] Hepatitis C Screening Abstracted Historical Provider HEALTH MAINTENANCE Final Result from Last 3 Months or Most Recently Relevant to Health Maintenance Insurance [employer] MEDICARE Advance Directives Documents on File Type Date Recorded Patient Sign Builder Expl anation Health Care Decision (hx) 01/28/2019 [...] (hx) 01/26/2019 AD KAPOOR DIRECTIVE Care Teams Negative Retoucher Relationship Specialty Start Date End Date Petros Wren PA [address] [place] [phone] PCP - General Internal Medicine 09/25/24
== END 2025-09-13 09:27 | disposition home or self-care (01) ==
LOC: HO.HNS 09:00
PROVIDERS: PCP Physician Assistant Medical; Visit Provider Physician Assistant
DX: M54.16 Radiculopathy, lumbar region (principal)
CPT/HCPCS: 99024

== ENCOUNTER 2025-09-13 09:00 | Outpatient (REF) | payer MEDICARE, SELFPAY ==
--- NOTE | ~2025-09-13 | XR_ITS ---
Examination:CR Xr Lumbar Spine 4v Min Technique: AP, and lateral: Flexion, neutral, and extension view x-rays of the lumbar spine. INDICATION: Z98.890 - Other specified postprocedural states Prior: None FINDINGS: Right upper quadrant clips are likely from cholecystectomy. There are 5 nonrib-bearing lumbar segments. There is 20 degrees levoscoliosis. There are posterior pedicle screws and rods at L2-L5. There are also interbody spacers through those levels. T12-L1: There is moderate disc space narrowing with vacuum phenomena, endplate sclerosis, and osteophytes. L1-L2: There is mild to moderate disc space narrowing endplate sclerosis and osteophytes. L2-L3: Surgically fused. L3-L4: Surgically fused L4-L5: Surgically fused. There is facet sclerosis and osteophytes. L5-S1: There is mild grade 2 anterolisthesis. There is moderate to severe disc space narrowing with endplate sclerosis. There is also facet sclerosis and osteophytes. There is no instability during flexion and extension. XR/XR lumbar spine 4V min IMPRESSION: There is mild levoscoliosis. L2-L5 is surgically fused L5-S1 demonstrates mild grade 2 anterolisthesis. There is no instability during flexion and extension. Electronically signed by: Cristian Montes De Oca MD 09/13/2025 10:47 AM HIRO
== END 2025-09-13 09:01 | disposition home or self-care (01) ==
LOC: HO.HOSX 09:00
PROVIDERS: PCP Physician Assistant Medical; Visit Provider Physician Assistant
DX: Z47.89 Encounter for other orthopedic aftercare (principal); M54.16 Radiculopathy, lumbar region; Z98.890 Other specified postprocedural states
CPT/HCPCS: 72110; 99212

== ENCOUNTER → 2025-09-13 09:30 | Outpatient (BNV) | payer MEDICARE, SELFPAY | PROVIDERS: PCP Physician Assistant Medical; Visit Provider Radiology Diagnostic Radiology | DX: M43.16 Spondylolisthesis, lumbar region (principal); M41.86 Other forms of scoliosis, lumbar region | CPT/HCPCS: 72110 ==

== ENCOUNTER 2025-09-24 10:41 | Outpatient (AMB) | payer MEDICARE, SELFPAY | END 2025-09-24 10:42 | disposition home or self-care (01) | LOC: HO.HMGAL 10:41 | PROVIDERS: PCP Physician Assistant Medical; Visit Provider Registered Nurse Emergency | DX: J30.89 Other allergic rhinitis (principal) | CPT/HCPCS: 95117; 95165 ==

== ENCOUNTER 2025-10-08 10:19 | Outpatient (AMB) | payer MEDICARE, SELFPAY ==
--- OUTSIDE RECORDS SUMMARY | 2025-10-08 12:48 | XMS_ITS | Encounter Summary ---
Author Organization [facility] Address [address] [place] [address] Care Team Providers Care Respiratory Equipment Assistant Name Role Phone Petros Wren Primary Care Provider [phone] Encounter Details Date Type Department Care Team (Late st Contact Info) Description 10/02/2025 Results Follow-Up Adult [address] [phone] Petros Wren PA [address] [place] [phone] Social History Tobacco Use Types Packs/Day Years [...] AM EST documented as of this encounter Plan of Treatment Upcoming Encounters Date Type Department Care Team (Late st Contact Info) Description 02/20/2026 10:40 AM EDT Appointment Radiology Department [address] [phone] 04/03/2026 9:00 AM EDT Office Visit Adult Medicine [address] [phone] Petros Wren, PA [address] [place] [phone] 06/04/2026 10:40 AM EDT Consult Gastroenterology - [address] [facility] [address] [place] [address] Carolina Schafer, COY [address] [facility] [address] [place] [address] 06/07/2026 10:00 AM EDT Office Visit Pulmonology - [place] [address] [facility] [address] [place] [address] Perla Cordero MD [address] [place] [phone] documented as of this encounter Visit Diagnoses Not on filedocumented in this encounter Additional Health Concerns Assessment Noted Time PHQ-9 Depression Total Score: 0 03/26/20 25 10:35 AM EDT documented as of this encounter Care Teams Respiratory Equipment Assistant Relationship Specialty Start Date End Date Petros Wren PA [address] [place] [id number] PCP - General Internal Medicine 09/25/24 documented as of this encounter
--- OUTSIDE RECORDS SUMMARY | 2025-10-08 12:49 | XMS_ITS | Clinical Summary ---
Author Organization [facility] Address [address] [place] [address] Care Team Providers Care Fiscal Accountant Name Role Phone Colin Leiva MD Primary Care Provider [phone] Social History Tobacco Use Types Packs/Day Years [...] age to complete this topic Care Teams Fiscal Accountant Relationship Specialty Start Date End Date Colin Leiva MD PCP - General Adult Basic Education Teacher 10/07/18
--- OUTSIDE RECORDS SUMMARY | 2025-10-08 12:49 | XMS_ITS | Clinical Summary ---
Author Organization [facility] [address] [place] [address] [place] [phone] Phone Care Team Providers Care Rip Saw Operator Name Role Phone Petros Wren Primary Care Provider [phone] Allergies Active Allergy Reactions Criticality Noted Date Comments Other Other 02/10/2006 Combid, Eyes rolled back in head Sulfa (Sulfonamide Antibiotics) Hives Medium 12/17/2006 RASH Sulfamethoxazole-Trimethop rim 06/08/2025 hives Medications MULTIVITAMIN ORAL Take by mouth 1 (one) time each day. With iron Active diclofenac (VOLTAREN) 1 % topical gel Apply 3 g topically 3 (three) times a day. 023 Active fexofenadine (ROXANE) 180 mg tablet Take 1 tablet (180 mg total) by mouth 1 (one) time each day. Active lidocaine (LIDODERM) 5 % patch Place 3 patches on the skin 1 (one) time each day. for 360 days. Apply for no more than 12 hours in any 24 hour period. 023 Active oxyCODONE-acetami nophen (PERCOCET) 10-325 mg per tablet Take 1 tablet by mouth every 8 (eight) hours if needed (Pain). 024 Active triamcinolone (Nasacort) 55 mcg nasal inhaler Administer 1 spray into affected nostril(s) 1 (one) time each day. 017 Active buprenorphine (BUTRANS) 20 mcg/hour Place 1 patch on the skin 1 (one) time per week. Active coenzyme Q-10 30 mg capsule Take [...] mg total) 3 (three) times a day. Active tiZANidine (ZANAFLEX) 4 mg tablet Active tirzepatide (MOUNJARO) 2.5 mg/0.5 mL injection Inject 0.5 mL (2.5 mg total) under the skin every 7 (seven) days. 6 mL 3 Active Additional Information Patient not taking.Reported on 09/18/2025 losartan (COZAAR) 100 mg tablet TAKE 1 TABLET BY MOUTH DAILY 90 tablet 1 Active omeprazole (PriLOSEC) [address] capsule TAKE 1 CAPSULE BY MOUTH DAILY 90 capsule 1 Active albuterol HFA (PROAIR HFA ; PROVENTIL HFA ; VENTOLIN HFA) 90 mcg/actuation inhalerIndication s:Mild persistent asthma, unspecified whether complicated Inhale 2 puffs by mouth every 6 (six) hours if needed for wheezing or shortness of breath. 1 each 2025 Active meclizine (ANTIVERT) 25 mg tablet Take 1 tablet (25 mg total) by mouth 3 (three) times a day if needed for dizziness. 10 tablet Active ondansetron ODT (ZOFRAN-ODT) 8 mg disintegrating tablet Dissolve 1 tablet (8 mg total) on top of the tongue every 8 (eight) hours if needed for nausea or vomiting. 5 tablet Active DULoxetine (CYMBALTA) [address] capsule TAKE 1 CAPSULE(60 MG) BY MOUTH 1 TIME EACH DAY 90 capsule 3 Active montelukast (SINGULAIR) 10 mg tablet TAKE 1 TABLET(10 MG) BY MOUTH 1 TIME EACH DAY 90 tablet 3 Active ferrous sulfate 325 mg (65 mg iron) EC tablet Take 1 tablet (325 mg total) by mouth every other day. Do not crush, chew, or split. 15 each 11 Active indapamide (LOZOL) 2.5 mg tablet TAKE 1 TABLET(2.5 MG) BY MOUTH 1 TIME EACH DAY IN THE MORNING 90 tablet 3 Active indapamide (LOZOL) 2.5 mg tablet Take 1 tablet (2.5 mg total) by mouth 1 (one) time each day in the morning. 90 tablet 3 024 2024 Discontinued montelukast (SINGULAIR) 10 mg tablet Take 1 tablet (10 mg total) by mouth 1 (one) time each day. 90 tablet 3 024 2024 Discontinued DULoxetine (CYMBALTA) [address] capsule Take 1 capsule (60 mg total) by mouth 1 (one) time each day. 90 capsule 3 024 2024 Discontinued predniSONE (DELTASONE) 20 mg tablet Take 2 tablets (40 mg total) by mouth 1 (one) time each day for 5 days. 10 each 025 2024 Active Problems Problem Noted Date Diagnosed Date [...] Encounters Date Type Department Care Team Description 10/02/2025 Results Follow-Up Adult [address] [phone] Petros Wren PA 10/02/2025 Telephone Adult [address] [phone] Petros Wren PA 10/01/2025 11:15 AM EST Lab Draw [address] Anemia, unspecified type; Type 2 diabetes mellitus without complication, without long-term current use of insulin (CMS/HCC V24, CMS/HCC V28); Class 2 obesity; Essential hypertension, benign; Microcytic anemia; Preoperative cardiovascular examination; Degeneration of intervertebral disc of lumbar region, unspecified whether pain present 10/01/2025 10:30 AM EST Office Visit Adult [address] [phone] Petros Wren PA Anemia, unspecified type (Primary Dx); Type 2 diabetes mellitus without complication, without long-term current use of insulin (CMS/HCC V24, CMS/HCC V28); Class 2 obesity; Essential hypertension, benign; Need for prophylactic vaccination and inoculation against influenza; PAC (premature atrial contraction); Obstructive sleep apnea 09/18/2025 11:00 AM EST Office Visit Adult [address] [phone] Sarai Phillips PA Vertigo (Primary Dx); Microcytic anemia; Primary hypertension 09/17/2025 Telephone Adult Medicine [facility] [address] [place] [address] Petros Wren PA 09/16/2025 12:47 PM EST - 09/16/2025 6:[address] [facility] [address] [place] [address] Delfin Lloyd MD Goebel, Mathew, MD Dizziness (Primary Dx) Discharge Disposition: Home or Self Care from [...] artery disease Brother 2 had a stent, [place] Coronary artery disease Father [place] @ 58 Stroke Maternal Grandmother Arthritis Mother [...] for your loved ones. For example, child welfare social worker or elderly care for an older adult? [...] Sign Reading Time Taken Comments Blood Pressure 130/80 10/01/2025 10:30 AM EST unable to reading with machine Pulse 72 10/01/2025 10:30 AM EST Temperature 35.8 C (96.5 F) 10/01/2025 10:30 AM EST Respiratory Rate 16 10/01/2025 10:3 0 AM EST Oxygen Saturation 96% 10/01/2025 10: 30 AM EST Inhaled Oxygen Concentration - - Weight 108 kg (237 lb 3.2 oz) 10/01/2025 10:30 AM EST Height 158.8 cm (5' 2.5 ) 10/01/2025 10 :30 AM EST Body Mass Index 42.69 10/01/2025 10:30 AM EST Plan of Treatment Upcoming Encounters Date Type Department Care Team (Late st Contact Info) Description 02/20/2026 10:40 AM EDT Appointment Radiology Department - [address] [phone] 04/03/2026 9:00 AM EDT Office Visit Adult Medicine [address] [phone] Petros Wren PA [address] [place] [phone] 06/04/2026 10:40 AM EDT Consult Gastroenterology - [address] [facility] 299 [facility] [address] [place] [phone] Carolina Schafer, COY [address] [facility] [address] [place] [address] 06/07/2026 10:00 AM EDT Office Visit Pulmonology - [place] [address] [facility] [address] [place] [phone] Perla Cordero MD [address] [place] [phone] Health Maintenance Due Date Last Done Comments RSV Immunization Adult Patients (1 - Risk 50-74 years 1-dose series) 2007 Medicare Annual Wellness Visit 10/17/2022 Diabetes: Annual Foot Exam 07/06/2025 07/06/2024 COVID-19 Vaccine ( season) 2025 12/08/2021, 07/06/2021, 06/08/2021 Influenza Vaccine (#1) 2025 , 08/05/2022, 09/09/2021, Additional history exists Diabetes: Annual Retina Eye Exam 03/21/2026 03/21/2025, 03/15/2024 Social Influencers of Health Screening 03/26/2026 03/26/2025 Diabetes: Blood Sugar Control Test (HGBA1C) 03/31/2026 10/01/2025, 06/27/2025, 03/26/2025, Additional history exists Falls Risk Assessment 05/29/2026 05/29/2025 Diabetes: Annual Urine Albumin-Creatinine Ratio (uACR) 10/01/2026 10/01/2025, 03/26/2025, 10/26/2024, Additional history exists Diabetes: Annual GFR (Glomerular Filtration Rate) 10/01/2026 10/01/2025, 09/16/2025, 06/27/2025, Additional history exists Hypertension/CHF/CAD Annual BMP Blood Test 10/01/2026 10/01/2025, 09/16/2025, 06/27/2025, Additional history exists Breast Cancer Screening 02/16/2027 02/17/20, 02/07/2024, 01/28/2023, Additional history exists Colorectal Cancer Screening: Colonoscopy 07/11/2029 07/11/2019 DTaP,Tdap,and Td Vaccines (3 - Td or Tdap) 09/30/2030 09/30/2020, 09/15/2010 Cholesterol Screening (Lipid Panel) 10/01/2030 10/01/2025, 06/27/2025, 03/26/2025, Additional history exists Osteoporosis Screening (Bone Density Screening) 01/26/2033 01/26/2023 [...] Procedure Name Priority Date/Time Associated Diagnosis Comments CBC WITH AUTO DIFFERENTIAL Routine 10/01/2025 11:24 AM EST Anemia, unspecified type Type 2 diabetes mellitus without complication, without long-term current use of insulin ([facility] V24, [facility] V28) Class 2 obesity Essential hypertension, benign LIPID PANEL WITH REFLEX TO DIRECT LDL Routine 10/01/2025 11:24 AM EST Anemia, unspecified type Type 2 diabetes mellitus without complication, without long-term current use of insulin ([facility] V24, [facility] V28) Class 2 obesity Essential hypertension, benign MICROALBUMIN CREATININE URINE RATIO Routine 10/01/2025 11:24 AM EST Anemia, unspecified type Type 2 diabetes mellitus without complication, without long-term current use of insulin ([facility] V24, [facility] V28) Class 2 obesity Essential hypertension, benign COMPREHENSIVE METABOLIC PANEL Routine 10/01/2025 11:24 AM EST Anemia, unspecified type Type 2 diabetes mellitus without complication, without long-term current use of insulin (CMS/HCC V24, [facility] V28) Class 2 obesity Essential hypertension, benign HEMOGLOBIN A1C Routine 10/01/2025 11:24 AM EST Anemia, unspecified type Type 2 diabetes mellitus without complication, without long-term current use of insulin ([facility] V24, [facility] V28) Class 2 obesity Essential hypertension, benign CBC AND DIFFERENTIAL Routine 10/01/2025 11:24 AM EST Anemia, unspecified type Type 2 diabetes mellitus without complication, without long-term current use of insulin ([facility] V24, [facility] V28) Class 2 obesity Essential hypertension, benign IRON AND TIBC Routine 10/01/2025 11:24 AM EST Anemia, unspecified type Type 2 diabetes mellitus without complication, without long-term current use of insulin ([facility] V24, [facility] V28) Class 2 obesity Essential hypertension, benign FERRITIN Routine 10/01/2025 11:24 AM EST Anemia, unspecified type Type 2 diabetes mellitus without complication, without long-term current use of insulin ([facility] V24, [facility] V28) Class 2 obesity Essential hypertension, benign ECG ANNOTATED 09/17/2025 URINALYSIS WITH REFLEX MICROSCOPIC STAT 09/16/2025 3:54 PM EST URINALYSIS WITH REFLEX MICROSCOPIC STAT 09/16/2025 3:[address] HEAD WO CONTRAST STAT 09/16/2025 1 :49 PM EST TROPONIN I HIGH SENSITIVITY STAT 09/16/2025 1:32 PM EST BETA HYDROXYBUTYRATE STAT 09/16/2025 1:25 PM EST CBC WITH AUTO DIFFERENTIAL STAT 09/16/2025 1:25 PM EST CBC AND DIFFERENTIAL STAT 09/16/2025 1:25 PM EST BASIC METABOLIC PANEL STAT 09/16/2025 1:25 PM EST MAGNESIUM STAT 09/16/2025 1:25 PM EST ECG 12-LEAD STAT 09/16/2025 1:14 PM EST EXTERNAL XRAY REPORT 09/13/2025 EXTERNAL XRAY REPORT 09/13/2025 EXTERNAL XRAY REPORT 07/12/2025 EXTERNAL XRAY REPORT 07/12/2025 MG MAMMO DIGITAL SCREENING W AKHIL BILAT [...] Recently Relevant to Health Maintenance Results * Lipid panel with reflex to direct LDL (10/01/2025 11:24 AM EST) Cholesterol 186 0 - 200 mg/dL 10/01/2025 4:52 PM [facility] Triglycerides 131 0 - 150 mg/dL 10/01/2025 4:52 PM [facility] HDL 84 >=40 mg/dL 10/01/2025 4:52 PM [facility] LDL Calculated 76 0 - 100 mg/dL 10/01/2025 4:52 PM [facility] Comment:Estimated LDL Calcul ated using equation: Total cholesterol - HDL cholesterol - (Triglycerides/5) VLDL Cholesterol Ramesh 26.2 mg/dL 10/01/2025 4:52 PM [facility] Non HDL Chol. (LDL+VLDL) 102 <145 mg/dL 10/01/2025 4:52 PM [facility] Chol/HDL Ratio 2.2 0.0 - 4.4 10/01/2025 4:52 PM [facility] Blood Venous blood specimen / Unknown Venipuncture / Unknown 10/01/2025 11:24 AM EST 10/01/2025 11:24 AM EST Petros OGDEN LAB BLOOD ORDERABLES Brissa sorensen Result [facility] [address] [place] [address], * (ABNORMAL) CBC auto differential (10/01/2025 11:24 AM EST) Only the most recent of2 resultswithin the time period is included. WBC 7.4 4.8 - 10.8 K/mcL LAB HEMETOLOGY METHOD 10/01/2025 3:42 PM [facility] RBC 4.70 3.80 - 4.80 M/mcL LAB HEMETOLOGY METHOD 10/01/2025 3:42 PM [facility] Hemoglobin 10.8(L) 11.5 - 16.0 g/dL LAB HEMETOLOGY METHOD 10/01/2025 3:42 PM [facility] Hematocrit 36.2 35.0 - 47.0 % LAB HEMETOLOGY METHOD 10/01/2025 3:42 PM [facility] MCV 76.5(L) 79.0 - 98.0 FL LAB HEMETOLOGY METHOD 10/01/2025 3:42 PM [facility] MCH 22.8(L) 27.0 - 32.0 pcg LAB HEMETOLOGY METHOD 10/01/2025 3:42 PM [facility] MCHC 29.8(L) 32.0 - 37.0 g/dL LAB HEMETOLOGY METHOD 10/01/2025 3:42 PM [facility] RDW 16.9(H) 11.0 - 15.0 % LAB HEMETOLOGY METHOD 10/01/2025 3:42 PM [facility] Platelets 454(H) 130 - 400 K/mcL LAB HEMETOLOGY METHOD 10/01/2025 3:42 PM [facility] MPV 9.4 7.0 - 11.0 FL LAB HEMETOLOGY METHOD 10/01/2025 3:42 PM [facility] NRBC 0.0 <1.0 % LAB HEMETOLOGY METHOD 10/01/2025 3:42 PM [facility] NRBC Absolute 0.00 <0.10 K/mcL LAB HEMETOLOGY METHOD 10/01/2025 3:42 PM [facility] Neutrophils Relative 65.8 % LAB HEMETOLOGY METHOD 10/01/2025 3:42 PM [facility] Lymphocytes Relative 21.9 % LAB HEMETOLOGY METHOD 10/01/2025 3:42 PM [facility] Monocytes Relative 9.1 % LAB HEMETOLOGY METHOD 10/01/2025 3:42 PM [facility] Eosinophils Relative 2.0 % LAB HEMETOLOGY METHOD 10/01/2025 3:42 PM [facility] Basophils Relative 0.7 % LAB HEMETOLOGY METHOD 10/01/2025 3:42 PM [facility] Immature Granulocytes Relative 0.5 % LAB HEMETOLOGY METHOD 10/01/2025 3:42 PM [facility] Neutrophils Absolute 4.83 1.50 - 7.00 K/mcL LAB HEMETOLOGY METHOD 10/01/2025 3:42 PM [facility] Lymphocytes Absolute 1.61 1.00 - 5.00 K/mcL LAB HEMETOLOGY METHOD 10/01/2025 3:42 PM [facility] Monocytes Absolute 0.67 0.20 - 1.00 K/mcL LAB HEMETOLOGY METHOD 10/01/2025 3:42 PM [facility] Eosinophils Absolute 0.15 0.00 - 0.50 K/[facility] LAB HEMETOLOGY METHOD 10/01/2025 3:42 PM EST [facility] Basophils Absolute 0.05 0.00 - 0.20 K/[facility] LAB HEMETOLOGY METHOD 10/01/2025 3:42 PM [facility] Immature Granulocytes Absolute 0.04(H) 0.00 - 0.03 K/[facility] LAB HEMETOLOGY METHOD 10/01/2025 3:42 PM [facility] Blood Venous blood specimen / Unknown Venipuncture / Unknown 10/01/2025 11:24 AM EST 10/01/2025 11:24 AM EST Petros OGDEN LAB BLOOD ORDERABLES Brissa l Result Performing Organization Address [facility]/ZIP Co de Phone Number [facility] [address] [place] [address], [place] [phone] * (ABNORMAL) Iron and TIBC (10/01/2025 11:24 AM EST) Iron 35(L) 40 - 150 mcg/dL 10/01/2025 4:41 PM [facility] TIBC 454(H) 250 - 450 mcg/dL 10/01/2025 4:41 PM [facility] Iron Saturation 8(L) 15 - 50 % 4:41 PM [facility] Blood Venous blood specimen / Unknown Venipuncture / Unknown 10/01/2025 11:24 AM EST 10/01/2025 11:24 AM EST Petros OGDEN LAB BLOOD ORDERABLES Brissa l Result Performing Organization Address City/[facility]/ZIP Co de Phone Number [facility] [address] [place] [address], [place] [phone] * Microalbumin creatinine urine ratio (10/01/2025 11:24 AM EST) [facility] Creatinine, Urine 32.0 mg/dL 10/01/2025 4:53 PM [facility] Microalb, Ur 8.0 0.0 - 29.0 mg/L 10/01/2025 4:53 PM [facility] Microalb/Creat Ratio 25 <30 mg/g creat 10/01/2025 4:53 PM [facility] Urine Urine specimen obtained by clean catch procedure / Unknown Non-blood Collection / Unknown 10/01/2025 11:24 AM EST 10/01/2025 11:24 AM EST Petros OGDEN LAB URINE ORDERABLES Brissa l Result [facility] [address] [place] [address], * (ABNORMAL) Hemoglobin A1c (10/01/2025 11:24 AM EST) [facility] Hemoglobin A1C 6.7(H) <6.5 % LAB CHEMISTRY METHOD 10/01/2025 8:13 PM [facility] Mean Bld Glu Estim. 146 mg/dL LAB CHEMISTRY METHOD 10/01/2025 8:13 PM [facility] Blood Venous blood specimen / Unknown Venipuncture / Unknown 10/01/2025 11:24 AM EST 10/01/2025 11:24 AM EST Petros OGDEN LAB BLOOD ORDERABLES Brissa l Result [facility] [address] [place] [address], [place] [phone] * Ferritin (10/01/2025 11:24 AM EST) [facility] Ferritin 7 7 - 271 ng/mL 10/01/2025 4:39 PM [facility] Blood Venous blood specimen / Unknown Venipuncture / Unknown 10/01/2025 11:24 AM EST 10/01/2025 11:24 AM EST Petros OGDEN LAB BLOOD ORDERABLES Brissa l Result [facility] [address] [place] [address], * (ABNORMAL) Comprehensive metabolic panel (10/01/2025 11:24 AM EST) Pathologist [facility] Sodium 142 133 - 145 mmol/L 10/01/2025 4:41 PM [facility] Potassium 3.9 3.5 - 5.5 mmol/L 10/01/2025 4:41 PM [facility] Chloride 98 96 - 110 mmol/L 10/01/2025 4:41 PM [facility] CO2 32 21 - 32 mmol/L 10/01/2025 4:41 PM [facility] Anion Gap 12(H) 3 - 11 10/01/2025 4:41 PM [facility] Glucose 81 70 - 100 mg/dL 10/01/2025 4:41 PM [facility] BUN 11 5 - 25 mg/dL 10/01/2025 4:41 PM [facility] Creatinine 0.72 0.50 - 1.10 mg/dL 10/01/2025 4:41 PM [facility] eGFR 91 >=60 mL/min/1. 73m2 10/01/2025 4:41 PM [facility] Comment:Calculation based on the Chronic Kidney Disease Epidemiology Collaboration (CKD-EPI) equation refit without adjustment for race. BUN/Creatinine Ratio 15.3 10/01/2025 4:41 PM [facility] Calcium 9.2 8.5 - 10.5 mg/dL 10/01/2025 4:41 PM [facility] AST (SGOT) 29 10 - 42 unit/L 10/01/2025 4:41 PM [facility] ALT (SGPT) 29 10 - 60 unit/L 10/01/2025 4:41 PM [facility] Alkaline Phosphatase 176(H) 42 - 121 unit/L 10/01/2025 4:41 PM [facility] Total Protein 7.0 6.0 - 8.0 g/dL 10/01/2025 4:41 PM [facility] Albumin 4.4 3.2 - 5.0 g/dL 10/01/2025 4:41 PM [facility] Total Bilirubin 0.3 0.0 - 1.4 mg/dL 10/01/2025 4:41 PM [facility] Blood Venous blood specimen / Unknown Venipuncture / Unknown 10/01/2025 11:24 AM EST 10/01/2025 11:24 AM EST Petros OGDEN LAB BLOOD ORDERABLES Brissa l Result [facility] [address] [place] [address], * ECG-Annotated (09/17/2025) us Provider Onbase MD ECG ORDERABLES Final Result * (ABNORMAL) Urinalysis with reflex microscopic (09/16/2025 3:54 PM EST) Specific [place] Urine 1.017 1.003 - 1.030 LAB URINALYSIS - AUTOMATED METHOD 09/16/2025 4:47 PM [facility] pH, Urine 7.5 5.0 - 8.0 pH LAB URINALYSIS - AUTOMATED METHOD 09/16/2025 4:47 PM [facility] Leukocytes, Urine Negative Negative LAB URINALYSIS - AUTOMATED METHOD 09/16/2025 4:47 PM [facility] Nitrite, Urine Negative Negative LAB URINALYSIS - AUTOMATED METHOD 09/16/2025 4:47 PM [facility] Protein, Urine 30(A) <=Trace mg/dL LAB URINALYSIS - AUTOMATED METHOD 09/16/2025 4:47 PM [facility] Glucose, Urine Negative Negative mg/dL LAB URINALYSIS - AUTOMATED METHOD 09/16/2025 4:47 PM [facility] Ketones, Urine 15(A) Negative mg/dL LAB URINALYSIS - AUTOMATED METHOD 09/16/2025 4:47 PM [facility] Urobilinogen, Urine 1.0 0.2 - 1.0 mg/dL LAB URINALYSIS - AUTOMATED METHOD 09/16/2025 4:47 PM [facility] Bilirubin, Urine Negative Negative LAB URINALYSIS - AUTOMATED METHOD 09/16/2025 4:47 PM [facility] Blood, Urine Negative Negative LAB URINALYSIS - AUTOMATED METHOD 09/16/2025 4:47 PM [facility] RBC, Urine 4 0 - 4 /HPF LAB URINALYSIS - AUTOMATED METHOD 09/16/2025 4:47 PM [facility] WBC, Urine 4 0 - 4 /HPF LAB URINALYSIS - AUTOMATED METHOD 09/16/2025 4:47 PM [facility] Squamous Epithelial, Urine 10 0 - 60 /LPF LAB URINALYSIS - AUTOMATED METHOD 09/16/2025 4:47 PM [facility] Bacteria, Urine Negative Negative /HPF LAB URINALYSIS - AUTOMATED METHOD 09/16/2025 4:47 PM [facility] Urine Urine specimen obtained by clean catch procedure / Unknown Non-blood Collection / Unknown 09/16/2025 3:54 PM EST 09/16/2025 4:15 PM EST Delfin Lloyd MD LAB URINE ORDERABLES Final Resul t [facility] [address] [place] [address], * CT Head wo Contrast (09/16/2025 1:49 PM EST) Anatomical Region Laterality Modality Head and Neck Computed Tomogra phy 09/16/2025 2:41 PM EST Impressions 09/16/2025 2:42 PM EST NO ACUTE INTRACRANIAL ABNORMALITY. -------- FINAL REPORT -------- Dictated By: Rae Sewell Dictated Date: 09/16/2025 14:41 ET Assigned Physician: Rae Sewell Reviewed and Electronically Signed By: Rae Sewell Signed Date: 09/16/2025 14:42 ET Workstation ID: [id number] Transcribed By: Self Edit Transcribed Date: 09/16/2025 14:41 ET Narrative 09/16/2025 2:42 PM EST PROCEDURE: HEAD CT INDICATION: dizziness TECHNIQUE: CT of the head without intravenous contrast. Multiplanar reformats. The examination was performed utilizing dose reduction techniques. Total DLP 717 COMPARISON: No priors available. FINDINGS: No acute territorial infarct, mass effect, or intracranial hemorrhage. No significant white matter disease No hydrocephalus. Visualized paranasal sinuses are clear. Mastoid air cells are clear. No calvarial fracture. Procedure Note Rae Sewell MD - 09/16/2025 PROCEDURE: HEAD CT INDICATION: dizziness TECHNIQUE: CT of the head without intravenous contrast. Multiplanarreformats. The examination was performed utilizing dose reductiontechniques. Total DLP 717 COMPARISON: No priors available. FINDINGS: No acute territorial infarct, mass effect, or intracranial hemorrhage. No significant white matter disease No hydrocephalus. Visualized paranasal sinuses are clear. Mastoid air cells are clear. No calvarial fracture. IMPRESSION: NO ACUTE INTRACRANIAL ABNORMALITY. -------- FINAL REPORT -------- Dictated By: Rae Sewell Dictated Date: 09/16/2025 14:41 ET Assigned Physician: Rae Sewell Reviewed and Electronically Signed By: Rae Sewell Signed Date: 09/16/2025 14:42 ET Workstation ID: [id number] Transcribed By: Self Edit Transcribed Date: 09/16/2025 14:41 ET us Delfin Lloyd MD IMG CT PROCEDURES Final Result * Troponin I high sensitivity (09/16/2025 1:32 PM EST) High Sensitivity Troponin I 5 <=54 ng/L LAB CHEMISTRY METHOD 09/16/2025 2:05 PM EST [facility] Blood Venous blood specimen / Unknown Venipuncture / Unknown 09/16/2025 1:32 PM EST 09/16/2025 1:40 PM EST Narrative [facility] - 09/16/2025 2:05 PM EST High levels of biotin in samples may falsely decrease hsTroponin values. Use caution when interpreting hsTroponin results in patients taking biotin who exhibit renal impairment (eGFR <60) or in patients taking more than 20 mg/day of biotin. us Delfin Lloyd MD LAB BLOOD ORDERABLES Final Resul t [facility] [address] [place] [address], * (ABNORMAL) Beta hydroxybutyrate (09/16/2025 1:25 PM EST) Beta-Hydroxybu tyrate 5.9(H) 0.2 - 2.8 mg/dL LAB CHEMISTRY METHOD 09/16/2025 2:05 PM EST [facility] Blood Venous blood specimen / Unknown Venipuncture / Unknown 09/16/2025 1:25 PM EST 09/16/2025 1:42 PM EST us Delfin Lloyd MD LAB BLOOD ORDERABLES Final Resul t Performing Organization Address City/[facility]/ZIP Co de Phone Number [facility] [address] [place] [address], [place] [phone] * Magnesium (09/16/2025 1:25 PM EST) Magnesium 2.4 1.9 - 2.6 mg/dL LAB CHEMISTRY METHOD 09/16/2025 2:05 PM [facility] Blood Venous blood specimen / Unknown Venipuncture / Unknown 09/16/2025 1:25 PM EST 09/16/2025 1:42 PM EST us Delfin Lloyd MD LAB BLOOD ORDERABLES Final Resul t Performing Organization Address [facility]/ZIP Co de Phone Number [facility] [address] [place] [address], [place] [phone] * (ABNORMAL) Basic Metabolic Panel (BMP) (09/16/2025 1:25 PM EST) Sodium 138 133 - 145 mmol/L LAB CHEMISTRY METHOD 09/16/2025 2:05 PM [facility] Potassium 3.5 3.5 - 5.5 mmol/L LAB CHEMISTRY METHOD 09/16/2025 2:05 PM [facility] Chloride 101 96 - 110 mmol/L LAB CHEMISTRY METHOD 09/16/2025 2:05 PM [facility] CO2 32 21 - 32 mmol/L LAB CHEMISTRY METHOD 09/16/2025 2:05 PM [facility] Anion Gap 5 3 - 11 LAB CHEMISTRY METHOD 09/16/2025 2:05 PM [facility] Glucose 123(H) 70 - 100 mg/dL LAB CHEMISTRY METHOD 09/16/2025 2:05 PM [facility] BUN 9 5 - 25 mg/dL LAB CHEMISTRY METHOD 09/16/2025 2:05 PM EST [facility] Creatinine 0.58 0.50 - 1.10 mg/dL LAB CHEMISTRY METHOD 09/16/2025 2:05 PM EST [facility] eGFR 99 >=60 mL/min/1. 73m2 LAB CHEMISTRY METHOD 09/16/2025 2:05 PM EST [facility] Comment:Calculation based on the Chronic Kidney Disease Epidemiology Collaboration (CKD-EPI) equation refit without adjustment for race. BUN/Creatinine Ratio 15.5 LAB CHEMISTRY METHOD 09/16/2025 2:05 PM EST [facility] Calcium 8.8 8.5 - 10.5 mg/dL LAB CHEMISTRY METHOD 09/16/2025 2:05 PM EST [facility] Blood Venous blood specimen / Unknown Venipuncture / Unknown 09/16/2025 1:25 PM EST 09/16/2025 1:42 PM EST us Delfin Lloyd MD LAB BLOOD ORDERABLES Final Resul t [facility] [address] [place] [address], * 12-Lead ECG (09/16/2025 1:14 PM EST) Ventricular Rate ECG 81 BPM GEMUSE Atrial Rate 81 BPM GEMUSE P-R Interval 150 ms GEMUSE QRS Duration 72 ms GEMUSE Q-T Interval 400 ms GEMUSE QTc 464 ms GEMUSE P Wave [place] 90 degrees GEMUSE R [place] -12 degrees GEMUSE T [place] 36 degrees GEMUSE ECG Interpretation Sinus rhythm with marked sinus arrhythmia with ventricular escape complexes Minimal voltage criteria for LVH, may be normal variant Possible Septal infarct (cited on or before 04-JUL-2024) Abnormal ECG When compared with ECG of 04-JUL-2024 06:36, Premature atrial complexes are no longer Present Confirmed by LUIS CAMPOS ([id number]) on 09/16/2025 5:12:35 PM GEMUSE 09/16/2025 1:14 PM EST 09/16/2025 5:12 PM EST Delfin Lloyd MD ECG ORDERABLES Final Result GEMUSE * External Xray Report (09/13/2025) Only the most recent of4 resultswithin the time period is included. Anatomical Region Laterality Modality Radiographic Barbara ging us Provider [facility] IMG XR PROCEDURES Final Result * MG Mammo Digital Screening w Akhil bilat (02/16/2025 10:24 AM EDT) Anatomical Region Laterality Modality Breast Bilateral Mammography 02/16/2025 2:20 PM EDT Impressions 02/16/2025 2:25 PM EDT Benign. BI-RADS CATEGORY: 1 - NEGATIVE RECOMMENDATION: Screening bilateral mammogram is recommended in 1 year. Mammo Location: [facility], [address] [place] [address], [address], . -------- FINAL REPORT -------- Dictated By: Aline Pro Dictated Date: 02/16/2025 14:20 ET Assigned Physician: Aline Pro Reviewed and Electronically Signed By: Aline Pro Signed Date: 02/16/2025 14:25 ET Workstation ID: [id number] Transcribed By: Self Edit Transcribed Date: 02/16/2025 [...] is recommended in 1 year. Mammo Location: [facility], [address] [place] [address], [address], . -------- FINAL REPORT -------- Dictated By: Aline Pro Dictated Date: 02/16/2025 14:20 ET Assigned Physician: Aline Pro Reviewed and Electronically Signed By: Aline Pro Signed Date: 02/16/2025 14:25 ET Workstation ID: [id number] Transcribed By: Self Edit Transcribed Date: 02/16/2025 14:20 ET Petros OGDEN IMG BI PROCEDURES Final R esult * Diabetes Foot Exam (07/06/2024) [facility] Diabetes: Annual Foot Exam Abstracted Historical Provider HEALTH MAINTENANCE Final Result * Diabetes Eye Exam (03/15/2024) [facility] Diabetes: Annual Retina Eye Exam Abstracted Historical Provider HEALTH MAINTENANCE Final Result * DXA BONE [...] classified as having normal bone density. The [facility] Department of Internal Medicine recommends using [...] beclassified as having normal bone density. The [facility] Department of Internal Medicine recommendsusing National [...] DXA PROCEDURES Final Result * Colonoscopy (07/11/2019) Pathologist On license of [facility] Colonoscopy No interpretation , abstracted Anatomical Region Laterality Modality Other Historical Provider HEALTH MAINTENANCE Final Result * Hepatitis C Screening (05/17/2013) [facility] Hepatitis C Screening Abstracted Historical Provider HEALTH MAINTENANCE Final Result from Last 3 Months or Most Recently Relevant to Health Maintenance Insurance [employer] MEDICARE Advance Directives Documents on File Type Date Recorded Patient Operations And Maintenance Specialist Expl anation Health Care Decision (hx) 01/28/2019 [...] (hx) 01/26/2019 AD KAPOOR DIRECTIVE Care Teams Rip Saw Operator Relationship Specialty Start Date End Date Petros Wren PA [address] [place] [address] PCP - General Internal Medicine 09/25/24
== END 2025-10-08 10:19 | disposition home or self-care (01) ==
LOC: HO.HMGAL 10:19
PROVIDERS: PCP Physician Assistant Medical; Visit Provider Registered Nurse Emergency
DX: J30.89 Other allergic rhinitis (principal)
CPT/HCPCS: 95117; 95165

== ENCOUNTER → 2025-10-15 13:33 | Outpatient (BNV) | payer MEDICARE, SELFPAY | PROVIDERS: PCP Physician Assistant Medical; Visit Provider Radiology Diagnostic Radiology | DX: M47.27 Other spondylosis with radiculopathy, lumbosacral region (principal); M99.73 Connective tissue and disc stenosis of intervertebral foramina of lumbar region | CPT/HCPCS: 72158 ==

== ENCOUNTER 2025-10-15 13:38 | Outpatient (REF) | payer MEDICARE, SELFPAY ==
--- NOTE | ~2025-10-15 | MR_ITS ---
EXAM: MRI lumbar spine without and with IV contrast TECHNIQUE: Multiplanar multisequence imaging was performed through the lumbar spine without contrast. INDICATION: M54.16 - Radiculopathy, lumbar region CONTRAST: 10 mL Gadavist PRIOR: X-ray on September 13, 2025 and outside MRI performed January 08, 2025 20 [facility] FINDINGS: 5 non-rib bearing lumbar segments on recent x-ray. There is 17 degrees levoscoliosis. Posterior pedicle screws and rods are present between L2-L5 There are cages with interbody bone graft at L2-3, L3-4, and L4-5. Modic 2 endplate changes are present between T12-L1 and L5-S1. Enhancing soft tissues tissue scar is seen extending posteriorly from L5-S1, new since the prior. The termination of conus medullaris is within normal limits at the level of L1. T12-L1: There is moderate loss of disc height and degenerative endplate changes with circumferential broad-based disc bulge and mild facet arthropathy not resulting in spinal stenosis or foraminal narrowing. L1-L2: There is moderate loss of disc height and endplate Schmorl's node within L1. There is circumferential broad-based disc bulge. There is mild to moderate facet arthropathy. There is no spinal stenosis or foraminal narrowing. Unchanged. L2-L3: Surgically fused. No spinal stenosis or foraminal narrowing. Mild facet arthropathy. No change. L3-L4: Surgically fused. Epidural fat flattens the thecal sac on the left side. Otherwise, there is no spinal stenosis. Disc and osteophytes mildly narrow the neural foramina. L4-L5: Surgically fused. There is moderate facet arthropathy. There is no spinal stenosis. Epidural fat mildly narrows bilateral subarticular zones. Endplate osteophytes minimally narrow the left greater than right neural foramina. L5-S1: Left hemilaminectomy has been performed since the prior study. Circumferential broad-based disc bulge and mild grade 1 anterolisthesis remains present. There is severe facet arthropathy with left greater than right facet joint effusions. There is also likely a central disc extrusion. There is subtle narrowing of the left greater than right subarticular zones. There is stable mild to moderate right foraminal narrowing. Left neural foramen is obscured by metal artifact. There is possible persistent moderate to severe foraminal narrowing. MR/MR lumbar spine wo/w con IMPRESSION: L5-S1: New since prior, left hemilaminectomy has been performed. There is enhancement of the surgical tract/scar. The left neural foramen is moderately obscured by metal artifact. However, there is probably persistent moderate to severe left foraminal narrowing that is not optimally demonstrated. Disc and osteophytes also contribute to mild to moderate right foraminal narrowing. There is severe facet osteoarthritis with facet joint effusions, left greater than right. Postsurgical changes with posterior lumbar fusion L2-L5 with interbody cages and bone graft at L2-3, L3-4, and L4-5. Those levels appear similar to the prior. Electronically signed by: Cristian Montes De Oca MD 10/15/2025 03:07 PM HIRO MARTINEZ
--- OUTSIDE RECORDS SUMMARY | 2025-10-15 22:24 | XMS_ITS | Clinical Summary ---
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
--- OUTSIDE RECORDS SUMMARY | 2025-10-15 22:24 | XMS_ITS | Clinical Summary ---
Author Organization [facility] [address] [place] [address] [place] [phone] Phone Care Team Providers Care Campus Recruiter Name Role Phone Petros Wren Primary Care Provider [phone] Allergies Active Allergy Reactions Criticality Noted Date [...] right hand 01/05/2024 Type 2 diabetes mellitus 12/14/2023 Hiatal hernia 02/02/2022 Chronic right SI [...] Care Team Description 10/02/2025 Results Follow-Up Adult [address] [phone] Petros Wren PA 10/02/2025 Telephone Adult [address] [phone] Petros Wren PA 10/01/2025 11:15 AM EST Lab Draw [address] Anemia, unspecified type; Type 2 diabetes mellitus without complication, without long-term current use of insulin (CMS/HCC V24, CMS/HCC V28); Class 2 obesity; Essential hypertension, benign; Microcytic anemia; Preoperative cardiovascular examination; Degeneration of intervertebral disc of lumbar region, unspecified whether pain present 10/01/2025 10:30 AM EST Office Visit Adult [address] [phone] Petros Wren PA Anemia, unspecified type (Primary Dx); Type 2 diabetes mellitus without complication, without long-term current use of insulin (CMS/HCC V24, CMS/HCC V28); Class 2 obesity; Essential hypertension, benign; Need for prophylactic vaccination and inoculation against influenza; PAC (premature atrial contraction); Obstructive sleep apnea 09/18/2025 11:00 AM EST Office Visit Adult [address] [phone] Sarai Phillips PA Vertigo (Primary Dx); Microcytic anemia; Primary hypertension 09/17/2025 Telephone Adult [address] [place] [address] Petros Wren PA 09/16/2025 12:47 PM EST - 09/16/2025 6:00 PM EST [facility] Emergency [address] [place] [address] Delfin Lloyd MD Goebel, Mathew, MD Dizziness [...] artery disease Brother 2 had a stent, [place] Coronary artery disease Father [place] @ 58 Stroke Maternal Grandmother Arthritis Mother [...] care for your loved ones. For example, rn child or elderly care for an older adult? [...] 10:40 AM EDT Appointment Radiology Department - [address] [phone] 04/03/2026 9:00 AM EDT Office Visit Adult Medicine East [address] [phone] Petros Wren PA [address] [place] [phone] 06/04/2026 10:40 AM EDT Consult Gastroenterology - 299 [facility] 299 [facility] [address] [place] [address] Carolina Schafer NP 299 [facility] [address] [place] [address] 06/07/2026 10:00 AM EDT Office Visit Pulmonology - [place] 175 [facility] [address] [place] [phone] Perla Cordero MD [address] [place] [phone] Health Maintenance Due Date Last Done Comments [...] without long-term current use of insulin ([facility] V24, [facility] V28) Class 2 obesity Essential hypertension, benign LIPID PANEL WITH REFLEX TO DIRECT LDL Routine 10/01/2025 11:24 AM EST Anemia, unspecified type Type 2 diabetes mellitus without complication, without long-term current use of insulin ([facility] V24, [facility] V28) Class 2 obesity Essential hypertension, benign MICROALBUMIN CREATININE URINE RATIO Routine 10/01/2025 11:24 AM EST Anemia, unspecified type Type 2 diabetes mellitus without complication, without long-term current use of insulin ([facility] V24, [facility] V28) Class 2 obesity Essential hypertension, benign COMPREHENSIVE METABOLIC PANEL Routine 10/01/2025 11:24 AM EST Anemia, unspecified type Type 2 diabetes mellitus without complication, without long-term current use of insulin ([facility] V24, [facility] V28) Class 2 obesity Essential hypertension, benign HEMOGLOBIN A1C Routine 10/01/2025 11:24 AM EST Anemia, unspecified type Type 2 diabetes mellitus without complication, without long-term current use of insulin ([facility] V24, [facility] V28) Class 2 obesity Essential hypertension, benign CBC AND DIFFERENTIAL Routine 10/01/2025 11:24 AM EST Anemia, unspecified type Type 2 diabetes mellitus without complication, without long-term current use of insulin ([facility] V24, [facility] V28) Class 2 obesity Essential hypertension, benign IRON AND TIBC Routine 10/01/2025 11:24 AM EST Anemia, unspecified type Type 2 diabetes mellitus without complication, without long-term current use of insulin ([facility] V24, [facility] V28) Class 2 obesity Essential hypertension, benign FERRITIN Routine 10/01/2025 11:24 AM EST Anemia, unspecified type Type 2 diabetes mellitus without complication, without long-term current use of insulin ([facility] V24, [facility] V28) Class 2 obesity Essential hypertension, [...] XRAY REPORT 09/13/2025 EXTERNAL XRAY REPORT 09/13/2025 MG MAMMO DIGITAL SCREENING W AKHIL BILAT [...] 11:24 AM EST 10/01/2025 11:24 AM EST us Petros OGDEN LAB BLOOD ORDERABLES Brissa sorensen Result [facility] [address] [place] [address], [place] [phone] * (ABNORMAL) CBC auto differential (10/01/2025 11:24 [...] LAB Eosinophils Absolute 0.15 0.00 - 0.50 K/mcL LAB HEMETOLOGY METHOD 10/01/2025 3:42 PM EST [facility] Basophils Absolute 0.05 0.00 - 0.20 K/mcL LAB HEMETOLOGY METHOD 10/01/2025 3:42 PM EST [facility] Immature Granulocytes Absolute 0.04(H) 0.00 - 0.03 K/mcL LAB HEMETOLOGY METHOD 10/01/2025 3:42 PM [facility] Blood Venous blood specimen / Unknown Venipuncture / Unknown 10/01/2025 11:24 AM EST 10/01/2025 11:24 AM EST Petros OGDEN LAB BLOOD ORDERABLES Brissa l Result Performing Organization Address [facility]/ZIP Co de Phone Number [facility] [address] [place] [address], [place] [phone] * (ABNORMAL) Iron and TIBC (10/01/2025 11:24 [...] OGDEN LAB BLOOD ORDERABLES Brissa l Result [facility] [address] [place] [address], [place] [phone] * Microalbumin creatinine urine ratio (10/01/2025 11:24 AM EST) Creatinine, Urine 32.0 mg/dL 10/01/2025 4:53 PM [...] ORDERABLES Brissa l Result Performing Organization Address City/[facility]/ZIP Co de Phone Number [facility] [address] [place] [address], [place] [phone] * (ABNORMAL) Hemoglobin A1c (10/01/2025 11:24 AM EST) Hemoglobin A1C 6.7(H) <6.5 % LAB CHEMISTRY METHOD 10/01/2025 8:13 PM [facility] Mean Bld Glu Estim. 146 mg/dL LAB CHEMISTRY METHOD 10/01/2025 8:13 PM [facility] Blood Venous blood specimen / Unknown Venipuncture / Unknown 10/01/2025 11:24 AM EST 10/01/2025 11:24 AM EST Petros OGDEN LAB BLOOD ORDERABLES Brissa l Result [facility] [address] [place] [address], [place] [phone] * Ferritin (10/01/2025 11:24 AM EST) Ferritin 7 7 - 271 ng/mL 10/01/2025 4:39 PM EST [facility] Blood Venous blood specimen / Unknown Venipuncture / Unknown 10/01/2025 11:24 AM EST 10/01/2025 11:24 AM EST Petros OGDEN LAB BLOOD ORDERABLES Brissa edu Result [facility] [address] [place] [address], * (ABNORMAL) Comprehensive metabolic panel (10/01/2025 11:24 AM EST) Sodium 142 133 - 145 mmol/L 10/01/2025 [...] OGDEN LAB BLOOD ORDERABLES Brissa l Result [facility] [address] [place] [address], * ECG-Annotated (09/17/2025) Provider Onbase MD ECG ORDERABLES Final Result * (ABNORMAL) Urinalysis with reflex microscopic (09/16/2025 3:54 PM EST) Specific [place] Urine 1.017 1.003 - 1.030 LAB URINALYSIS [...] 3:54 PM EST 09/16/2025 4:15 PM EST us Delfin Lloyd MD LAB URINE ORDERABLES Final Resul t [facility] [address] [place] [address], [place] [phone] * CT Head wo Contrast (09/16/2025 1:49 PM EST) Anatomical Region Laterality Modality Head and Neck Computed Tomogra phy 09/16/2025 2:41 PM EST Impressions 09/16/2025 2:42 PM EST NO ACUTE INTRACRANIAL ABNORMALITY. -------- FINAL REPORT -------- Dictated By: Rae Sewell Dictated Date: 09/16/2025 14:41 ET Assigned Physician: Rae Sewell Reviewed and Electronically Signed By: Rae Sewell Signed Date: 09/16/2025 14:42 ET Workstation ID: [id number] Transcribed By: Self Edit Transcribed Date: 09/16/2025 [...] Signed Date: 09/16/2025 14:42 ET Workstation ID: [id number] Transcribed By: Self Edit Transcribed Date: 09/16/2025 14:41 ET us Delfin Lloyd MD IMG CT PROCEDURES Final Result * Troponin I high sensitivity (09/16/2025 1:32 PM EST) [facility] High Sensitivity Troponin I 5 <=54 ng/L LAB CHEMISTRY METHOD 09/16/2025 2:05 PM EST [facility] Blood Venous blood specimen / Unknown Venipuncture / Unknown 09/16/2025 1:32 PM EST 09/16/2025 1:40 PM EST Narrative [facility] - 09/16/2025 2:05 PM EST High levels of biotin in samples may falsely decrease hsTroponin values. Use caution when interpreting hsTroponin results in patients taking biotin who exhibit renal impairment (eGFR <60) or in patients taking more than 20 mg/day of biotin. us Delfin Lloyd MD LAB BLOOD ORDERABLES Final Resul t Performing Organization Address City/[facility] Co de Phone Number [facility] [address] [place] [address], * (ABNORMAL) Beta hydroxybutyrate (09/16/2025 1:25 PM EST) [facility] Beta-Hydroxybu tyrate 5.9(H) 0.2 - 2.8 mg/dL LAB CHEMISTRY METHOD 09/16/2025 2:05 PM EST [facility] Blood Venous blood specimen / Unknown Venipuncture / Unknown 09/16/2025 1:25 PM EST 09/16/2025 1:42 PM EST us Delfin Lloyd MD LAB BLOOD ORDERABLES Final Resul t [facility] [address] [place] [address], [place] [phone] * Magnesium (09/16/2025 1:25 PM EST) [facility] Magnesium 2.4 1.9 - 2.6 mg/dL LAB CHEMISTRY METHOD 09/16/2025 2:05 PM EST [facility] Blood Venous blood specimen / Unknown Venipuncture / Unknown 09/16/2025 1:25 PM EST 09/16/2025 1:42 PM EST Delfin Lloyd MD LAB BLOOD ORDERABLES Final Resul t [facility] [address] [place] [address], [place] [phone] * (ABNORMAL) Basic Metabolic Panel (BMP) (09/16/2025 1:25 PM EST) [facility] Sodium 138 133 - 145 mmol/L [...] 09/16/2025 2:05 PM [facility] Creatinine 0.58 0.50 - 1.10 mg/dL LAB CHEMISTRY METHOD 09/16/2025 2:05 PM EST [facility] eGFR 99 >=60 mL/min/1. 73m2 LAB CHEMISTRY METHOD 09/16/2025 2:05 PM EST [facility] Comment:Calculation based on the Chronic Kidney Disease Epidemiology Collaboration (CKD-EPI) equation refit without adjustment for race. BUN/Creatinine Ratio 15.5 LAB CHEMISTRY METHOD 09/16/2025 2:05 PM EST [facility] Calcium 8.8 8.5 - 10.5 mg/dL LAB CHEMISTRY METHOD 09/16/2025 2:05 PM EST [facility] Blood Venous blood specimen / Unknown Venipuncture / Unknown 09/16/2025 1:25 PM EST 09/16/2025 1:42 PM EST us Delfin Lloyd MD LAB BLOOD ORDERABLES Final Resul t [facility] [address] [place] [address], [place] [phone] * 12-Lead ECG (09/16/2025 1:14 PM EST) Ventricular Rate ECG 81 BPM GEMUSE Atrial Rate 81 BPM GEMUSE P-R Interval 150 ms GEMUSE QRS Duration 72 ms GEMUSE Q-T Interval 400 ms GEMUSE QTc 464 ms GEMUSE P Wave [place] 90 degrees GEMUSE R [place] -12 degrees GEMUSE T [place] 36 degrees GEMUSE ECG Interpretation Sinus rhythm [...] 1:14 PM EST 09/16/2025 5:12 PM EST us Delfin Lloyd MD ECG ORDERABLES Final Result GEMUSE * External Xray Report (09/13/2025) Only the most recent of2 resultswithin the [...] is recommended in 1 year. Mammo Location: [place] [facility], [address] [place] [address], [id number], . -------- FINAL REPORT -------- Dictated By: Aline Pro Dictated Date: 02/16/2025 14:20 ET Assigned Physician: Aline Pro Reviewed and Electronically Signed By: Aline Pro Signed Date: 02/16/2025 14:25 ET Workstation ID: [id number] Transcribed By: Self Edit Transcribed Date: 02/16/2025 [...] is recommended in 1 year. Mammo Location: [place] [facility], [address] [place] [address], [address], . -------- FINAL REPORT -------- Dictated By: Aline Pro Dictated Date: 02/16/2025 14:20 ET Assigned Physician: Aline Pro Reviewed and Electronically Signed By: Aline Pro Signed Date: 02/16/2025 14:25 ET Workstation ID: [id number] Transcribed By: Self Edit Transcribed Date: 02/16/2025 14:20 ET Petros OGDEN IMG BI PROCEDURES Final R esult * Diabetes Foot Exam (07/06/2024) Pathologist [facility] Diabetes: Annual Foot Exam Abstracted Historical Provider HEALTH MAINTENANCE Final Result * Diabetes Eye Exam (03/15/2024) Pathologist [facility] Diabetes: Annual Retina Eye Exam Abstracted Historical [...] classified as having normal bone density. [facility] Department of Internal Medicine recommends [...] beclassified as having normal bone density. [facility] Department of Internal Medicine recommendsusing [...] DXA PROCEDURES Final Result * Colonoscopy (07/11/2019) [facility] Colonoscopy No interpretation , abstracted Anatomical Region Laterality Modality Other Historical Provider HEALTH MAINTENANCE Final Result * Hepatitis C Screening (05/17/2013) [facility] Hepatitis C Screening Abstracted [facility] Provider HEALTH MAINTENANCE Final Result from Last 3 Months or Most Recently Relevant to Health Maintenance Insurance [employer] MEDICARE Advance Directives Documents on File Type Date Recorded Patient Grips Expl anation Health Care Decision (hx) 01/28/2019 [...] (hx) 01/26/2019 AD KAPOOR DIRECTIVE Care Teams Campus Recruiter Relationship Specialty Start Date End Date Petros Wren PA [address] [place] [phone] PCP - General Internal Medicine 09/25/24
--- OUTSIDE RECORDS SUMMARY | 2025-10-15 22:24 | XMS_ITS | Encounter Summary ---
Author Organization [facility] Address [address] [place] [address] Care Team Providers Care Neuro Psych Sales Specialist Name Role Phone Petros Wren Primary Care Provider [phone] Encounter Details Date Type Department Care Team (Late st Contact Info) Description 10/02/2025 Results Follow-Up Adult [address] [phone] Petros Wren PA [address] [place] [phone] Social History Tobacco Use Types Packs/Day Years [...] for your loved ones. For example, child development instructor or elderly care for an older adult? [...] 02/20/2026 10:40 AM EDT Appointment Radiology Department [address] [phone] 04/03/2026 9:00 AM EDT Office Visit Adult Medicine [address] [phone] Petros Wren, PA [address] [place] [phone] 06/04/2026 10:40 AM EDT Consult Gastroenterology - [address] [facility] [address] [place] [address] Carolina Schafer, COY 299 [facility] [address] [place] [address] 06/07/2026 10:00 AM EDT Office Visit Pulmonology - [place] 175 [facility] [address] [place] [address] Perla Cordero MD [address] [place] [phone] documented as of this encounter Visit Diagnoses Not on filedocumented in this encounter Additional Health Concerns Assessment Noted Time PHQ-9 Depression Total Score: 0 03/26/20 25 10:35 AM EDT documented as of this encounter Care Teams Neuro Psych Sales Specialist Relationship Specialty Start Date End Date Petros Wren PA [address] [place] [phone] PCP - General Internal Medicine 09/25/24 documented as of this encounter
== END 2025-10-15 13:39 | disposition home or self-care (01) ==
LOC: HO.MRI 13:38
PROVIDERS: PCP Physician Assistant Medical; Visit Provider Physician Assistant
DX: M54.16 Radiculopathy, lumbar region (principal)
CPT/HCPCS: 72158; A9585

== ENCOUNTER 2025-10-22 11:35 | Outpatient (AMB) | payer MEDICARE, SELFPAY | END 2025-10-22 11:36 | disposition home or self-care (01) | LOC: HO.HMGAL 11:35 | PROVIDERS: PCP Physician Assistant Medical; Visit Provider Registered Nurse Emergency | DX: J30.89 Other allergic rhinitis (principal) | CPT/HCPCS: 95117; 95165 ==

== ENCOUNTER 2025-10-23 09:52 | Outpatient (AMB) | payer MEDICARE, SELFPAY ==
--- NOTE | 2025-10-23 09:56 | A.PHYSOV ---
Vital Signs 10/23/25 09:57 Height 5 ft 1 in Weight 237 lb BMI 44.8 Intake Visit Reasons: 3M FUV + LEFT SHOULDER INJECTION Intake Note: Patient is in a 70 year old female in office for a medication management visit. Application Spec Required: No Allergies sulfamethoxazole (From Bactrim) Allergy (Intermediate, Verified 10/23/25 09:57) HIVES trimethoprim (From Bactrim) Allergy (Intermediate, Verified 10/23/25 09:57) HIVES COMBID Allergy (Intermediate, Uncoded 07/05/25 12:04) eye muscles affected HPI Comments Details: History of Present Illness The patient is a 70 year old female presenting for a follow-up visit for chronic neck and lower back pain. She has a history of a posterior fusion from L2 through L5 and reports a positive shopping cart sign. She experiences bilateral lumbar radicular symptoms, which are sometimes worse on the left side. Her pain has been managed with propranolol patches, immediate-release oxycodone for breakthrough pain, and pregabalin for the neuropathic component of her pain. She also uses lidocaine patches, applying two on the left side and one on the right. She recently underwent a left L5-S1 foraminotomy on July 12, 2025, but she feels that the procedure was not effective. She continues to experience sciatic nerve pain that radiates down her leg, which she had prior to the surgery as well. Additionally, she has a history of left shoulder pain with overhead activities, lifting, and carrying; X-rays were consistent with calcific tendinitis. A lumbar MRI performed on October 15 revealed a central disc extrusion. She has a follow-up appointment scheduled with Dr. Donovan's PA, Maik Wiseman, in the beginning of November 2025. Pain Description - Location: The patient reports chronic neck and lower back pain. - Radiation: She experiences bilateral lumbar radicular symptoms, which are sometimes worse on the left side. - Character: The sciatic pain is described as a terrible ache. - Timing: The radicular nerve pain is intermittent and resolves quickly. - Exacerbating Factors: She reports a positive shopping cart sign. - Associated Symptoms: She has associated pain in her left shoulder with overhead activities, lifting, and carrying. - Additional Details: Pain is exacerbated when sitting on the edge of the bed and with movement, such as getting in and out of bed. Results - Imaging: - A lumbar MRI from October 15 shows postsurgical changes, a central disc extrusion, and a residual extruded disc. - Previous X-rays of the left shoulder were consistent with calcific tendinitis. [facility] [place] Medical History Pre-diabetes Asthma PAC (premature atrial contraction) Hiatal hernia Arthritis Coccydynia Sacroiliac joint dysfunction of left side Sacroiliac joint dysfunction of right side Back pain Sleep apnea Arrhythmia GERD (gastroesophageal reflux disease) HTN (hypertension) Sacroiliitis Chronic pain syndrome Spondylosis Postlaminectomy syndrome of lumbar region Surgical History (Updated 10/23/25 @ 10:02 by Miriam Blevins MA) History of laminotomy History of esophagogastroduodenoscopy (EGD) Hx of elbow surgery History of surgery Hx of cholecystectomy H/O colonoscopy History of back surgery Hx of foot surgery Social History Household Members: Spouse Are you a primary farm or ranch animal caretaker to a significant other at home: No Do you presently have visiting nurse or other home services: No Alcohol intake: current Alcohol intake frequency: does not drink Patient Tobacco Use Status: Never used Tobacco Review of Systems Narrative Review of Systems - Musculoskeletal: Reports chronic neck and lower back pain. - Neurological: Reports bilateral lumbar radicular symptoms, which are sometimes worse on the left. - HEENT: Reports dry mouth. Denies any change in bowel bladder habits. Denies any fever or chills. Physical Exam Exam Exam: Physical Exam - Back: Tenderness to palpation noted over the lower lumbar area, as localized by the patient. Dural tension signs were negative. Gait was slightly antalgic on the left. Tenderness with palpation over left SI sulcus and left buttock. Left SI compression test was positive. Neurological examination was nonfocal. Patient demonstrated no upper motor neuron signs. Vital Signs: BMI result Body Mass Index 44.8 Assessment & Plan Assessment & Plan (1) Lumbar back pain with radiculopathy affecting left lower extremity: Code(s): M54.16 - Radiculopathy, lumbar region Category: Medical (2) Neural foraminal stenosis of lumbar spine: Code(s): M48.061 - Spinal stenosis, lumbar region without neurogenic claudication Category: Medical (3) Sacroiliitis: Code(s): M46.1 - Sacroiliitis, not elsewhere classified Category: Medical (4) Sacroiliac joint dysfunction of left side: Code(s): M53.3 - Sacrococcygeal disorders, not elsewhere classified Category: Medical (5) Postlaminectomy syndrome of lumbar region: Code(s): M96.1 - Postlaminectomy syndrome, not elsewhere classified Category: Medical Plan Pain Management - Analgesia: The patient's chronic pain is managed with buprenorphine patches, immediate-release oxycodone for breakthrough pain, and pregabalin for neuropathic pain. - Analgesia: She notes that oxycodone helps with the pain, but it doesn't always work completely. - Analgesia: She also uses lidocaine patches, placing two on the left side and one on the right. - Adverse Effects: She reports experiencing a dry mouth. - Aberrant Drug Related Behaviors: She requested refills for her medications as she is running low. Plan Patient was informed and verbally consented to the use of an ambient scribe for clinic note documentation during this visit. 1. Chronic Lower Back Pain With Lumbar Radiculopathy The patient reports persistent low back pain and left-sided radiculopathy despite a recent left L5-S1 foraminotomy. A recent MRI demonstrated a central disc extrusion, which could be the source of her ongoing symptoms, though a left SI joint etiology is also being considered. The plan is to schedule a left L5 transforaminal epidural steroid injection with conscious sedation, as this may be more effective now that the neural foramen has been decompressed. The patient will continue with her current pain medication regimen, and prescriptions for oxycodone and patches will be refilled. She will also proceed with her follow-up appointment with her surgeon's office in early November to review the imaging and discuss further options. 2. Chronic Neck Pain The patient's chronic neck pain was noted as part of her presenting complaints. No specific changes to her management plan for neck pain were discussed during this visit; she will continue her current systemic pain medications. 3. Calcific Tendinitis Of Left Shoulder The patient has a known history of left shoulder calcific tendinitis causing pain with certain activities. This issue was mentioned but not addressed in the plan during this visit. Risks and benefits of the procedure were discussed with the patient. Potential alternative measures were also discussed. Patient understands that the procedure is completely elective. Potential side effects associated with injectable medications were discussed. All questions were answered to the patient's satisfaction. Discussion Notes I discussed with the patient her ongoing low back and radicular leg pain, which has not improved after her recent L5-S1 foraminotomy. We reviewed her recent MRI results, which show a central disc extrusion that is likely contributing to her symptoms. I proposed a left L5 transforaminal injection, explaining it might be more beneficial now that the nerve space has been opened surgically. We will schedule the procedure with conscious sedation at [facility]. The patient was advised to keep her upcoming appointment with her surgeon's office and we can adjust the plan based on their recommendations. I also confirmed that I will send refills for her pain medications to her pharmacy. Patient Instructions - We will arrange for a left-sided lower back injection (left L5 transforaminal injection) to help with your leg pain. - The procedure will be done with sedation at [facility], and someone from the scheduling department will call you to set up the appointment. - Continue to take your pain medications as prescribed. - I have sent refills for your oxycodone and pain patches to your pharmacy. - Please make sure to attend your upcoming appointment with your surgeon's office in early November to discuss your recent MRI results. - Please let us know what your surgeon recommends, as we may need to adjust your treatment plan. Orders: Referrals Physiatry Procedure Notification M48.061 - Spinal stenosis, lumbar region without neurogenic claudication, M54.16 - Radiculopathy, lumbar region, Z98.890 - Other specified postprocedural states Medications: Changed From buprenorphine 20 mcg/hour 1 patch topical QWEEK 4 ea 0RF pain G89.4 - Chronic pain syndrome, M96.1 - Postlaminectomy syndrome, not elsewhere classified To buprenorphine 20 mcg/hour Fill date 10/24/2025 1 patch topical QWEEK 4 ea 0RF pain 28 days G89.4 - Chronic pain syndrome, M96.1 - Postlaminectomy syndrome, not elsewhere classified From oxycodone-acetaminophen 10-325 mg Partial fill upon request 1 tab PO TID PRN 84 tabs 0RF Pain M46.1 - Sacroiliitis, not elsewhere classified, M48.061 - Spinal stenosis, lumbar region without neurogenic claudication, M54.16 - Radiculopathy, lumbar region, M96.1 - Postlaminectomy syndrome, not elsewhere classified To oxycodone-acetaminophen 10-325 mg Partial fill upon request 1 tab PO TID PRN 84 tabs 0RF Pain 28 days M46.1 - Sacroiliitis, not elsewhere classified, M48.061 - Spinal stenosis, lumbar region without neurogenic claudication, M54.16 - Radiculopathy, lumbar region, M96.1 - Postlaminectomy syndrome, not elsewhere classified Coding Level of Care Code Est Pt Level 4 (40802) Add On Problem Visit Only Diagnoses Lumbar back pain with radiculopathy affecting left lower extremity M54.16 Neural foraminal stenosis of lumbar spine M48.061 Sacroiliitis M46.1 Sacroiliac joint dysfunction of left side M53.3 Postlaminectomy syndrome of lumbar region M96.1
[2025-10-23 09:57] VITALS: BMI 44.8
--- OUTSIDE RECORDS SUMMARY | 2025-10-23 11:53 | XMS_ITS | Clinical Summary ---
Author Organization [facility] Prior to 04/07/[address] [place] [id number] Care Team Providers Care Plug Paster Name Role Phone Colin Leiva MD Primary Care Provider [phone] Social History Tobacco Use Types Packs/Day Years [...] age to complete this topic Care Teams Plug Paster Relationship Specialty Start Date End Date Colin Leiva MD PCP - General Die Maintenance 10/07/18
--- OUTSIDE RECORDS SUMMARY | 2025-10-23 11:53 | XMS_ITS | Clinical Summary ---
Author Organization [facility] [address] [place] [address] [place] [phone] Phone Care Team Providers Care Batch Freezer Name Role Phone Petros Wren Primary Care Provider [phone] Allergies Active Allergy Reactions Criticality Noted Date [...] DAY IN THE MORNING 90 tablet 3 025 Active indapamide (LOZOL) 2.5 mg tablet Take 1 tablet (2.5 mg total) by mouth 1 (one) time each day in the morning. 90 tablet 3 024 2024 Discontinued predniSONE (DELTASONE) 20 [...] Care Team Description 10/02/2025 Results Follow-Up Adult [address] [phone] Petros Wren PA 10/02/2025 Telephone Adult [address] [phone] Petros Wren PA 10/01/2025 11:15 AM EST Lab Draw Station [address] Anemia, unspecified type; Type 2 diabetes mellitus without complication, without long-term current use of insulin ([facility] V24, [facility] V28); Class 2 obesity; Essential hypertension, benign; Microcytic anemia; Preoperative cardiovascular examination; Degeneration of intervertebral disc of lumbar region, unspecified whether pain present 10/01/2025 10:30 AM EST Office Visit Adult [address] [phone] Petros Wren PA Anemia, unspecified type (Primary Dx); Type 2 diabetes mellitus without complication, without long-term current use of insulin ([facility] V24, [facility] V28); Class 2 obesity; Essential hypertension, benign; Need for prophylactic vaccination and inoculation against influenza; PAC (premature atrial contraction); Obstructive sleep apnea 09/18/2025 11:00 AM EST Office Visit Adult [address] [phone] Sarai Phillips PA Vertigo (Primary Dx); Microcytic anemia; Primary hypertension 09/17/2025 Telephone Adult Medicine [address] [phone] Petros Wren PA 09/16/2025 12:47 PM EST - 09/16/2025 6:[address] [facility] [address] [place] [phone] Delfin Lloyd MD Goebel, Mathew, MD [...] artery disease Brother 2 had a stent, [place] Coronary artery disease Father [place] @ 58 Stroke Maternal Grandmother Arthritis Mother [...] for your loved ones. For example, childcare attendant or elderly care for an older adult? [...] 02/20/2026 10:40 AM EDT Appointment Radiology Department [address] [phone] 04/03/2026 9:00 AM EDT Office Visit Adult Medicine [address] [phone] Petros Wern PA [address] [place] [phone] 06/04/2026 10:40 AM EDT Consult Gastroenterology - [address] [facility] 299 [facility] [address] [place] [phone] Carolina Schafer, COY 299 [facility] [address] [place] [address] 06/07/2026 10:00 AM EDT Office Visit Pulmonology - [place] 175 [facility] [address] [place] [phone] Perla Cordero MD [address] [place] [phone] Health Maintenance Due Date Last Done Comments [...] Name Priority Date/Time Associated Diagnosis Comments EXTERNAL MRI REPORT 10/15/2025 CBC WITH AUTO DIFFERENTIAL Routine 10/01/2025 11:24 AM EST Anemia, unspecified type Type 2 diabetes mellitus without complication, without long-term current use of insulin ([facility] V24, [facility] V28) Class 2 obesity Essential hypertension, benign LIPID PANEL WITH REFLEX TO DIRECT LDL Routine 10/01/2025 11:24 AM EST Anemia, unspecified type Type 2 diabetes mellitus without complication, without long-term current use of insulin ([facility] V24, [facility] V28) Class 2 obesity Essential hypertension, benign MICROALBUMIN CREATININE URINE RATIO Routine 10/01/2025 11:24 AM EST Anemia, unspecified type Type 2 diabetes mellitus without complication, without long-term current use of insulin ([facility] V24, [facility] V28) Class 2 obesity Essential hypertension, benign COMPREHENSIVE METABOLIC PANEL Routine 10/01/2025 11:24 AM EST Anemia, unspecified type Type 2 diabetes mellitus without complication, without long-term current use of insulin ([facility] V24, [facility] V28) Class 2 obesity Essential hypertension, benign HEMOGLOBIN A1C Routine 10/01/2025 11:24 AM EST Anemia, unspecified type Type 2 diabetes mellitus without complication, without long-term current use of insulin ([facility] V24, [facility] V28) Class 2 obesity Essential hypertension, benign CBC AND DIFFERENTIAL Routine 10/01/2025 11:24 AM EST Anemia, unspecified type Type 2 diabetes mellitus without complication, without long-term current use of insulin ([facility] V24, [facility] V28) Class 2 obesity Essential hypertension, benign IRON AND TIBC Routine 10/01/2025 11:24 AM EST Anemia, unspecified type Type 2 diabetes mellitus without complication, without long-term current use of insulin ([facility] V24, [facility] V28) Class 2 obesity Essential hypertension, benign FERRITIN Routine 10/01/2025 11:24 AM EST Anemia, unspecified type Type 2 diabetes mellitus without complication, without long-term current use of insulin ([facility] V24, [facility] V28) Class 2 obesity Essential hypertension, benign [...] Relevant to Health Maintenance Results * External MRI Report (10/15/2025) Anatomical Region Laterality Modality Magnetic Resonan ce Provider [facility] IMG MRI PROCEDURES Final Result * Lipid panel with reflex to direct LDL (10/01/2025 11:24 AM EST) Cholesterol 186 0 - 200 mg/dL 10/01/2025 4:52 PM [facility] Triglycerides 131 0 - 150 mg/dL 10/01/2025 4:52 PM [facility] HDL 84 >=40 mg/dL 10/01/2025 4:52 PM [facility] LDL Calculated 76 0 - 100 mg/dL 10/01/2025 4:52 PM [facility] Comment:Estimated LDL Calcul ated using equation: Total cholesterol - HDL cholesterol - (Triglycerides/5) VLDL Cholesterol Ramesh 26.2 mg/dL 10/01/2025 4:52 PM [facility] Non HDL Chol. (LDL+VLDL) 102 <145 mg/dL 10/01/2025 4:52 PM [facility] Chol/HDL Ratio 2.2 0.0 - 4.4 10/01/2025 4:52 PM [facility] Blood Venous blood specimen / Unknown Venipuncture / Unknown 10/01/2025 11:24 AM EST 10/01/2025 11:24 AM EST Petros OGDEN LAB BLOOD ORDERABLES Brissa sorensen Result [facility] [address] [place] [address], * (ABNORMAL) CBC auto differential (10/01/2025 11:24 AM EST) Only the most recent of2 resultswithin the time period is included. WBC 7.4 4.8 - 10.8 K/mcL LAB HEMETOLOGY METHOD 10/01/2025 3:42 PM [facility] RBC 4.70 3.80 - 4.80 M/mcL LAB HEMETOLOGY METHOD 10/01/2025 3:42 PM [facility] Hemoglobin 10.8(L) 11.5 - 16.0 g/dL LAB HEMETOLOGY METHOD 10/01/2025 3:42 PM [facility] Hematocrit 36.2 35.0 - 47.0 % LAB HEMETOLOGY METHOD 10/01/2025 3:42 PM [facility] MCV 76.5(L) 79.0 - 98.0 FL LAB HEMETOLOGY METHOD 10/01/2025 3:42 PM [facility] MCH 22.8(L) 27.0 - 32.0 pcg LAB HEMETOLOGY METHOD 10/01/2025 3:42 PM [facility] MCHC 29.8(L) 32.0 - 37.0 g/dL LAB HEMETOLOGY METHOD 10/01/2025 3:42 PM [facility] RDW 16.9(H) 11.0 - 15.0 % LAB HEMETOLOGY METHOD 10/01/2025 3:42 PM [facility] Platelets 454(H) 130 - 400 K/mcL LAB HEMETOLOGY METHOD 10/01/2025 3:42 PM [facility] MPV 9.4 7.0 - 11.0 FL LAB HEMETOLOGY METHOD 10/01/2025 3:42 PM [facility] NRBC 0.0 <1.0 % LAB HEMETOLOGY METHOD 10/01/2025 3:42 PM [facility] NRBC Absolute 0.00 <0.10 K/mcL LAB HEMETOLOGY METHOD 10/01/2025 3:42 PM [facility] Neutrophils Relative 65.8 % LAB HEMETOLOGY METHOD 10/01/2025 3:42 PM [facility] Lymphocytes Relative 21.9 % LAB HEMETOLOGY METHOD 10/01/2025 3:42 PM [facility] Monocytes Relative 9.1 % LAB HEMETOLOGY METHOD 10/01/2025 3:42 PM [facility] Eosinophils Relative 2.0 % LAB HEMETOLOGY METHOD 10/01/2025 3:42 PM [facility] Basophils Relative 0.7 % LAB HEMETOLOGY METHOD 10/01/2025 3:42 PM [facility] Immature Granulocytes Relative 0.5 % LAB HEMETOLOGY METHOD 10/01/2025 3:42 PM [facility] Neutrophils Absolute 4.83 1.50 - 7.00 K/mcL LAB HEMETOLOGY METHOD 10/01/2025 3:42 PM [facility] Lymphocytes Absolute 1.61 1.00 - 5.00 K/mcL LAB HEMETOLOGY METHOD 10/01/2025 3:42 PM [facility] Monocytes Absolute 0.67 0.20 - 1.00 K/mcL LAB HEMETOLOGY METHOD 10/01/2025 3:42 PM [facility] Eosinophils Absolute 0.15 0.00 - 0.50 K/mcL LAB HEMETOLOGY METHOD 10/01/2025 3:42 PM [facility] Basophils Absolute 0.05 0.00 - 0.20 K/mcL LAB HEMETOLOGY METHOD 10/01/2025 3:42 PM EST [facility] Immature Granulocytes Absolute 0.04(H) 0.00 - 0.03 K/mcL LAB HEMETOLOGY METHOD 10/01/2025 3:42 PM [facility] Blood Venous blood specimen / Unknown Venipuncture / Unknown 10/01/2025 11:24 AM EST 10/01/2025 11:24 AM EST Petros OGDEN LAB BLOOD ORDERABLES Brissa l Result [facility] [address] [place] [address], * (ABNORMAL) Iron and TIBC (10/01/2025 11:24 AM EST) Iron 35(L) 40 - 150 mcg/dL 10/01/2025 4:41 PM [facility] TIBC 454(H) 250 - 450 mcg/dL 10/01/2025 4:41 PM [facility] Iron Saturation 8(L) 15 - 50 % 4:41 PM [facility] Blood Venous blood specimen / Unknown Venipuncture / Unknown 10/01/2025 11:24 AM EST 10/01/2025 11:24 AM EST Petros OGDEN LAB BLOOD ORDERABLES Brissa l Result [facility] [address] [place] [address], [place] [phone] * Microalbumin creatinine urine ratio (10/01/2025 11:24 AM EST) Creatinine, Urine 32.0 mg/dL 10/01/2025 4:53 PM EST [facility] Microalb, Ur 8.0 0.0 - 29.0 mg/L 10/01/2025 4:53 PM EST [facility] Microalb/Creat Ratio 25 <30 mg/g creat 10/01/2025 4:53 PM [facility] Urine Urine specimen obtained by clean catch procedure / Unknown Non-blood Collection / Unknown 10/01/2025 11:24 AM EST 10/01/2025 11:24 AM EST Petros OGDEN LAB URINE ORDERABLES Brissa l Result [facility] [address] [place] [address], [place] [phone] * (ABNORMAL) Hemoglobin A1c (10/01/2025 11:24 AM EST) Hemoglobin A1C 6.7(H) <6.5 % LAB CHEMISTRY METHOD 10/01/2025 8:13 PM [facility] Mean Bld Glu Estim. 146 mg/dL LAB CHEMISTRY METHOD 10/01/2025 8:13 PM [facility] Blood Venous blood specimen / Unknown Venipuncture / Unknown 10/01/2025 11:24 AM EST 10/01/2025 11:24 AM EST Petros Wren NM LAB BLOOD ORDERABLES Brissa l Result [facility] [address] [place] [address], [place] [phone] * Ferritin (10/01/2025 11:24 AM EST) Ferritin 7 7 - 271 ng/mL 10/01/2025 4:39 PM [facility] Blood Venous blood specimen / Unknown Venipuncture / Unknown 10/01/2025 11:24 AM EST 10/01/2025 11:24 AM EST us Petros OGDEN LAB BLOOD ORDERABLES Brissa sorensen Result [facility] [address] [place] [address], * (ABNORMAL) Comprehensive metabolic panel (10/01/2025 11:24 AM EST) Sodium 142 133 - 145 mmol/L 10/01/2025 4:41 PM [facility] Potassium 3.9 3.5 - 5.5 mmol/L 10/01/2025 4:41 PM [facility] Chloride 98 96 - 110 mmol/L 10/01/2025 4:41 PM [facility] CO2 32 21 - 32 mmol/L 10/01/2025 4:41 PM [facility] Anion Gap 12(H) 3 - 11 10/01/2025 4:41 PM [facility] Glucose 81 70 - 100 mg/dL 10/01/2025 4:41 PM [facility] BUN 11 5 - 25 mg/dL 10/01/2025 4:41 PM [facility] Creatinine 0.72 0.50 - 1.10 mg/dL 10/01/2025 4:41 PM [facility] eGFR 91 >=60 mL/min/1. 73m2 10/01/2025 4:41 PM [facility] Comment:Calculation based on the Chronic Kidney Disease Epidemiology Collaboration (CKD-EPI) equation refit without adjustment for race. BUN/Creatinine Ratio 15.3 10/01/2025 4:41 PM [facility] Calcium 9.2 8.5 - 10.5 mg/dL 10/01/2025 4:41 PM [facility] AST (SGOT) 29 10 - 42 unit/L 10/01/2025 4:41 PM [facility] ALT (SGPT) 29 10 - 60 unit/L 10/01/2025 4:41 PM [facility] Alkaline Phosphatase 176(H) 42 - 121 unit/L 10/01/2025 4:41 PM [facility] Total Protein 7.0 6.0 - 8.0 g/dL 10/01/2025 4:41 PM [facility] Albumin 4.4 3.2 - 5.0 g/dL 10/01/2025 4:41 PM [facility] Total Bilirubin 0.3 0.0 - 1.4 mg/dL 10/01/2025 4:41 PM [facility] Blood Venous blood specimen / Unknown Venipuncture / Unknown 10/01/2025 11:24 AM EST 10/01/2025 11:24 AM EST us Petros OGDEN LAB BLOOD ORDERABLES Brissa l Result [facility] [address] [place] [address], * ECG-Annotated (09/17/2025) us Provider Onbase MD ECG ORDERABLES Final Result * (ABNORMAL) Urinalysis with reflex microscopic (09/16/2025 3:54 PM EST) Specific [place] Urine 1.017 1.003 - 1.030 LAB URINALYSIS - AUTOMATED METHOD 09/16/2025 4:47 PM [facility] pH, Urine 7.5 5.0 - 8.0 pH LAB URINALYSIS - AUTOMATED METHOD 09/16/2025 4:47 PM [facility] Leukocytes, Urine Negative Negative LAB URINALYSIS - AUTOMATED METHOD 09/16/2025 4:47 PM [facility] Nitrite, Urine Negative Negative LAB URINALYSIS - AUTOMATED METHOD 09/16/2025 4:47 PM [facility] Protein, Urine 30(A) <=Trace mg/dL LAB URINALYSIS - AUTOMATED METHOD 09/16/2025 4:47 PM [facility] Glucose, Urine Negative Negative mg/dL LAB URINALYSIS - AUTOMATED METHOD 09/16/2025 4:47 PM [facility] Ketones, Urine 15(A) Negative mg/dL LAB URINALYSIS - AUTOMATED METHOD 09/16/2025 4:47 PM [facility] Urobilinogen, Urine 1.0 0.2 - 1.0 mg/dL LAB URINALYSIS - AUTOMATED METHOD 09/16/2025 4:47 PM [facility] Bilirubin, Urine Negative Negative LAB URINALYSIS - AUTOMATED METHOD 09/16/2025 4:47 PM [facility] Blood, Urine Negative Negative LAB URINALYSIS - AUTOMATED METHOD 09/16/2025 4:47 PM [facility] RBC, Urine 4 0 - 4 /HPF LAB URINALYSIS - AUTOMATED METHOD 09/16/2025 4:47 PM [facility] WBC, Urine 4 0 - 4 /HPF LAB URINALYSIS - AUTOMATED METHOD 09/16/2025 4:47 PM [facility] Squamous Epithelial, Urine 10 0 - 60 /LPF LAB URINALYSIS - AUTOMATED METHOD 09/16/2025 4:47 PM [facility] Bacteria, Urine Negative Negative /HPF LAB URINALYSIS - AUTOMATED METHOD 09/16/2025 4:47 PM [facility] Urine Urine specimen obtained by clean catch procedure / Unknown Non-blood Collection / Unknown 09/16/2025 3:54 PM EST 09/16/2025 4:15 PM EST Delfin Lloyd MD LAB URINE ORDERABLES Final Resul t [facility] [address] [place] [address], * CT Head wo Contrast (09/16/2025 1:49 PM EST) Anatomical Region Laterality Modality Head and Neck Computed Tomogra phy 09/16/2025 2:41 PM EST Impressions 09/16/2025 2:42 PM EST NO ACUTE INTRACRANIAL ABNORMALITY. -------- FINAL REPORT -------- Dictated By: Rae Sewell Dictated Date: 09/16/2025 14:41 ET Assigned Physician: Rae Sewell Reviewed and Electronically Signed By: Rae Sewell Signed Date: 09/16/2025 14:42 ET Workstation ID: [id number] Transcribed By: Self Edit Transcribed Date: 09/16/2025 [...] Signed Date: 09/16/2025 14:42 ET Workstation ID: [id number] Transcribed By: Self Edit Transcribed Date: 09/16/2025 14:41 ET us Delfin Lloyd MD IMG CT PROCEDURES Final Result * Troponin I high sensitivity (09/16/2025 1:32 PM EST) [facility] High Sensitivity Troponin I 5 <=54 ng/L LAB CHEMISTRY METHOD 09/16/2025 2:05 PM EST [facility] Blood Venous blood specimen / Unknown Venipuncture / Unknown 09/16/2025 1:32 PM EST 09/16/2025 1:40 PM EST Narrative [facility] - 09/16/2025 2:05 PM EST High levels of biotin in samples may falsely decrease hsTroponin values. Use caution when interpreting hsTroponin results in patients taking biotin who exhibit renal impairment (eGFR <60) or in patients taking more than 20 mg/day of biotin. us Delfin Lloyd MD LAB BLOOD ORDERABLES Final Resul t Performing Organization Address [facility]/ZIP Co de Phone Number [facility] [address] [place] [address], * (ABNORMAL) Beta hydroxybutyrate (09/16/2025 1:25 PM EST) [facility] Beta-Hydroxybu tyrate 5.9(H) 0.2 - 2.8 mg/dL LAB CHEMISTRY METHOD 09/16/2025 2:05 PM EST [facility] Blood Venous blood specimen / Unknown Venipuncture / Unknown 09/16/2025 1:25 PM EST 09/16/2025 1:42 PM EST us Delfin Lloyd MD LAB BLOOD ORDERABLES Final Resul t Performing Organization Address [facility]/ZIP Co de Phone Number [facility] [address] [place] [address], [place] [phone] * Magnesium (09/16/2025 1:25 PM EST) Magnesium 2.4 1.9 - 2.6 mg/dL LAB CHEMISTRY METHOD 09/16/2025 2:05 PM [facility] Blood Venous blood specimen / Unknown Venipuncture / Unknown 09/16/2025 1:25 PM EST 09/16/2025 1:42 PM EST us Delfin Lloyd MD LAB BLOOD ORDERABLES Final Resul t [facility] [address] [place] [address], * (ABNORMAL) Basic Metabolic Panel (BMP) (09/16/2025 1:25 PM EST) Sodium 138 133 - 145 mmol/L LAB CHEMISTRY METHOD 09/16/2025 2:05 PM [facility] Potassium 3.5 3.5 - 5.5 mmol/L LAB CHEMISTRY METHOD 09/16/2025 2:05 PM [facility] Chloride 101 96 - 110 mmol/L LAB CHEMISTRY METHOD 09/16/2025 2:05 PM [facility] CO2 32 21 - 32 mmol/L LAB CHEMISTRY METHOD 09/16/2025 2:05 PM [facility] Anion Gap 5 3 - 11 LAB CHEMISTRY METHOD 09/16/2025 2:05 PM [facility] Glucose 123(H) 70 - 100 mg/dL LAB CHEMISTRY METHOD 09/16/2025 2:05 PM [facility] BUN 9 5 - 25 mg/dL LAB CHEMISTRY METHOD 09/16/2025 2:05 PM [facility] Creatinine 0.58 0.50 - 1.10 mg/dL LAB CHEMISTRY METHOD 09/16/2025 2:05 PM [facility] eGFR 99 >=60 mL/min/1. 73m2 LAB CHEMISTRY METHOD 09/16/2025 2:05 PM EST [facility] Comment:Calculation based on the Chronic Kidney Disease Epidemiology Collaboration (CKD-EPI) equation refit without adjustment for race. BUN/Creatinine Ratio 15.5 LAB CHEMISTRY METHOD 09/16/2025 2:05 PM EST [facility] Calcium 8.8 8.5 - 10.5 mg/dL LAB CHEMISTRY METHOD 09/16/2025 2:05 PM EST [facility] Blood Venous blood specimen / Unknown Venipuncture / Unknown 09/16/2025 1:25 PM EST 09/16/2025 1:42 PM EST us Delfin Lloyd MD LAB BLOOD ORDERABLES Final Resul t [facility] [address] [place] [address], [place] [phone] * 12-Lead ECG (09/16/2025 1:14 PM EST) Ventricular Rate ECG 81 BPM GEMUSE Atrial Rate 81 BPM GEMUSE P-R Interval 150 ms GEMUSE QRS Duration 72 ms GEMUSE Q-T Interval 400 ms GEMUSE QTc 464 ms GEMUSE P Wave Hollister 90 degrees GEMUSE R Hollister -12 degrees GEMUSE T Hollister 36 degrees GEMUSE ECG Interpretation Sinus rhythm [...] is recommended in 1 year. Mammo Location: [facility], [address] [place] [address], [id number], . -------- FINAL REPORT -------- Dictated By: Aline Pro Dictated Date: 02/16/2025 14:20 ET Assigned Physician: Aline Pro Reviewed and Electronically Signed By: Aline Pro Signed Date: 02/16/2025 14:25 ET Workstation ID: [id number] Transcribed By: Self Edit Transcribed Date: 02/16/2025 [...] is recommended in 1 year. Mammo Location: [facility], [address] [place] [address], [id number], . -------- FINAL REPORT -------- Dictated By: Aline Pro Dictated Date: 02/16/2025 14:20 ET Assigned Physician: Aline Pro Reviewed and Electronically Signed By: Aline Pro Signed Date: 02/16/2025 14:25 ET Workstation ID: [id number] Transcribed By: Self Edit Transcribed Date: 02/16/2025 14:20 ET Petros OGDEN IMG BI PROCEDURES Final R esult * Diabetes Foot Exam (07/06/2024) [facility] Diabetes: Annual Foot Exam Abstracted Result [facility] Historical Provider HEALTH MAINTENANCE Final Result * Diabetes Eye Exam (03/15/2024) [facility] Diabetes: Annual Retina Eye Exam Abstracted [facility] [...] classified as having normal bone density. [facility] Department of Internal Medicine recommends using [...] beclassified as having normal bone density. [facility] Department of Internal Medicine recommendsusing National [...] or over-estimation of fracture risk by FRAX. [facility] Alan BERNAL DXA PROCEDURES Final Result * Colonoscopy (07/11/2019) Pathologist [facility] Colonoscopy No interpretation , abstracted Anatomical Region Laterality Modality Other Historical Provider HEALTH MAINTENANCE Final Result * Hepatitis C Screening (05/17/2013) [facility] Hepatitis C Screening Abstracted Historical Provider HEALTH MAINTENANCE Final Result from Last 3 Months or Most Recently Relevant to Health Maintenance Insurance [employer] MEDICARE Advance Directives Documents on File Type Date Recorded Patient Primer Boxer Expl anation Health Care Decision (hx) 01/28/2019 [...] (hx) 01/26/2019 AD KAPOOR DIRECTIVE Care Teams Batch Freezer Relationship Specialty Start Date End Date Petros Wren PA [address] [place] [id number] PCP - General Internal Medicine 09/25/24
--- OUTSIDE RECORDS SUMMARY | 2025-10-23 11:53 | XMS_ITS | Encounter Summary ---
Author Organization [facility] Address [address] [place] [address] Care Team Providers Care Economics Analyst Name Role Phone Petros Wren Primary Care Provider [phone] Encounter Details Date Type Department Care Team (Late st Contact Info) Description 10/02/2025 Results Follow-Up Adult [address] [phone] Petros Wren PA [address] [place] [phone] Social History Tobacco Use Types Packs/Day Years [...] your loved ones. For example, child care center assistant director or elderly care for an older [...] 02/20/2026 10:40 AM EDT Appointment Radiology Department [address] [phone] 04/03/2026 9:00 AM EDT Office Visit Adult Medicine [address] [phone] Petros Wren, PA [address] [place] [phone] 06/04/2026 10:40 AM EDT Consult Gastroenterology - [address] [facility] [address] [place] [address] Carolina Schafer, COY [address] [facility] [address] [place] [address] 06/07/2026 10:00 AM EDT Office Visit Pulmonology - [place] [address] [facility] [address] [place] [address] Perla Cordero MD [address] [place] [phone] documented as of this encounter Visit Diagnoses Not on filedocumented in this encounter Additional Health Concerns Assessment Noted Time PHQ-9 Depression Total Score: 0 03/26/20 25 10:35 AM EDT documented as of this encounter Care Teams Economics Analyst Relationship Specialty Start Date End Date Petros Wren PA [address] [place] [address] PCP - General Internal Medicine 09/25/24 documented as of this encounter
--- OUTSIDE RECORDS SUMMARY | 2025-10-23 11:53 | XMS_ITS | Patient Health Record ---
[facility] Address [address] [place] [phone] Care Team Providers Care Commercial Marketing Specialist Name Role Phone Colin Leiva MD Primary Care Provider Ricardo Gallegos Unavailable [phone] Allergies Allergen (clinical drug ingredient) Drug/Non Drug [...] W/U Status Risk Notes Problem Plantar fasciitis (362580905) Plantar Fasciitis (728.71) Active confirmed Plan Of Treatment Pending Test Test Name Order Date 88140,[id number] TENDON SHEATH/LIGAMENT 1 12/16/2010 Insurance Providers Payer Name Payer Address Payer Phone Subscriber Number Group Number Insured Name Patient Relationship to Insured Coverage Start Date Coverage End Date [facility] [address] [place] [address] [phone] [id number] Martha Styles Self - patient is the insured Medical (General) History Medical History History ICD Code mumps measles hypertension headaches/migraines back, hip, knee pain asthma Surgical History Surgery Date(Month/Year) cholecystectomy tubal ligation topaz left foot
== END 2025-10-23 10:15 | disposition home or self-care (01) ==
LOC: HO.HPHYS 09:52
PROVIDERS: PCP Physician Assistant Medical; Visit Provider Physical Medicine & Rehabilitation
DX: M54.16 Radiculopathy, lumbar region (principal); M48.061 Spinal stenosis, lumbar region without neurogenic claudication; M46.1 Sacroiliitis, not elsewhere classified; M53.3 Sacrococcygeal disorders, not elsewhere classified; M96.1 Postlaminectomy syndrome, not elsewhere classified
CPT/HCPCS: 99214; G2211

== ENCOUNTER → 2025-10-23 09:52 | Outpatient (BNVA) | payer MEDICARE, SELFPAY | PROVIDERS: PCP Physician Assistant Medical; Visit Provider Physical Medicine & Rehabilitation | DX: M54.16 Radiculopathy, lumbar region (principal); M48.061 Spinal stenosis, lumbar region without neurogenic claudication; M46.1 Sacroiliitis, not elsewhere classified; M53.3 Sacrococcygeal disorders, not elsewhere classified; M96.1 Postlaminectomy syndrome, not elsewhere classified | CPT/HCPCS: 99212 ==

== ENCOUNTER 2025-11-07 10:49 | Outpatient (AMB) | payer MEDICARE, SELFPAY ==
--- OUTSIDE RECORDS SUMMARY | 2025-11-07 12:14 | XMS_ITS | Encounter Summary ---
Author Organization [facility] Address [address] [place] [address] Care Team Providers Care Encoding Machine Operator Name Role Phone Petros Wren Primary Care Provider [phone] Encounter Details Date Type Department Care Team (Late st Contact Info) Description 10/02/2025 Results Follow-Up Adult [address] [phone] Petros Wren PA [address] [place] [phone] Social History Tobacco Use Types Packs/Day Years [...] your loved ones. For example, early childhood education worker or elderly care for an older [...] 02/20/2026 10:40 AM EDT Appointment Radiology Department [address] [phone] 04/03/2026 9:00 AM EDT Office Visit Adult Medicine [address] [phone] Petros Wren, PA [address] [place] [phone] 06/04/2026 10:40 AM EDT Consult Gastroenterology - [address] [facility] [address] [place] [address] Carolina Schafer, COY [address] [facility] [address] [place] [address] 06/07/2026 10:00 AM EDT Office Visit Pulmonology - [place] [address] [facility] [address] [place] [address] Perla Cordero MD [address] [place] [phone] documented as of this encounter Visit Diagnoses Not on filedocumented in this encounter Additional Health Concerns Assessment Noted Time PHQ-9 Depression Total Score: 0 03/26/20 25 10:35 AM EDT documented as of this encounter Care Teams Encoding Machine Operator Relationship Specialty Start Date End Date Petros Wren PA [address] [place] [id number] PCP - General Internal Medicine 09/25/24 documented as of this encounter
--- OUTSIDE RECORDS SUMMARY | 2025-11-07 12:14 | XMS_ITS | Clinical Summary ---
Author Organization [facility] Prior to 04/07/[address] [place] [id number] Care Team Providers Care Printed Circuit Boards Beveler Name Role Phone Colin Leiva MD Primary [...] age to complete this topic Care Teams Printed [employer] Boards Beveler Relationship Specialty Start Date End Date Colin Leiva MD PCP - General Admitting Supervisor 10/07/18
--- OUTSIDE RECORDS SUMMARY | 2025-11-07 12:14 | XMS_ITS | Clinical Summary ---
Author Organization [facility] [address] [place] [address] [place] [phone] Phone Care Team Providers Care Shrinker Name Role Phone Petros Wren Primary Care Provider [phone] Allergies Active Allergy Reactions Criticality Noted Date [...] any 24 hour period. 05/17/20 23 Active oxyCODONE-acetamin ophen (PERCOCET) 10-325 mg per tablet Take 1 [...] DAILY 90 capsule 1 05/24/20 25 Active albuterol HFA (PROAIR HFA ; PROVENTIL HFA ; VENTOLIN HFA) 90 mcg/actuation inhalerIndications :Mild persistent asthma, unspecified whether complicated Inhale 2 puffs by mouth every 6 (six) hours if needed for wheezing or shortness of breath. 1 each 06/08/20 25 026 Active meclizine (ANTIVERT) 25 mg tablet Take 1 tablet (25 mg total) by mouth 3 (three) times a day if needed for dizziness. 10 tablet 09/16/20 25 Active ondansetron ODT (ZOFRAN-ODT) 8 mg disintegrating tablet Dissolve 1 tablet (8 mg total) on top of the tongue every 8 (eight) hours if needed for nausea or vomiting. 5 tablet 09/16/20 25 Active DULoxetine (CYMBALTA) [address] capsule TAKE 1 CAPSULE(60 MG) BY MOUTH 1 TIME EACH DAY 90 capsule 3 09/18/20 25 Active montelukast (SINGULAIR) 10 mg tablet TAKE 1 TABLET(10 MG) BY MOUTH 1 TIME EACH DAY 90 tablet 3 09/18/20 25 Active ferrous sulfate 325 mg (65 mg iron) EC tablet Take 1 tablet (325 mg total) by mouth every other day. Do not crush, chew, or split. 15 each 10/02/20 Active indapamide (LOZOL) 2.5 mg tablet TAKE 1 TABLET(2.5 MG) BY MOUTH 1 TIME EACH DAY IN THE MORNING 90 tablet 3 10/05/20 Active Active Problems Problem Noted Date Diagnosed [...] Care Team Description 10/02/2025 Results Follow-Up Adult Medicine [address] [phone] Petros Wren PA 10/02/2025 Telephone Adult Medicine [address] [phone] Petros Wren PA 10/01/2025 11:15 AM EST Lab Draw [address] Anemia, unspecified type; Type 2 diabetes mellitus without complication, without long-term current use of insulin (CMS/HCC V24, CMS/HCC V28); Class 2 obesity; Essential hypertension, benign; Microcytic anemia; Preoperative cardiovascular examination; Degeneration of intervertebral disc of lumbar region, unspecified whether pain present 10/01/2025 10:30 AM EST Office Visit Adult Medicine [address] [phone] Petros Wren PA Anemia, unspecified type (Primary Dx); Type 2 diabetes mellitus without complication, without long-term current use of insulin ([facility] V24, [facility] V28); Class 2 obesity; Essential hypertension, benign; Need for prophylactic vaccination and inoculation against influenza; PAC (premature atrial contraction); Obstructive sleep apnea 09/18/2025 11:00 AM EST Office Visit Adult Medicine [address] [phone] Sarai Phillips PA Vertigo (Primary Dx); Microcytic anemia; Primary hypertension 09/17/2025 Telephone Adult Medicine [address] [phone] Petros Wren PA 09/16/2025 12:47 PM EST - 09/16/2025 6:00 PM EST Emergency [facility] Emergency [address] [place] [phone] Delfin Lloyd MD Goebel, Mathew, MD Dizziness [...] artery disease Brother 2 had a stent, [place] Coronary artery disease Father [place] @ 58 Stroke Maternal Grandmother Arthritis Mother [...] for your loved ones. For example, child and youth program assistant or elderly care for an older adult? [...] 10:40 AM EDT Appointment Radiology Department - [address] [phone] 04/03/2026 9:00 AM EDT Office Visit Adult Medicine [address] [phone] Petros Wren PA [address] [place] [phone] 06/04/2026 10:40 AM EDT Consult Gastroenterology - [address] [facility] [address] [place] [phone] Carolina Schafer, COY [address] [facility] [address] [place] [address] 06/07/2026 10:00 AM EDT Office Visit Pulmonology - [place] [address] [facility] [address] [place] [phone] Perla Cordero MD [address] [place] [phone] Health Maintenance Due Date Last Done Comments [...] complication, without long-term current use of insulin ([facility] V24, [facility] V28) Class 2 obesity Essential hypertension, benign LIPID PANEL WITH REFLEX TO DIRECT LDL Routine 10/01/2025 11:24 AM EST Anemia, unspecified type Type 2 diabetes mellitus without complication, without long-term current use of insulin ([facility] V24, [facility] V28) Class 2 obesity Essential hypertension, benign MICROALBUMIN CREATININE URINE RATIO Routine 10/01/2025 11:24 AM EST Anemia, unspecified type Type 2 diabetes mellitus without complication, without long-term current use of insulin ([facility] V24, [facility] V28) Class 2 obesity Essential hypertension, benign COMPREHENSIVE METABOLIC PANEL Routine 10/01/2025 11:24 AM EST Anemia, unspecified type Type 2 diabetes mellitus without complication, without long-term current use of insulin ([facility] V24, [facility] V28) Class 2 obesity Essential hypertension, benign HEMOGLOBIN A1C Routine 10/01/2025 11:24 AM EST Anemia, unspecified type Type 2 diabetes mellitus without complication, without long-term current use of insulin ([facility] V24, [facility] V28) Class 2 obesity Essential hypertension, benign CBC AND DIFFERENTIAL Routine 10/01/2025 11:24 AM EST Anemia, unspecified type Type 2 diabetes mellitus without complication, without long-term current use of insulin ([facility] V24, [facility] V28) Class 2 obesity Essential hypertension, benign IRON AND TIBC Routine 10/01/2025 11:24 AM EST Anemia, unspecified type Type 2 diabetes mellitus without complication, without long-term current use of insulin ([facility] V24, [facility] V28) Class 2 obesity Essential hypertension, benign FERRITIN Routine 10/01/2025 11:24 AM EST Anemia, unspecified type Type 2 diabetes mellitus without complication, without long-term current use of insulin ([facility] V24, [facility] V28) Class 2 obesity Essential hypertension, [...] 0 - 200 mg/dL 10/01/2025 4:52 PM EST [facility] Triglycerides 131 0 - 150 mg/dL 10/01/2025 4:52 PM [facility] HDL 84 >=40 mg/dL 10/01/2025 4:52 PM [facility] LDL Calculated 76 0 - 100 mg/dL 10/01/2025 4:52 PM [facility] Comment:Estimated LDL Calcul ated using equation: Total cholesterol - HDL cholesterol - (Triglycerides/5) VLDL Cholesterol Ramesh 26.2 mg/dL 10/01/2025 4:52 PM [facility] Non HDL Chol. (LDL+VLDL) 102 <145 mg/dL 10/01/2025 4:52 PM EST [facility] Chol/HDL Ratio 2.2 0.0 - 4.4 10/01/2025 4:52 PM [facility] Blood Venous blood specimen / Unknown Venipuncture / Unknown 10/01/2025 11:24 AM EST 10/01/2025 11:24 AM EST Petros OGDEN LAB BLOOD ORDERABLES Brissa l Result [facility] [address] [place] [address], * (ABNORMAL) CBC auto differential (10/01/2025 11:24 AM EST) Only the most recent of2 resultswithin the time period is included. WBC 7.4 4.8 - 10.8 K/mcL LAB HEMETOLOGY METHOD 10/01/2025 3:42 PM [facility] RBC 4.70 3.80 - 4.80 M/mcL LAB HEMETOLOGY METHOD 10/01/2025 3:42 PM [facility] Hemoglobin 10.8(L) 11.5 - 16.0 g/dL LAB HEMETOLOGY METHOD 10/01/2025 3:42 PM [facility] Hematocrit 36.2 35.0 - 47.0 % LAB HEMETOLOGY METHOD 10/01/2025 3:42 PM [facility] MCV 76.5(L) 79.0 - 98.0 FL LAB HEMETOLOGY METHOD 10/01/2025 3:42 PM [facility] MCH 22.8(L) 27.0 - 32.0 pcg LAB HEMETOLOGY METHOD 10/01/2025 3:42 PM [facility] MCHC 29.8(L) 32.0 - 37.0 g/dL LAB HEMETOLOGY METHOD 10/01/2025 3:42 PM [facility] RDW 16.9(H) 11.0 - 15.0 % LAB HEMETOLOGY METHOD 10/01/2025 3:42 PM [facility] Platelets 454(H) 130 - 400 K/mcL LAB HEMETOLOGY METHOD 10/01/2025 3:42 PM [facility] MPV 9.4 7.0 - 11.0 FL LAB HEMETOLOGY METHOD 10/01/2025 3:42 PM [facility] NRBC 0.0 <1.0 % LAB HEMETOLOGY METHOD 10/01/2025 3:42 PM [facility] NRBC Absolute 0.00 <0.10 K/mcL LAB HEMETOLOGY METHOD 10/01/2025 3:42 PM [facility] Neutrophils Relative 65.8 % LAB HEMETOLOGY METHOD 10/01/2025 3:42 PM [facility] Lymphocytes Relative 21.9 % LAB HEMETOLOGY METHOD 10/01/2025 3:42 PM [facility] Monocytes Relative 9.1 % LAB HEMETOLOGY METHOD 10/01/2025 3:42 PM [facility] Eosinophils Relative 2.0 % LAB HEMETOLOGY METHOD 10/01/2025 3:42 PM [facility] Basophils Relative 0.7 % LAB HEMETOLOGY METHOD 10/01/2025 3:42 PM [facility] Immature Granulocytes Relative 0.5 % LAB HEMETOLOGY METHOD 10/01/2025 3:42 PM [facility] Neutrophils Absolute 4.83 1.50 - 7.00 K/mcL LAB HEMETOLOGY METHOD 10/01/2025 3:42 PM [facility] Lymphocytes Absolute 1.61 1.00 - 5.00 K/mcL LAB HEMETOLOGY METHOD 10/01/2025 3:42 PM [facility] Monocytes Absolute 0.67 0.20 - 1.00 K/mcL LAB HEMETOLOGY METHOD 10/01/2025 3:42 PM [facility] Eosinophils Absolute 0.15 0.00 - 0.50 K/mcL LAB HEMETOLOGY METHOD 10/01/2025 3:42 PM [facility] Basophils Absolute 0.05 0.00 - 0.20 K/mcL LAB HEMETOLOGY METHOD 10/01/2025 3:42 PM [facility] Immature Granulocytes Absolute 0.04(H) 0.00 - 0.03 K/mcL LAB HEMETOLOGY METHOD 10/01/2025 3:42 PM [facility] Blood Venous blood specimen / Unknown Venipuncture / Unknown 10/01/2025 11:24 AM EST 10/01/2025 11:24 AM EST Petros GODEN LAB BLOOD ORDERABLES Brissa l Result [facility] [address] [place] [address], [place] [phone] * (ABNORMAL) Iron and TIBC (10/01/2025 11:24 AM EST) Iron 35(L) 40 - 150 mcg/dL 10/01/2025 4:41 PM EST [facility] TIBC 454(H) 250 - 450 mcg/dL 10/01/2025 4:41 PM EST [facility] Iron Saturation 8(L) 15 - 50 % 4:41 PM EST [facility] Blood Venous blood specimen / Unknown Venipuncture / Unknown 10/01/2025 11:24 AM EST 10/01/2025 11:24 AM EST Petros OGDEN LAB BLOOD ORDERABLES Brissa l Result [facility] [address] [place] [address], [place] [phone] * Microalbumin creatinine urine ratio (10/01/2025 11:24 AM EST) Creatinine, Urine 32.0 mg/dL 10/01/2025 4:53 PM EST [facility] Microalb, Ur 8.0 0.0 - 29.0 mg/L 10/01/2025 4:53 PM EST [facility] Microalb/Creat Ratio 25 <30 mg/g creat 10/01/2025 4:53 PM EST [facility] Urine Urine specimen obtained by clean catch procedure / Unknown Non-blood Collection / Unknown 10/01/2025 11:24 AM EST 10/01/2025 11:24 AM EST Petros OGDEN LAB URINE ORDERABLES Brissa l Result [facility] [address] [place] [address], [place] [phone] * (ABNORMAL) Hemoglobin A1c (10/01/2025 11:24 AM EST) [facility] Hemoglobin A1C 6.7(H) <6.5 % LAB CHEMISTRY METHOD 10/01/2025 8:13 PM EST [facility] Mean Bld Glu Estim. 146 mg/dL LAB CHEMISTRY METHOD 10/01/2025 8:13 PM EST [facility] Blood Venous blood specimen / Unknown Venipuncture / Unknown 10/01/2025 11:24 AM EST 10/01/2025 11:24 AM EST Petros OGDEN LAB BLOOD ORDERABLES Brissa l Result Performing Organization Address City/[facility]/ZIP Co de Phone Number [facility] [address] [place] [address], [place] [phone] * Ferritin (10/01/2025 11:24 AM EST) [facility] Ferritin 7 7 - 271 ng/mL 10/01/2025 4:39 PM EST [facility] Blood Venous blood specimen / Unknown Venipuncture / Unknown 10/01/2025 11:24 AM EST 10/01/2025 11:24 AM EST Petros OGDEN LAB BLOOD ORDERABLES Brissa l Result [facility] [address] [place] [address], [place] [phone] * (ABNORMAL) Comprehensive metabolic panel (10/01/2025 11:24 AM EST) Sodium 142 133 - 145 mmol/L 10/01/2025 4:41 PM [facility] Potassium 3.9 3.5 - 5.5 mmol/L 10/01/2025 4:41 PM [facility] Chloride 98 96 - 110 mmol/L 10/01/2025 4:41 PM [facility] CO2 32 21 - 32 mmol/L 10/01/2025 4:41 PM [facility] Anion Gap 12(H) 3 - 11 10/01/2025 4:41 PM [facility] Glucose 81 70 - 100 mg/dL 10/01/2025 4:41 PM [facility] BUN 11 5 - 25 mg/dL 10/01/2025 4:41 PM [facility] Creatinine 0.72 0.50 - 1.10 mg/dL 10/01/2025 4:41 PM [facility] eGFR 91 >=60 mL/min/1. 73m2 10/01/2025 4:41 PM [facility] Comment:Calculation based on the Chronic Kidney Disease Epidemiology Collaboration (CKD-EPI) equation refit without adjustment for race. BUN/Creatinine Ratio 15.3 10/01/2025 4:41 PM [facility] Calcium 9.2 8.5 - 10.5 mg/dL 10/01/2025 4:41 PM [facility] AST (SGOT) 29 10 - 42 unit/L 10/01/2025 4:41 PM [facility] ALT (SGPT) 29 10 - 60 unit/L 10/01/2025 4:41 PM [facility] Alkaline Phosphatase 176(H) 42 - 121 unit/L 10/01/2025 4:41 PM [facility] Total Protein 7.0 6.0 - 8.0 g/dL 10/01/2025 4:41 PM [facility] Albumin 4.4 3.2 - 5.0 g/dL 10/01/2025 4:41 PM [facility] Total Bilirubin 0.3 0.0 - 1.4 mg/dL 10/01/2025 4:41 PM [facility] Blood Venous blood specimen / Unknown Venipuncture / Unknown 10/01/2025 11:24 AM EST 10/01/2025 11:24 AM EST Petros OGDEN LAB BLOOD ORDERABLES Brissa sorensen Result [facility] [address] [place] [address], [place] [phone] * ECG-Annotated (09/17/2025) us Provider Onbase MD ECG ORDERABLES Final Result * (ABNORMAL) Urinalysis with reflex microscopic (09/16/2025 3:54 PM EST) Specific Martin Urine 1.017 1.003 - 1.030 LAB URINALYSIS - AUTOMATED METHOD 09/16/2025 4:47 PM [facility] pH, Urine 7.5 5.0 - 8.0 pH LAB URINALYSIS - AUTOMATED METHOD 09/16/2025 4:47 PM [facility] Leukocytes, Urine Negative Negative LAB URINALYSIS - AUTOMATED METHOD 09/16/2025 4:47 PM [facility] Nitrite, Urine Negative Negative LAB URINALYSIS - AUTOMATED METHOD 09/16/2025 4:47 PM [facility] Protein, Urine 30(A) <=Trace mg/dL LAB URINALYSIS - AUTOMATED METHOD 09/16/2025 4:47 PM [facility] Glucose, Urine Negative Negative mg/dL LAB URINALYSIS - AUTOMATED METHOD 09/16/2025 4:47 PM [facility] Ketones, Urine 15(A) Negative mg/dL LAB URINALYSIS - AUTOMATED METHOD 09/16/2025 4:47 PM [facility] Urobilinogen, Urine 1.0 0.2 - 1.0 mg/dL LAB URINALYSIS - AUTOMATED METHOD 09/16/2025 4:47 PM [facility] Bilirubin, Urine Negative Negative LAB URINALYSIS - AUTOMATED METHOD 09/16/2025 4:47 PM [facility] Blood, Urine Negative Negative LAB URINALYSIS - AUTOMATED METHOD 09/16/2025 4:47 PM [facility] RBC, Urine 4 0 - 4 /HPF LAB URINALYSIS - AUTOMATED METHOD 09/16/2025 4:47 PM [facility] WBC, Urine 4 0 - 4 /HPF LAB URINALYSIS - AUTOMATED METHOD 09/16/2025 4:47 PM [facility] Squamous Epithelial, Urine 10 0 - 60 /LPF LAB URINALYSIS - AUTOMATED METHOD 09/16/2025 4:47 PM [facility] Bacteria, Urine Negative Negative /HPF LAB URINALYSIS - AUTOMATED METHOD 09/16/2025 4:47 PM [facility] Urine Urine specimen obtained by clean catch procedure / Unknown Non-blood Collection / Unknown 09/16/2025 3:54 PM EST 09/16/2025 4:15 PM EST us Delfin Lloyd MD LAB URINE ORDERABLES Final Resul t [facility] [address] [place] [address], * CT Head wo Contrast (09/16/2025 1:49 PM EST) Anatomical Region Laterality Modality Head and Neck Computed Tomogra phy 09/16/2025 2:41 PM EST Impressions 09/16/2025 2:42 PM EST NO ACUTE INTRACRANIAL ABNORMALITY. -------- FINAL REPORT -------- Dictated By: Rae Sewell Dictated Date: 09/16/2025 14:41 ET Assigned Physician: Rae Sewell Reviewed and Electronically Signed By: Rae Sewell Signed Date: 09/16/2025 14:42 ET Workstation ID: [id number] Transcribed By: Self Edit Transcribed Date: 09/16/2025 [...] Signed Date: 09/16/2025 14:42 ET Workstation ID: [id number] Transcribed By: Self Edit Transcribed Date: 09/16/2025 14:41 ET Delfin Lloyd MD [facility] PROCEDURES Final Result * Troponin I high sensitivity (09/16/2025 1:32 PM EST) High Sensitivity Troponin I 5 <=54 ng/L LAB CHEMISTRY METHOD 09/16/2025 2:05 PM EST [facility] Blood Venous blood specimen / Unknown Venipuncture / Unknown 09/16/2025 1:32 PM EST 09/16/2025 1:40 PM EST Narrative [facility] - 09/16/2025 2:05 PM EST High levels of biotin in samples may falsely decrease hsTroponin values. Use caution when interpreting hsTroponin results in patients taking biotin who exhibit renal impairment (eGFR <60) or in patients taking more than 20 mg/day of biotin. us Delfin Lloyd MD LAB BLOOD ORDERABLES Final Resul t Performing Organization Address City/[facility]/ZIP Co de Phone Number [facility] [address] [place] [address], [place] [phone] * (ABNORMAL) Beta hydroxybutyrate (09/16/2025 1:25 PM EST) Beta-Hydroxybu tyrate 5.9(H) 0.2 - 2.8 mg/dL LAB CHEMISTRY METHOD 09/16/2025 2:05 PM EST [facility] Blood Venous blood specimen / Unknown Venipuncture / Unknown 09/16/2025 1:25 PM EST 09/16/2025 1:42 PM EST us Delfin Lloyd MD LAB BLOOD ORDERABLES Final Resul t [facility] [address] [place] [address], [place] [phone] * Magnesium (09/16/2025 1:25 PM EST) Magnesium 2.4 1.9 - 2.6 mg/dL LAB CHEMISTRY METHOD 09/16/2025 2:05 PM EST [facility] Blood Venous blood specimen / Unknown Venipuncture / Unknown 09/16/2025 1:25 PM EST 09/16/2025 1:42 PM EST us Delfin Lloyd MD LAB BLOOD ORDERABLES Final Resul t [facility] [address] [place] [address], * (ABNORMAL) Basic Metabolic Panel (BMP) (09/16/2025 1:25 PM EST) Sodium 138 133 - 145 mmol/L LAB CHEMISTRY METHOD 09/16/2025 2:05 PM [facility] Potassium 3.5 3.5 - 5.5 mmol/L LAB CHEMISTRY METHOD 09/16/2025 2:05 PM [facility] Chloride 101 96 - 110 mmol/L LAB CHEMISTRY METHOD 09/16/2025 2:05 PM [facility] CO2 32 21 - 32 mmol/L LAB CHEMISTRY METHOD 09/16/2025 2:05 PM [facility] Anion Gap 5 3 - 11 LAB CHEMISTRY METHOD 09/16/2025 2:05 PM [facility] Glucose 123(H) 70 - 100 mg/dL LAB CHEMISTRY METHOD 09/16/2025 2:05 PM [facility] BUN 9 5 - 25 mg/dL LAB CHEMISTRY METHOD 09/16/2025 2:05 PM [facility] Creatinine 0.58 0.50 - 1.10 mg/dL LAB CHEMISTRY METHOD 09/16/2025 2:05 PM [facility] eGFR 99 >=60 mL/min/1. 73m2 LAB CHEMISTRY METHOD 09/16/2025 2:05 PM [facility] Comment:Calculation based on the Chronic Kidney Disease Epidemiology Collaboration (CKD-EPI) equation refit without adjustment for race. BUN/Creatinine Ratio 15.5 LAB CHEMISTRY METHOD 09/16/2025 2:05 PM [facility] Calcium 8.8 8.5 - 10.5 mg/dL LAB CHEMISTRY METHOD 09/16/2025 2:05 PM EST [facility] Blood Venous blood specimen / Unknown Venipuncture / Unknown 09/16/2025 1:25 PM EST 09/16/2025 1:42 PM EST Delfin Lloyd MD LAB BLOOD ORDERABLES Final Resul t Performing Organization Address City/[facility]/ZIP Co de Phone Number [facility] [address] [place] [address], * 12-Lead ECG (09/16/2025 1:14 PM EST) Ventricular Rate ECG 81 BPM GEMUSE Atrial Rate 81 BPM GEMUSE P-R Interval 150 ms GEMUSE QRS Duration 72 ms GEMUSE Q-T Interval 400 ms GEMUSE QTc 464 ms GEMUSE P Wave [place] 90 degrees GEMUSE R [place] -12 degrees GEMUSE T [place] 36 degrees GEMUSE ECG Interpretation Sinus rhythm [...] is recommended in 1 year. Mammo Location: [facility], [address] [place] [address], [address], . -------- FINAL REPORT -------- Dictated By: Aline Pro Dictated Date: 02/16/2025 14:20 ET Assigned Physician: Aline Pro Reviewed and Electronically Signed By: Aline Pro Signed Date: 02/16/2025 14:25 ET Workstation ID: [id number] Transcribed By: Self Edit Transcribed Date: 02/16/2025 [...] is recommended in 1 year. Mammo Location: [facility], [address] [place] [address], [id number], . -------- FINAL REPORT -------- Dictated By: Aline Pro Dictated Date: 02/16/2025 14:20 ET Assigned Physician: Aline Pro Reviewed and Electronically Signed By: Aline Pro Signed Date: 02/16/2025 14:25 ET Workstation ID: [id number] Transcribed By: Self Edit Transcribed Date: 02/16/2025 14:20 ET Petros OGDEN IMG BI PROCEDURES Final R esult * Diabetes Foot Exam (07/06/2024) Pathologist [facility] Diabetes: Annual Foot Exam Abstracted Historical Provider MD HEALTH MAINTENANCE Final Result * Diabetes Eye Exam (03/15/2024) Pathologist [facility] Diabetes: Annual Retina Eye Exam Abstracted [facility] Provider MD HEALTH MAINTENANCE Final [...] classified as having normal bone density. [facility] Department of Internal Medicine recommends using [...] beclassified as having normal bone density. [facility] Department of Internal Medicine recommendsusing National [...] over-estimation of fracture risk by FRAX. Sarai Alan BERNAL DXA PROCEDURES Final Result * Colonoscopy (07/11/2019) [facility] Colonoscopy No interpretation , abstracted Anatomical Region Laterality Modality Other Historical Provider HEALTH MAINTENANCE Final Result * Hepatitis C Screening (05/17/2013) [facility] Hepatitis C Screening Abstracted Historical Provider HEALTH MAINTENANCE Final Result from Last 3 Months or Most Recently Relevant to Health Maintenance Insurance [employer] MEDICARE Advance Directives Documents on File Type Date Recorded Patient Dandy Tender Expl anation Health Care Decision (hx) 01/28/2019 [...] (hx) 01/26/2019 AD KAPOOR DIRECTIVE Care Teams Shrinker Relationship Specialty Start Date End Date Petros Wren PA [address] [place] [address] PCP - General Internal Medicine 09/25/24
--- OUTSIDE RECORDS SUMMARY | 2025-11-07 12:14 | XMS_ITS | Patient Health Record ---
Author Organization [facility] Address [address] [place] [phone] Care Team Providers Care Airplane Engineer Name Role Phone Colin Leiva MD Primary Care Provider Ricardo Gallegos Unavailable [phone] Allergies Allergen (clinical drug ingredient) Drug/Non Drug [...] W/U Status Risk Notes Problem Plantar fasciitis (052306400) Plantar Fasciitis (728.71) Active confirmed Plan Of Treatment Pending Test Test Name Order Date [id number] TENDON SHEATH/LIGAMENT 1 12/16/2010 Insurance Providers Payer Name Payer Address Payer Phone Subscriber Number Group Number Insured Name Patient Relationship to Insured Coverage Start Date Coverage End Date [facility] Others [address] [place] [address] [phone] [id number] [phone] [id number] Martha Styles Self - patient is the insured Medical (General) History Medical History History ICD Code mumps measles hypertension headaches/migraines back, hip, knee pain asthma Surgical History Surgery Date(Month/Year) cholecystectomy tubal ligation topaz left foot
== END 2025-11-07 10:50 | disposition home or self-care (01) ==
LOC: HO.HMGAL 10:49
PROVIDERS: PCP Physician Assistant Medical; Visit Provider Registered Nurse Emergency
DX: J30.89 Other allergic rhinitis (principal)
CPT/HCPCS: 95117; 95165